=== PATIENT | male | born 1970 | race Caucasian/White ===

== ENCOUNTER → 2018-04-18 01:37 | Outpatient (CLI) | payer OTHER, SELFPAY ==
--- NOTE | 2018-05-01 10:10 | ZIOP_ITS ---
ZIO PATCH REPORT DATE OF DICTATION May 01, 2018 DATE OF RT-04/18/2018 REASON FOR STUDY Palpitations. REQUESTING PROVIDER Kena Rebollar M.D. FINDINGS The patient was monitored for five days and five hours. The predominant underlying rhythm was sinus rhythm. Average heart rate in sinus rhythm 82 beats per m inute. Range 61 to 135 beats per minute. There was rare ectopy. There was a single 5-beat atrial run with an average heart rate of 177 beats per minute. There were no pauses greater than 3 seconds. There was no higher-degree heart block. There were 20 patient events. One event correlated with supraventricular tachycardia, 4 events correl ated with isolated PVCs. All other events did not correlate with arrhythmias. FINAL INTERPRETATION Minor arrhythmias at times symptomatic. Madi Stahl M.D. MARCIA/majo T - 05/01/2018
== END ==
PROVIDERS: PCP Nurse Practitioner Family; Visit Provider Nurse Practitioner Family
DX: R00.2 Palpitations (principal); I49.9 Cardiac arrhythmia, unspecified; I47.1 Supraventricular tachycardia
CPT/HCPCS: 93225

== ENCOUNTER → 2018-04-22 13:07 | Outpatient (CLI) | payer OTHER, SELFPAY | PROVIDERS: PCP Nurse Practitioner Family; Visit Provider Nurse Practitioner Gerontology | DX: I48.91 Unspecified atrial fibrillation (principal); Z79.01 Long term (current) use of anticoagulants | CPT/HCPCS: 36415; 85610 ==

== ENCOUNTER 2018-04-23 09:37 | Emergency (ER) | payer OTHER, SELFPAY ==
[2018-04-23] VITALS (15 sets, daily range): BP systolic 105–129; BP diastolic 69–89; PULSE 73–82; RESP 11–37; TEMP 36.7; O2SAT 94–98
--- NOTE | 2018-04-23 10:04 | DI.REPORT_ITS ---
SYMPTOM/DIAGNOSIS: GI BLEED, WEAKNESS, OUTPATIENT SCHEDULED CHEST X-RAY CHEST X-RAY: PA and lateral. Comparison 01/02/17 The heart is normal in size. The lungs are clear. The mediastinal structures and pleura appear intact. CONCLUSION: Normal chest.
--- NOTE | 2018-04-23 10:06 | ED.GENADUL_ITS ---
Disposition Clinical Impression: GI bleed Disposition: HOME Condition: Improving Instructions: Rectal Bleeding (ED) Additional Instructions: We have made an appointment in surgery clinic for April 30 at 9:15 AM. Please begin daily Metamucil 1 tablespoon at your convenience each day. Return for persistent rectal bleeding, the development of chest pain, shortness of breath, or any other acute concerns. Continue all regular medications. Medical Decision Making - Lab Data Laboratory Results - last 24 hr 04/23/18 04/23/18 04/23/18 10:05 10:05 10:05 WBC 5.34 RBC 4.26 L Hgb 13.9 Hct 39.5 L MCV 92.7 MCH 32.6 MCHC 35.2 RDW 12.2 Plt Count 200 MPV 10.0 Immature Gran % 0.2 Neutrophils % 54.0 Lymphocytes % 32.0 Monocytes % 10.5 Eosinophils % 2.6 Basophils % 0.7 Absolute Neutrophils 2.88 Absolute Lymphocytes 1.71 Absolute Monocytes 0.56 Absolute Eosinophils 0.14 Absolute Basophils 0.04 PT 18.6 H INR 1.9 Sodium 136 Potassium 3.8 Chloride 102 Carbon Dioxide 25.0 Anion Gap 9.0 BUN 12 Creatinine 1.10 Estimated GFR/1.73 m2 >= 60.00 Glucose 108 H Calcium 8.3 L Magnesium 2.2 Total Bilirubin 0.4 AST 16 ALT 31 Alkaline Phosphatase 62 Troponin I < 0.02 Total Protein 7.1 Albumin 3.9 Patient ABO/Rh Antibody Screen 04/23/18 10:05 WBC RBC Hgb Hct MCV MCH MCHC RDW Plt Count MPV Immature Gran % Neutrophils % Lymphocytes % Monocytes % Eosinophils % Basophils % Absolute Neutrophils Absolute Lymphocytes Absolute Monocytes Absolute Eosinophils Absolute Basophils PT INR Sodium Potassium Chloride Carbon Dioxide Anion Gap BUN Creatinine Estimated GFR/1.73 m2 Glucose Calcium Magnesium Total Bilirubin AST ALT Alkaline Phosphatase Troponin I Total Protein Albumin Patient ABO/Rh O Negative Antibody Screen Negative Results reviewed for labs ordered during visit: Yes - EKG Data -: EKG Interpreted by Ut EKG shows normal: sinus rhythm 04/23/18 10:26 Normal sinus rhythm, the rate is 77, QRS narrow, no ST segment elevation present. - Medical Decision Making Pleasant 47-year-old male presents with 3 episodes of bloody brown stool. He has had a mild associated weakness. He arrives with unremarkable vital signs, no acute distress. His exam reveals mild epigastric tenderness without rebound or guarding and positive brown stool with external hemorrhoid present. Differential diagnosis includes gastric or large bowel active bleeding, colitis , external hemorrhoid bleed. He does have pre-standing follow-up with Dr. Sharma for outpatient colonoscopy. IV placed, labs including INR and type and screen obtained. Patient given small aliquot of fluid. Labs are reassuring with hematocrit of 39, platelets 200, INR 1.9, essentially unremarkable chemistries and negative troponin. Comparisons show recent hematocrit ranging 37-43. No active bleeding at this time and therefore feel the risk/benefit of continuing warfarin with this INR weighs in favor of continuing. Patient stable for outpatient follow-up. May be an external hemorrhoid, but he certainly needs more expedient colonoscopy. He has pre-standing follow-up in surgical clinic, we will ask our care management team to assist in speeding up this. Discussed with the patient return precautions to the ER. Stable for outpatient management. History of Present Illness - General Chief complaint: GI Bleed Stated complaint: UNKNOWN Time Seen by Provider: 04/23/18 09:54 Source: patient, RN notes reviewed Mode of arrival: ambulatory Limitations: no limitations - History of Present Illness Initial comments: GI bleed: 47-year-old male presents from home. He has a history of atrial fibrillation and palpitations which is anticoagulated with warfarin and is currently on Zio patch with chest x-ray schedule as an outpatient for today. These are long- standing issues. They have been associated with some shortness of breath. Today he reports 3 episodes of brown stool with bloody streaks. He said an associated gradual onset of a generalized, mild weakness and lightheadedness. Has not had syncope, new chest pain, nor shortness of breath today. No change to diet, no recent antibiotics. No history of GI bleed. No other acute exacerbating or ameliorating factors. Denies use of NSAIDs or daily aspirin. States he has been taking his medications as prescribed - Related Data Nicotine [Nicoderm Cq] 14 mg TD PRN patch 07/27/17 Atorvastatin [Lipitor] 40 mg PO DAILY #90 tab-cap 11/26/17 Metoprolol Succinate 50 mg PO DAILY #90 tab-cap 02/05/18 Trazodone HCl 50 mg PO HS #90 tab 03/07/18 Escitalopram Oxalate 10 mg PO DAILY #90 tab-cap 03/27/18 Diphenhydramine HCl 25 mg PO HS PRN 04/12/18 Lorazepam 0.5 mg PO As directed PRN #20 tab-cap MDD 0.5mg 04/16/18 Warfarin [Coumadin] 2.5 - 5 mg PO QPM #90 tab-cap 04/16/18 Allergies Allergy/AdvReac Type Severity Reaction Status Date / Time hydrocodone AdvReac Mild Headache, Unverified 04/23/18 09:59 Vomiting Review of Systems Other: 8 systems reviewed, otherwise negative Past Medical History - Past Medical History Medical history: AFIB, CVA/TIA, hypertension Surgical history: other (shoulder knee hernia, cardiac ablation) Family history: CAD/IN (mother), cancer (uncles) - Social History Alcohol use: none Drug use: none General Exam - General Limitations: no limitations, other General appearance: alert, in no apparent distress - Head Head exam: Present: atraumatic, normocephalic - Eye Eye exam: Present: PERRL, EOMI - Respiratory Respiratory exam: Present: normal lung sounds bilaterally. Absent: respiratory distress - Cardiovascular Cardiovascular Exam: Present: regular rate, normal rhythm - GI/Abdominal GI/Abdominal exam: Present: soft, tenderness, other (Minimal epigastric tenderness without rebound, guarding. Soft brown stool that is guaiac positive on rectal exam. No masses. There is a hemorrhoid, external at approximately 7: 00. It is not thrombosed or bleeding). Absent: distended - Extremities Exam Extremities exam: Present: normal inspection, normal capillary refill - Neurological Exam Neurological exam: Present: alert, oriented X3 - Psychiatric Psychiatric exam: Present: normal affect, normal mood - Skin Skin exam: Present: warm, dry, intact Course Vital Signs - 24 hr 04/23/18 09:51 Temperature 36.7 C Pulse 79 Respiratory 19 Rate Blood Pressure 129/89 Pulse Oximetry 97
[2018-04-23] MEDS: Normal Saline 1,000 ML 150 ML IV (10:08)
[2018-04-23 10:27] LABS: Abs Immature Grans 0.01 k/cumm (0.0-0.09); Absolute Basophil Count 0.04 k/cumm (0.0-0.2); Absolute Eosinophil Count 0.14 k/cumm (0.0-0.7); Absolute Lymphocyte Count 1.71 k/cumm (1.2-3.4); Absolute Monocyte Count 0.56 k/cumm (0.11-0.7); Absolute Neutrophil Count 2.88 k/cumm (1.2-6.7); Basophils % 0.7; Eosinophils % 2.6; HCT 39.5 % (40.0-50.0); HGB 13.9 g/dL (13.5-17.5); Immature Grans % 0.2; Mean Corp. HGB Concentration 35.2 g/dL (32.0-36.0); Mean Corpuscular Hemoglobin 32.6 pg (27.0-33.0); Mean Corpuscular Volume 92.7 fL (80-95); Monocytes % 10.5; Platelet Count 200 x1000/uL (130-400); RBC 4.26 m/cumm (4.50-6.00); RBC Distribution Width 12.2 % (11.8-14.1); White Blood Cell Count 5.34 k/cumm (4.4-10.8)
[2018-04-23 10:29] LABS: Prothrombin Time 18.6 sec (9.3-10.8)
[2018-04-23 10:35] LABS: ALT 31 U/L (12-78); AST 16 U/L (15-37); Albumin 3.9 g/dL (3.4-5.0); Alkaline Phosphatase 62 U/L (46-116); BUN 12 mg/dL (7-18); Bilirubin, Total 0.4 mg/dL (0.2-1.0); Calcium 8.3 mg/dL (8.5-10.1); Chloride 102 mmol/L (98-107); Glucose 108 mg/dL (70-100); Magnesium 2.2 mg/dL (1.8-2.4); Potassium 3.8 mmol/L (3.5-5.1); Sodium 136 mmol/L (136-145); Total Protein 7.1 g/dL (6.4-8.2)
[2018-04-23 10:36] LABS: INR 1.9 (1.0-3.5)
[2018-04-23 10:37] LABS: Troponin I < 0.02 ng/mL (0.00-0.06)
== END 2018-04-23 11:17 | disposition home or self-care (01) ==
PROVIDERS: Emergency Provider Emergency Medicine; PCP Nurse Practitioner Family
DX: K92.2 Gastrointestinal hemorrhage, unspecified (principal); I10 Essential (primary) hypertension; I48.91 Unspecified atrial fibrillation; Z79.01 Long term (current) use of anticoagulants; R06.00 Dyspnea, unspecified
CPT/HCPCS: 36415; 80053; 86850; 86900; 86901; 93005; 96360; 99284; 71046; 83735; 84484; 85025; 85610; 93010

== ENCOUNTER → 2018-04-26 02:05 | Outpatient (CLI) | payer OTHER, SELFPAY ==
--- NOTE | 2018-04-26 15:30 | PFT_ITS ---
INTERPRETATION SPIROMETRY: Spirometry shows mild obstructive airways disease with no significant bronchodilator response. LUNG VOLUMES: Lung volumes show no evidence of restriction. DIFFUSION CAPACITY: Normal. AIRWAY RESISTANCE: Normal. IMPRESSION: Mild obstructive airways disease with no significant bronchodilator response. When this study was compared to previous one from 01/24 and 12/28/11, the patient initially had a stable lung volume measurement but from 2011 there is an 860 cc. decline in FVC, FEV-1 has declined by 750 cc. Clinical correlation therefore recommended.
[2018-04-26] MEDS: Inhaler, Assist Device 1 EACH MC (16:22)
[2018-04-26] MEDS: Albuterol HFA 18 GM 200 PUFF INH IH (16:23)
== END ==
PROVIDERS: PCP Nurse Practitioner Family; Visit Provider Nurse Practitioner Family
DX: R06.09 Other forms of dyspnea (principal)
CPT/HCPCS: 94060; 94150; 94726; 94729

== ENCOUNTER 2018-05-10 15:30 | Outpatient (RCR) | payer OTHER, SELFPAY ==
--- NOTE | 2018-04-18 13:16 | NT_ITS ---
April 18, 2018 Estuardo cancelled todays scheduled appt. due to a schedule conflict.
--- NOTE | 2018-04-22 16:15 | PTTR_ITS ---
DATE: 04/22/18 SUBJECTIVE: Patient reports he feels like his symptoms are overall about the same. His radicular symptoms down his leg go to same level as last session. He states he has good days and bad days. States he has been trying to do his exercises at home. States he feels relief for a couple hours after treatment sessions. OBJECTIVE: Manual therapy: ([id number]). Performed hamstring, single knee to chest, piriformis, and ITB stretches bilaterally. STM to right lower back. Patient states he feels relief from STM for a couple hours after treatment. Therapeutic procedures ([id number]). [X] See flow sheet: Continued progressing core and hip stabilization program. [X] Provided skilled instruction in proper exercise performance: [X] Provided skilled manual cues to facilitate proper muscle recruitment and/or movement pattern: cues needed to keep breathing throughout session. Declined need for modalities post session. States he will use his TENs unit at home. Direct treatment time: 35 minutes Total treatment time: 35 minutes Daysi Carr, SPT Sydney Mayer, MPT
--- NOTE | 2018-04-29 15:30 | PTTR_ITS ---
DATE: 04/29/18 SUBJECTIVE: Having good days and bad days. Thinks he maybe doing a little better this .past week. Drove to [place] over the weekend. Was seen in ED at the end of last week for an unrelated issues, reluctant to discuss ED info but indicated this was not related to anything we are doing in PT. I did discuss this information with supervising PT. Patient reiterated that he was not interested in performing any exercises in the gym area, not interested in working out with other clients. Would rather do his exercises on his owe. Mentioned that he would like to start lifting again this week, strongly suggested that this would not be a good idea at this time with his right leg radicular issues. OBJECTIVE: Manual therapy: ([id number]). Performed mobilization of lumbopelvic region consisting of SKTC, stretching of hamstrings, piriformis and IT bands. Light soft tissue mobilization throughout the low back and right gluts while in prone position. Due to recent issues with rectal bleeding this was performed conservatively. Therapeutic procedures (51502f1). * X HEP review: Given hooklying marching, unilateral bent knee fall outs and bridging to add to HEP. Able to demonstrate these appropriately in clinic today. See file for copy of written instructions. Stressed avoidance of holding his breath with exercises and avoidance of activation of rectus abdominis. * x See flow sheet: Focus on core and hip stabilization. Did complain of radicular symptoms into the right hamstrings after performing left clam shell exercise today. Was instructed to let us know if any exercises reproduce right radicular symptoms so we can adjust activities accordingly. * x Provided skilled instruction in proper exercise performance * x Provided skilled manual cues to facilitate proper muscle recruitment and/ or movement pattern * Ended session with spot cold to right low back / buttock and global MHP to remaining low back x 7 minutes while in seated position at no charge. ( Originally time was set for 10 minutes, but patient indicated he had had modalities long enough.) Plan: To be seen by supervising PT next week, instructed to continue with HEP. Direct treatment time: 35 minutes Total treatment time: 42 minutes
--- NOTE | 2018-05-10 15:30 | PTTR_ITS ---
DATE: May 10, 2018 SUBJECTIVE: Estuardo reports that he does not feel that his symptoms have gotten any better. He continues to have radiation and nerve shocks in his right leg primarily in the anterior thigh. He notes that his right leg will occasionally give out. He feels that it is going to buckle backwards at times. 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 He knows that he is not always good with his mechanics. But also knows that his back does not seem to be getting better at this time. OBJECTIVE: Manual therapy: ([id number]). Soft tissue stretching to include hamstring, ITB, piriformis, SKC and lumbopelvic distraction via leg pull. STM throughout the entire low back and pelvic brim. CFM and TPR also provided.Reviewed HEP. Continued emphasis on body mechanics and postural awareness. Declined need of modality post session. Held on therex routine at todays session due to level of irritation. Recommend he follow up with his PCP for further intervention via [facility]. Will hold from PT at this time. Direct treatment time: 30 minutes Total treatment time: 30 minutes
== END 2018-05-17 23:59 | disposition home or self-care (01) ==
LOC: PT 15:30
PROVIDERS: PCP Nurse Practitioner Family; Referring Provider Nurse Practitioner Family; Visit Provider Nurse Practitioner Family
DX: M54.16 Radiculopathy, lumbar region (principal); R20.0 Anesthesia of skin; R20.2 Paresthesia of skin; R26.89 Other abnormalities of gait and mobility
CPT/HCPCS: 97110; 97140

== ENCOUNTER 2018-05-16 08:24 | Day surgery (SDC) | payer OTHER, SELFPAY ==
--- NOTE | 2018-05-16 06:41 | PDOC.DISCH_ITS ---
Discharge - Discharge Orders - Discharge Plan Disposition: HOME Condition: Fair Diet:: As Tolerated Equipment/Supplies:: No Equipment Needed Activity:: Activity as Tolerated - Instructions Micromedex Instructions: Colonoscopy (DC), Hemorrhoids (DC), Colorectal Polyps (DC) Additional Instructions: Findings: 1. small polyp 2. internal hemorrhoids 3. external hemorrhoid/rectal prolapse Follow up: depends on final pathology New Medications: none Diet: high fiber diet Medications: restart Coumadin tonight Please call if you develop: fevers >101.5 Nausea or Vomiting Abdominal pain that is not transient 1. Because there will be medication in your system for the next 24 hours, you may feel a little sleepy. Your coordination will be affected. Therefore: a. Do not drive or operate dangerous equipment for 24 hours. b. Do not drink alcohol beverages for 24 hours (not even beer). c. Plan to go home and rest for the day. 2. Generally there are no restrictions on your activity after a day or so has gone by, but you may feel a bit fatigued for a few days. 3 After you arrive home you may have a light meal and return to a normal diet as you can tolerate it without feeling sick to your stomach. 4. After surgery, you may feel pain or discomfort. This should be only transient , but if it persists please contact your doctor. 5. If there are any questions regarding the findings of your procedure, please feel free to contact your doctor. 6. If you are unable to contact your doctor with a problem, contact the hospital at [phone]. 7. Continue all your regular medications unless directed otherwise. I understand the above instructions and have no questions. Signature of Patient or Responsible Adult Escort Date/Time Name of Responsible Adult Escort Signature of Nurse Date/Time
[2018-05-16 08:55] VITALS: BP 117/82; PULSE 79; RESP 16; TEMP 36.7; O2SAT 96
[2018-05-16 09:13] LABS: INR 1.1 (1.0-3.5)
[2018-05-16] MEDS: Lactated Ringers 1,000 ML 80 ML IV (09:26)
[2018-05-16] MEDS: Lactated Ringers 1,000 ML 400 ML IV (10:21)
--- NOTE | 2018-05-16 10:41 | BOWEL_PTH ---
PATIENT: Estuardo Garza LOC: [facility] U#:[id number] AGE/SX: 47/M ROOM: RE05/16/[address]: Kelly Fisher MD : [id number] BED: DIS: 05/16/2018 SPEC #: [id number] RECD: 05/16/18 12:26 STATUS: ETIENNE REQ #: [id number] ESCOBAR: 05/16/18 10:[address]: Kelly Fisher DEPT: Surgical Specimen RECD BY: Yeny Mckeon ENTERED: 05/16/18 12:27 SP TYPE: Bowel OTHR DR: DANISH Case Tissues: 1 - BIOPSY BOWEL Procedures: GROSS AND MICRO LEVEL 4 Comments: [id number]
[2018-05-16 11:02] VITALS: BP 97/62; PULSE 69; RESP 16; TEMP 36.3; O2SAT 97
[2018-05-16 11:15] VITALS: BP 102/64; PULSE 72; RESP 16; TEMP 36.7; O2SAT 96
--- NOTE | 2018-05-16 12:39 | COLE_ITS ---
REPORT OF OPERATIVE PROCEDURE - COLONOSCOPY DATE OF SURGERY May 16, 2018 PREOPERATIVE DIAGNOSIS Occult blood. POSTOPERATIVE DIAGNOSES 1. Small sigmoid polyp. 2. Internal hemorrhoids. 3. External skin tag/prolapse. PROCEDURE PERFORMED Colonoscopy with polypectomy by cold forceps. ANESTHESIA TYPE MAC. ASA - III ANESTHESIA PROVIDER Jaimee Nash CRNA SURGEON Ivory Fisher M.D. KRAFT MILL OPERATOR None. BLOOD LOSS Minimal. SPECIMENS Sigmoid polyp. PREP MiraLax and Dulcolax, which were adequate. COMPLICATIONS No immediate complications. INDICATIONS Mr. Garza is a very pleasant 47-year-old gentleman with a history of occult blood who was seen in t he office for a colonoscopy. The risks, benefits and complications were reviewed with him and he wish ed to proceed. No guarantees were given or implied. FINDINGS A very small flat sigmoid polyp, some internal hemorrhoids, as well as one external skin tag/prolapse . PROCEDURE START - 10:29. PROCEDURE END - 10:42. RETRACTION TIME - From 10:30 to 10:42 OPERATIVE PROCEDURE After informed consent was obtained, the patient was taken to the Endoscopy Suite, placed in the left decubitus position. Monitors were applied and a time-out was done. The patient's name, date of bir th, procedure type, allergies to medications, and metal in his body were all reviewed. The patient wa s then sedated, and once sedated and comfortable a rectal exam was done. External exam was intact wi th some mucosal prolapse. Internal exam revealed normal sphincter tone and a smooth prostate and no p alpable masses. The scope was introduced and retroflexed, some internal hemorrhoids were noted. The scope was straightened and advanced to the cecum without difficulty. The terminal ileum and appendice al orifice were identified. The prep was adequate. The scope was then slowly retracted all the way b ack into the rectum. One small polyp was identified in the sigmoid colon, which was flat, maybe a co uple of millimeters in size and it was removed with cold forceps. One in the rectum, the scope was re moved. The scope was removed and the patient was woken up, and taken back to [facility] in stab le condition. Followup depends on final pathology.
== END 2018-05-16 12:06 | disposition home or self-care (01) ==
PROVIDERS: PCP Nurse Practitioner Family; Visit Provider Surgery
DX: R19.5 Other fecal abnormalities (principal); K63.5 Polyp of colon; K64.8 Other hemorrhoids; K64.4 Residual hemorrhoidal skin tags
CPT/HCPCS: 45380; 36415; 88305; 85610

== ENCOUNTER 2018-05-17 11:12 | Outpatient (CLI) | payer OTHER, SELFPAY ==
--- NOTE | 2018-05-17 11:12 | DI.REPORT_ITS ---
SYMPTOMS/DIAGNOSIS: LT LEG SWELLING, DISCOLORATION, ? DVT, M79.89 LEFT LOWER EXTREMITY ULTRASOUND: The deep veins of the left lower extremity show normal compression, augmentation and color flow. No evidence of a deep venous thrombus is seen. The visualized portions of the greater saphenous vein appear patent. No focal fluid collections are seen in the soft tissues. IMPRESSION: No evidence of a left lower extremity deep venous thrombus.
== END 2018-05-17 11:13 ==
PROVIDERS: PCP Nurse Practitioner Family; Visit Provider Nurse Practitioner Family
DX: M79.89 Other specified soft tissue disorders (principal); R22.42 Localized swelling, mass and lump, left lower limb
CPT/HCPCS: 93971

== ENCOUNTER 2018-05-17 12:07 | Outpatient (CLI) | payer OTHER, SELFPAY ==
[2018-05-17 12:28] LABS: Abs Immature Grans 0.01 k/cumm (0.0-0.09); Absolute Basophil Count 0.03 k/cumm (0.0-0.2); Absolute Eosinophil Count 0.07 k/cumm (0.0-0.7); Absolute Lymphocyte Count 1.65 k/cumm (1.2-3.4); Absolute Monocyte Count 0.54 k/cumm (0.11-0.7); Absolute Neutrophil Count 3.74 k/cumm (1.2-6.7); Basophils % 0.5; Eosinophils % 1.2; HCT 40.6 % (40.0-50.0); HGB 14.2 g/dL (13.5-17.5); Immature Grans % 0.2; Lymphocytes % 27.3; Mean Corpuscular Hemoglobin 32.3 pg (27.0-33.0); Mean Corpuscular Volume 92.5 fL (80-95); Mean Platelet Volume 9.8 fL (8.0-11.0); Monocytes % 8.9; Neutrophils % 61.9; Platelet Count 208 x1000/uL (130-400); RBC 4.39 m/cumm (4.50-6.00); RBC Distribution Width 12.3 % (11.8-14.1); White Blood Cell Count 6.04 k/cumm (4.4-10.8)
[2018-05-17 12:31] LABS: INR 1.2 (1.0-3.5); Prothrombin Time 11.6 sec (9.3-10.8)
[2018-05-17 12:34] LABS: ALT 32 U/L (12-78); AST 18 U/L (15-37); Albumin 4.1 g/dL (3.4-5.0); Alkaline Phosphatase 63 U/L (46-116); Anion Gap 6.6 mmol/L (3-11); BUN 15 mg/dL (7-18); Bilirubin, Total 0.6 mg/dL (0.2-1.0); CO2 27.4 mmol/L (21.0-32.0); CREATININE 1.11 mg/dL (0.70-1.30); Calcium 8.3 mg/dL (8.5-10.1); Chloride 104 mmol/L (98-107); Glucose 88 mg/dL (70-100); Potassium 3.9 mmol/L (3.5-5.1); Sodium 138 mmol/L (136-145); Total Protein 7.4 g/dL (6.4-8.2)
[2018-05-17 12:56] LABS: D-Dimer 712 ng/mlFEU (<500)
== END 2018-05-17 12:08 ==
PROVIDERS: PCP Nurse Practitioner Family; Visit Provider Nurse Practitioner Family
DX: M79.89 Other specified soft tissue disorders (principal)
CPT/HCPCS: 36415; 80053; 85025; 85379; 85610

== ENCOUNTER 2018-05-23 11:58 | Emergency (ER) | payer OTHER, SELFPAY ==
[2018-05-23 12:01] VITALS: BP 132/75; PULSE 80; RESP 16; TEMP 36.7; O2SAT 98
--- NOTE | 2018-05-23 12:30 | ED.GENADUL_ITS ---
Discharge Plan Discharge Details Chief Complaint: Vascular Clinical Impression: Hematoma of left lower extremity Reason For Visit: left leg bruising Primary Care Provider: Kena Rebollar ED Provider: Sav Mackey Disposition Patient Disposition: HOME Condition: Good Home Meds and New Rx's Prescriptions: Continue nicotine 1 EACH patch 24 hour 14 mg Transdermal PRN RF: 0 atorvastatin [Lipitor] 40 MG tablet 40 mg PO DAILY Qty: 90 RF: 3 Metoprolol Succinate 50 MG TAB.ER.24H 50 mg PO DAILY Qty: 90 RF: 3 trazodone 100 MG tablet 50 mg PO HS Qty: 90 RF: 3 escitalopram oxalate 5 MG tablet 10 mg PO DAILY Qty: 90 RF: 0 diphenhydramine HCl 25 MG tablet 25 mg PO HS PRNRF: 0 warfarin [Coumadin] 5 MG tablet 2.5 - 5 mg PO QPM Qty: 90 RF: 4 buspirone 7.5 MG tablet 7.5 mg PO BID Qty: 90 RF: 0 lorazepam 0.5 MG tablet 0.5 - 1 mg PO As directed MDD 1mg PRNQty: 30 RF: 0 acetaminophen [Tylenol] 325 MG tablet 325 mg PO PRN PRNRF: 0 Discharge Instructions Additional Instructions: You likely had a knee strain or hematoma and the bruising should go away in a week or so if symptoms continue next week see your pimary care provider if you have severe worsening of pain, difficulty breathing or fevers return to the emergency department Discharge Data Discharge Physician: Sav Mackey Medical Decision Making [facility] Narrative Medical decision making narrative: 47 yo male with hx of afib on coumadin, cva, who comes in with complaint of left leg bruising. He states 6 or so days ago he twisted the left knee and it became black and blue. He has not had any significant pain but the bruising has spread down his leg so he came here. I suspect the patient had a strain of the knee vs hematoma and now the bruising is going down the leg due to gravity. There is no findings such as posterior calf pain or significant leg swelling to suggest dvt so do not feel u/s indicated at this time. No redness or warmth so doubt infection such as septic joint or cellulitis. Will have him wrap the calf with kd wrap and keep it elevated, will d/c home and advised f/u with pcp and return precautions Differential Diagnosis hematoma, strain, contusion HPI - General Adult General Mode of arrival: ambulatory . Date/Time Provider Initiated Documentation: 05/23/18 12:01 . Limitations to Documentation: no limitations . Information obtained by: patient . History of Present Illness 47 year old M presents to the emergency department with the chief complaint of left leg bruising, described as mild and moderate, with intensity rated at 3. Quality is described as aching, and is localized to the lower extremity. Patient reports no radiation. Patient started experiencing this day(s) (6) No relieving factors improve symptom(s), No exacerbating factors reported . Patient notes no other symptoms.. Patient did receive the following treatments prior to arrival, none Related Data Home Medications Medication Instructions Recorded Confirmed nicotine 14 mg TRANSDERMAL PRN patch 07/27/17 05/23/18 diphenhydramine HCl 25 mg PO HS PRN 04/12/18 05/23/18 acetaminophen [Tylenol] 325 mg PO PRN PRN 05/16/18 05/23/18 Allergies Allergy/AdvReac Type Severity Reaction Status Date / Time hydrocodone AdvReac Mild Headache, Unverified 05/23/18 12:07 Vomiting General Stated Complaint: Vascular NAKITA: 3 Review of Systems Review of Systems All systems reviewed & are unremarkable except as noted in HPI and below Constitutional Denies chills, Denies fever(s) and Denies weakness Eyes Patient Denies loss of vision ENT Denies change in voice Cardiovascular Denies chest pain and Denies dyspnea Respiratory Denies dyspnea Gastrointestinal Denies abdominal pain, Denies nausea and Denies vomiting Genitourinary Denies dysuria Musculoskeletal Reports joint swelling and Denies limited range of motion Neurologic Denies loss of vision and Denies weakness Psychiatric Denies depression Endocrine Denies cold intolerance and Denies heat intolerance Allergic/Immunologic Reports urticaria PFSH Family History Mother Presence of permanent cardiac pacemaker Diabetes Atrial fibrillation Heart disease Father Essential hypertension Sister Diabetes Son No problems noted. Son No problems noted. Paternal Grandmother Dementia Paternal Grandfather No problems noted. Paternal Uncle Colon cancer Paternal Aunt Breast cancer Medical History Anxiety CVA (cerebral vascular accident) Chronic low back pain Colon polyps Essential hypertension Hyperlipidemia Irritable bowel syndrome MARY (obstructive sleep apnea) Obesity Paroxysmal atrial fibrillation (11/20/16) Sensorineural hearing loss Tinnitus Social History current occupation: [employer] pets and animals: Yes pets and animals: cat(s) and dog(s) Smoking/Tobacco Use Status: Current every day passive smoking exposure: No alcohol intake: never substance use type: does not use special essence needs: No Surgical History Ablation and pulmonary vein isolation (02/05/17) Colonoscopy - MAC Repair of inguinal hernia Repair, Undescended Testicle Right knee surgery (~1988) Right shoulder surgery (08/26/08) Vasectomy (03/18/10) Exam Const General: no acute distress Orientation: alert HENMT Head: normal to inspection Ears: external ears normal General nose exam: external nose normal Mouth: moist mucous membranes Eyes General: appearance normal, both eyes and all related structures Neck Neck: normal visual inspection Resp Effort & Inspection: normal respiratory effort and able to speak in complete sentences Cardio Rate: regular rate Skin General skin exam: no rashes or lesions noted Neuro General: alert and oriented x3 Extrem General: full ROM, normal capillary refill and other (bruising to lateral left calf and medial right foot without significant pain and full rom, intact sensation, no posterior calf pain or diffuse leg swelling, 2+ dp/pt pulses) Psych Mental Status: mental status grossly normal Course Vital Signs Temperature 36.7 C 05/23/18 12:01 Pulse 80 05/23/18 12:01 Respiratory Rate 16 05/23/18 12:01 Blood Pressure 132/75 05/23/18 12:01 Pulse Oximetry 98 05/23/18 12:01 Temperature 36.7 C 05/23/18 12:01 Pulse 80 05/23/18 12:01 Respiratory Rate 16 05/23/18 12:01 Blood Pressure 132/75 05/23/18 12:01 Pulse Oximetry 98 05/23/18 12:01
[2018-05-23 12:36] VITALS: BP 121/80; PULSE 82; RESP 16; TEMP 36.6; O2SAT 97
== END 2018-05-23 12:37 | disposition home or self-care (01) ==
LOC: ER 12:52
PROVIDERS: Emergency Provider Emergency Medicine; PCP Nurse Practitioner Family
DX: S80.12XA Contusion of left lower leg, initial encounter (principal); X50.1XXA Overexertion from prolonged static or awkward postures, initial encounter; I10 Essential (primary) hypertension; Z79.01 Long term (current) use of anticoagulants
CPT/HCPCS: 99282

== ENCOUNTER 2018-05-24 01:41 | Outpatient (CLI) | payer OTHER, SELFPAY ==
--- NOTE | 2018-05-24 08:41 | DI.MRI_ITS ---
SYMPTOM/DIAGNOSIS: CHRONIC LOW BACK PAIN, ? WORSENING STENOSIS, LUMBAR RADICULOPATHY, M54.15, RT LEG PAIN AND NUMBNESS LUMBAR SPINE MRI: Comparison is made with 04/05/17. T 1, T 2 and STIR sagittal, T 1 and T 2 axial and T 1 coronal sequences were performed. Degenerative disc changes are again noted throughout the lumbar spine. There is loss of disc height and endplate osteophyte formation at all levels. There are degenerative signal changes in the endplates, greatest at L 4-5. Degenerative changes are most severe at L 4- 5. There is again noted to be severe neural foraminal narrowing at this level. Severe right neural foraminal narrowing is seen at L 5-S 1, unchanged. There is a mild degenerative scoliosis, stable. There is no evidence of a disc herniation. IMPRESSION: Stable degenerative changes of the lumbar spine, most severe at L 4-5.
== END 2018-05-24 02:01 ==
PROVIDERS: PCP Nurse Practitioner Family; Visit Provider Nurse Practitioner Family
DX: M54.5 Low back pain (principal); M79.661 Pain in right lower leg; M54.17 Radiculopathy, lumbosacral region; M51.17 Intervertebral disc disorders with radiculopathy, lumbosacral region
CPT/HCPCS: 72148

== ENCOUNTER 2018-06-03 01:23 | Outpatient (CLI) | payer OTHER, SELFPAY ==
[2018-06-03 08:09] LABS: INR 2.3 (1.0-3.5); Prothrombin Time 21.8 sec (9.3-10.8)
== END 2018-06-03 01:43 ==
PROVIDERS: PCP Nurse Practitioner Family; Visit Provider Nurse Practitioner Family
DX: I48.91 Unspecified atrial fibrillation (principal); Z79.01 Long term (current) use of anticoagulants
CPT/HCPCS: 36415; 85610

== ENCOUNTER 2018-06-18 02:34 | Outpatient (CLI) | payer OTHER, SELFPAY ==
[2018-06-18 09:39] LABS: INR 1.7 (1.0-3.5); Prothrombin Time 16.3 sec (9.3-10.8)
== END 2018-06-18 02:54 ==
PROVIDERS: PCP Nurse Practitioner Family; Visit Provider Nurse Practitioner Family
DX: I48.91 Unspecified atrial fibrillation (principal); Z79.01 Long term (current) use of anticoagulants
CPT/HCPCS: 36415; 85610

== ENCOUNTER 2018-07-03 02:07 | Outpatient (CLI) | payer OTHER, SELFPAY ==
[2018-07-03 09:05] LABS: INR 1.8 (1.0-3.5); Prothrombin Time 17.3 sec (9.3-10.8)
== END 2018-07-03 02:27 ==
PROVIDERS: PCP Nurse Practitioner Family; Visit Provider Nurse Practitioner Family
DX: I48.91 Unspecified atrial fibrillation (principal); Z79.01 Long term (current) use of anticoagulants
CPT/HCPCS: 36415; 85610

== ENCOUNTER 2018-08-16 00:56 | Outpatient (CLI) | payer OTHER, SELFPAY ==
[2018-08-16 08:53] LABS: INR 2.2 (1.0-3.5); Prothrombin Time 20.9 sec (9.3-10.8)
== END 2018-08-16 01:16 ==
PROVIDERS: PCP Nurse Practitioner Family; Visit Provider Nurse Practitioner Family
DX: I48.91 Unspecified atrial fibrillation (principal); Z79.01 Long term (current) use of anticoagulants
CPT/HCPCS: 36415; 85610

== ENCOUNTER 2018-09-25 01:02 | Outpatient (CLI) | payer OTHER, SELFPAY ==
[2018-09-25 09:49] LABS: INR 2.1 (0.9-1.1); Prothrombin Time 21.5 sec (9.3-11.0)
== END 2018-09-25 01:22 ==
PROVIDERS: Nurse Practitioner Gerontology; PCP Nurse Practitioner Family; Visit Provider Nurse Practitioner Family
DX: I48.91 Unspecified atrial fibrillation (principal); Z79.01 Long term (current) use of anticoagulants
CPT/HCPCS: 36415; 85610

== ENCOUNTER 2018-10-07 00:06 | Outpatient (CLI) | payer OTHER, SELFPAY ==
--- NOTE | 2018-10-07 07:17 | MERGEMPI_ITS ---
*[facility]* *[facility]* [address] [place] [address] Myocardial Perfusion Imaging - SPECT Clement protocol Date of study: 10/07/2018 *PATIENT PRESENTATION* Height: 170.2cm (67in) Blood Pressure: Weight: 97.7kg (215lb) BSA: 2.19m^2 Referring physician: Sav Wang MD Ordering physician: Felipa Munoz Impressions: Normal perfusion by Tc99m Sestamibi Imaging. Summary: 1. Myocardial perfusion imaging: No myocardial perfusion defects noted. 2. The calculated left ventricular ejection fraction after stress: 55%. 3. Stress: The target heart rate was achieved. Indication: R07.9 I 48.91. History: REASON FOR TESTING: EXERTIONAL CHEST DISCOMFORT DURING STRESS TEST DONE IN FEBRUARY 2018. HE IS HERE TODAY FOR PERFUSION STUDY TO RISK STRATIFY FURTHER. PATIENT DENIES CHEST PAIN/PRESSURE AND SHORTNESS OF BREATH TODAY. SIGNIFICANT PAST MEDICAL HISTORY: SYMPTOMATIC PAROXYSMAL ATRIAL FIBRILLATION WITH ABLATION THERAPY DONE IN JANUARY 2017, CVA, MARY ON BIPAP THERAPY. SMOKING STATUS: NEVER EXERCISE ROUTINE: DAILY ADL'S Risk factors: Family history of coronary artery disease. Hypertension. Obesity. Dyslipidemia. Cholesterol: 132mg/dl. HDL: 33mg/dl. LDL: 68mg/dl. Triglycerides: 182mg/dl. ALLERGIES: HYDROODONE. MEDICATIONS: LIPITOR 40 MG DAILY, COUMADIN DAILY 5 DAILY AND 2.5 MG ON SUNDAY, DILTIAZEM CD 120 MG DAILY, TYLENOL 1000 MG PRN. Imaging Technique: Protocol: Clement protocol. Acquisition: Gated SPECT; 1 day - rest/stress. The patient was imaged in the supine position. Attenuation correction used. Isotope administration: - Rest. Tc[99m]-sestamibi. Dose: 12.1mCi. Date: 10/07/2018. Injection time: 08:20 AM. Injection to stress time: 00:45. - Stress. Tc[99m]-sestamibi. Dose: 37mCi. Injection time: 10:00 AM. 1-2 min before end of exercise Baseline ECG: SINUS RHYTHM. T WAVE INVERSION IN LEAD V1, NOT SEEN ON EKG FROM 04/23/2019. Stress protocol: + +---+ + !Stage !HR !BP (mmHg) ! + +---+ + !Baseline supine !81 !120/90 (100)! + +---+ + !Baseline standing !87 !122/96 (105)! + +---+ + !Stage I; 1.7mph, 10degrees; 3 min !103!138/80 (99) ! + +---+ + !Stage II; 2.5mph, 12degrees; 3 min !117!138/80 (99) ! + +---+ + !Stage III; 3.4mph, 14degrees; 3 min!132!160/80 (107)! + +---+ + !Peak stress !148! ! + +---+ + !Recovery; 1 min !130!150/80 (103)! + +---+ + !Recovery; 3 min !107!148/80 (103)! + +---+ + !Recovery; 6 min !101!130/86 (101)! + +---+ + !Recovery; 9 min !102!130/86 (101)! + +---+ + !Recovery; 12 min !102!116/90 (99) ! + +---+ + * Stress results: Maximal heart rate during stress was 148bpm (87% of maximal predicted heart rate). The maximal predicted heart rate was 171bpm. The target heart rate was achieved. The rate-pressure product for the peak heart rate and blood pressure was 05423jq Hg/min. Stress ECG: STRESS TEST ENDED IN 10 MINUTES 37 SECONDS DUE TO RIGHT LEG CRAMPS. NORMAL HEART RATE AND BLOOD PRESSURE RESPONSE TO EXERCISE. MAX HEART RATE: 148 86 % OF TARGET HEART RATE MET'S: 12.36 NO ECTOPY. NO ANGINA. T WAVES INVERSIONS AT BASELINE IN LEAD V1 THEN FLATTENED AT 2 MINUTES & 49 SECONDS OF EXERCISE TO 4 MINUTE RECOVERY. T-WAVES INVERTED RETURNED AGAIN IN V1 AT 4 MINUTE RECOVERY. NO SIGNIFICANT ST SEGMENT CHANGES. FUNCTIONAL CAPACITY: ABOVE AVERAGE CAPACITY Myocardial perfusion: Imaging information: gated. No myocardial perfusion defects noted. Ventricular Function (Wall Motion): The calculated left ventricular ejection fraction after stress: 55%. Study data: Sav Wang MD supervised and was readily available during the procedure. This study was interpreted by [facility]. Study status: Routine. Consent: The risks, benefits, and alternatives to the procedure were explained to the patient and informed consent was obtained. Procedure: Initial setup. A baseline ECG was recorded. Surface ECG leads and manual cuff blood pressure measurements were monitored. Heart sounds: Normal. Lung sounds: Normal. Treadmill exercise testing was performed using the Clement protocol. Study completion: All catheters inserted during the procedure were removed. The patient tolerated the procedure well and was discharged from the lab. Discharge: The patient left the laboratory in stable condition. Birthdate: Patient birthdate: 1970. Sex: Gender: male. Study date: Study date: 10/07/2018. Study time: 07:17 AM. Electronically signed by Sav Wang MD 10/07/2018 15:59
== END 2018-10-07 00:26 ==
PROVIDERS: PCP Nurse Practitioner Family; Visit Provider Internal Medicine Cardiovascular Disease
DX: R07.9 Chest pain, unspecified (principal); I48.0 Paroxysmal atrial fibrillation; I10 Essential (primary) hypertension; E78.5 Hyperlipidemia, unspecified; Z82.49 Family history of ischemic heart disease and other diseases of the circulatory system
CPT/HCPCS: 78452; 93017

== ENCOUNTER 2018-11-07 00:59 | Outpatient (CLI) | payer OTHER, SELFPAY ==
[2018-11-07 08:12] LABS: INR 2.3 (0.9-1.1); Prothrombin Time 22.7 sec (9.3-11.0)
== END 2018-11-07 01:19 ==
PROVIDERS: PCP Nurse Practitioner Family; Visit Provider Nurse Practitioner Family
DX: I48.91 Unspecified atrial fibrillation (principal); Z79.01 Long term (current) use of anticoagulants
CPT/HCPCS: 36415; 85610

== ENCOUNTER 2018-12-04 02:36 | Outpatient (CLI) | payer OTHER, SELFPAY ==
[2018-12-04 12:56] LABS: INR 2.2 (0.9-1.1); Prothrombin Time 22.3 sec (9.3-11.0)
== END 2018-12-04 02:56 ==
PROVIDERS: PCP Nurse Practitioner Family; Visit Provider Nurse Practitioner Family
DX: I48.91 Unspecified atrial fibrillation (principal); Z79.01 Long term (current) use of anticoagulants
CPT/HCPCS: 36415; 85610

== ENCOUNTER 2018-12-05 14:35 | Outpatient (CLI) | payer OTHER, SELFPAY | END 2018-12-05 14:55 | PROVIDERS: PCP Nurse Practitioner Family; Visit Provider Internal Medicine Cardiovascular Disease | DX: R00.0 Tachycardia, unspecified (principal); I48.0 Paroxysmal atrial fibrillation | CPT/HCPCS: 93225 ==

== ENCOUNTER 2018-12-10 11:36 | Outpatient (CLI) | payer OTHER, SELFPAY ==
--- NOTE | 2018-12-10 16:33 | HOLTER_ITS ---
HOLTER REPORT Date of dictation: December 10, 2018 Study Indication: Not available. Requesting Provider: Felipa Munoz M.D. Findings: The patient was monitored for 2 days. Baseline sinus rhythm. Average heart rate 91 bpm, range 67-143 bpm. There were 19 PVCs and 1 couplet. There were 16 PACs. There was one 3-beat atrial run, maximum heart rate 231 bpm. One patient event, which did not correlate with arrhythmias. Final Interpretation: No significant tachy or arash arrhythmias.
== END 2018-12-10 11:56 ==
PROVIDERS: PCP Nurse Practitioner Family; Visit Provider Internal Medicine Cardiovascular Disease
DX: R00.0 Tachycardia, unspecified (principal); I48.0 Paroxysmal atrial fibrillation
CPT/HCPCS: 93226

== ENCOUNTER 2018-12-11 01:47 | Outpatient (CLI) | payer OTHER, SELFPAY ==
--- NOTE | 2018-12-11 15:00 | DI.CT_ITS ---
SYMPTOM/DIAGNOSIS: ? EPIGASTRIC HERNIA OR UMBILICAL HERNIA, K46.9, BULGE ABDOMEN CT: Oral contrast was administered prior to the exam. No IV contrast was administered. There is a small amount of fat seen at the umbilicus, not significantly changed from 2012. No additional abdominal wall hernias are seen. There is no evidence of a hiatal hernia or diaphragmatic hernia. The liver, gallbladder, spleen, pancreas, kidneys and adrenals are unremarkable. The visualized portions of the bowel are also unremarkable. Degenerative changes are seen in the spine. IMPRESSION: Stable small fatty containing umbilical hernia.
== END 2018-12-11 02:07 ==
PROVIDERS: PCP Nurse Practitioner Family; Visit Provider Nurse Practitioner Family
DX: R19.00 Intra-abdominal and pelvic swelling, mass and lump, unspecified site (principal); K42.9 Umbilical hernia without obstruction or gangrene
CPT/HCPCS: 74150

== ENCOUNTER 2019-01-14 10:31 | Outpatient (CLI) | payer OTHER, SELFPAY ==
[2019-01-14 11:01] VITALS: BP 120/79; PULSE 86; RESP 22; TEMP 36.8; O2SAT 96
[2019-01-14 11:17] LABS: Prothrombin Time 10.4 sec (9.3-11.0)
--- NOTE | 2019-01-14 12:43 | DI.RAD_ITS ---
SYMPTOMS/DIAGNOSIS: LUMBAR SPONDYLOSIS PAIN CLINIC LUMBAR SPINE: Fluoroscopy Time: 48.3 sec Fluoroscopy was utilized by Dr. Guevara during the performance of a lumbar medial branch block. Please refer to the procedure report for complete details.
[2019-01-14 12:44] VITALS: BP 142/94; PULSE 87; RESP 15; O2SAT 98
[2019-01-14] MEDS: Omnipaque 240 MG/ML 50 ML BTL IJ (12:45)
[2019-01-14] MEDS: Bupivacaine 0.5% Pres-Free 10 ML VIAL IJ (12:46)
--- NOTE | 2019-01-14 12:47 | PDOC.PAIN_ITS ---
Pain Clinic Procedure Note Current Active Problems Problem Status Onset Lumbosacral spondylosis without myelopathy Acute Lumbar/Sacral Medial Branch Blocks ESTEFANY NEELY has been referred to the [facility] for lumbar/sacral medial branch blocks. COMMENTS: I reviewed the Pain Clinic note from Ms. Mejia. Patient was interviewed and the medical record reviewed. There were no medical, pharmacologic, radiographic or other structural contraindications to attempting fluoroscopically guided local anesthetic lumbar/sacral medial branch blocks. Risks and expected side effects as well as potential benefit of the procedure were reviewed and voiced concerns addressed. The printed consent form was si gned and witnessed. Standard time-out procedure was performed. Patient was placed in the prone position on the fluoroscopy table and automated blood pressure cuff and pulse oximeter applied. The skin entry points for approaching the anatomic target points of the segmental medial branches of bilateral L3-L5 were identified with anfluoroscopy and marked. Following thorough Chlorhexadine preparation of the skin and draping and 1% lidocaine infiltration of the skin entry points and subcutaneous tissues, a 25 gauge 3.5 spinal needle was placed under fluoroscopic guidance down on to the target point for each respective segmental medial branch.Position was confirmed in A/P, oblique and lateral views with 0.25ml of omnipaque 240. At this point I injected 0.5 cc of 0.5% Bupivacaine at each segmental nerve. Vital signs were stable throughout the procedure and were as recorded in the docflowsheet by the nursing staff. Follow up plans and appointments were discussed and was instructed to keep careful note of how the usual pain was modified by these injections. Specifically was asked to keep a pain diary for the next 24 hours using a numeric pain scale of 0-10 and report these results at the follow-up visit. Post procedure instruction was given as documented in the nursing documentation and having met discharge criteria. Patient was discharged from the Pain [facility]. Based on the medial branches blocked today, if the patient has adequate relief and we are able to proceed to radiofrequency ablation, the treatment should result in the denervation of the bilateral L4-L5 and L5-S1 FACET JOINTS. We would expect to denervate a total of 4 facets during the radiofrequency ablation. COMMENTS:He will call back tomorrow with his 1-4 hour post-procedure pain scores. CC: DANISH Case
== END 2019-01-14 10:51 ==
PROVIDERS: PCP Nurse Practitioner Family; Visit Provider Preventive Medicine Occupational Medicine
DX: M47.817 Spondylosis without myelopathy or radiculopathy, lumbosacral region (principal)
CPT/HCPCS: 64493 ×2; 64494 ×2; 36415; 72100; 85610; Q9967

== ENCOUNTER 2019-01-28 08:45 | Outpatient (CLI) | payer OTHER, SELFPAY ==
[2019-01-28 09:05] VITALS: BP 132/90; PULSE 88; RESP 20; TEMP 36.5; O2SAT 97
[2019-01-28 10:58] VITALS: BP 136/90; PULSE 83; RESP 15; O2SAT 100
--- NOTE | 2019-01-28 10:59 | DI.RAD_ITS ---
SYMPTOMS/DIAGNOSIS: LUMBAR SPONDYLOSIS PAIN CLINIC C-ARM FLUOROSCOPY OF THE LUMBAR SPINE: Fluoroscopy Time: 52.8 sec 18.42 mGy Fluoroscopy was provided for guidance of lumbar spine Pain Clinic injection. Please see procedure note for details.
--- NOTE | 2019-01-28 11:01 | PDOC.PAIN_ITS ---
Pain Clinic Procedure Note Current Active Problems Problem Status Onset Lumbosacral spondylosis without myelopathy Acute Lumbar/Sacral Medial Branch Blocks #2 ESTEFANY NEELY has been referred to the [facility] for lumbar/sacral medial branch blocks. COMMENTS: Great relief with the last LMBB at bilateral L3-L5DR Patient was interviewed and the medical record reviewed. There were no medical, pharmacologic, radiographic or other structural contraindications to attempting fluoroscopically guided local anesthetic lumbar/sacral medial branch blocks. Risks and expected side effects as well as potential benefit of the procedure were reviewed and voiced concerns addressed. The printed consent form was signed and witnessed. Standard time-out procedure was performed. Patient was placed in the prone position on the fluoroscopy table and automated blood pressure cuff and pulse oximeter applied. The skin entry points for approaching the anatomic target points of the segmental medial branches of bilateral L3-L5DR were identified with anfluoroscopy and marked. Following th orough Chlorhexadine preparation of the skin and draping and 1% lidocaine infiltration of the skin entry points and subcutaneous tissues, a 22 gauge spinal needle was placed under fluoroscopic guidance down on to the target point for each respective segmental medial branch.Position was confirmed in A/P, oblique and lateral views with 0.25ml of omnipaque 240. At this point I injected 0.5cc of 2% Lidocaine. Vital signs were stable throughout the procedure and were as recorded in the docflowsheet by the nursing staff. Follow up plans and appointments were discussed and was instructed to keep c areful note of how the usual pain was modified by these injections. Specifically was asked to keep a pain diary for the next 24 hours using a numeric pain scale of 0-10 and report these results at the follow-up visit. Post procedure instruction was given as documented in the nursing documentation and having met discharge criteria. Patient was discharged from the [facility]. Based on the medial branches blocked today, if the patient has adequate relief and we are able to proceed to radiofrequency ablation, the treatment should result in the denervation of the bilateral L4-L5 and L5-S1 FACET JOINTS. We would expect to denervate a total of 4 facets during the radiofrequency ablation. COMMENTS: He will call back with his 1-4 hour post-procedure pain scores. CC: DANISH Case
[2019-01-28] MEDS: Omnipaque 240 MG/ML 50 ML BTL IJ (11:10)
[2019-01-28] MEDS: Lidocaine 2% Pres-Free 5 ML VIAL IJ (11:11)
== END 2019-01-28 09:05 ==
PROVIDERS: PCP Nurse Practitioner Family; Visit Provider Preventive Medicine Occupational Medicine
DX: M47.817 Spondylosis without myelopathy or radiculopathy, lumbosacral region (principal)
CPT/HCPCS: 64493 ×2; 64494 ×2; 36415; 72100; 85610; Q9967

== ENCOUNTER 2019-01-29 08:37 | Outpatient (CLI) | payer OTHER, SELFPAY ==
--- NOTE | 2019-01-29 06:00 | DI.RAD_ITS ---
SYMPTOM/DIAGNOSIS: LUMBAR SPONDYLOSIS C-ARM: Fluoroscopy Time: 67.5 seconds C-arm fluoroscopy was utilized by Dr. Jimenez during reported bilateral L 3 through L 5 RF ablation. Hard copies show needle placement adjacent to the pedicles of what appear to be L 4, L 5 and S 1 bilaterally.
[2019-01-29 08:43] VITALS: BP 112/80; PULSE 79; RESP 20; TEMP 36.5; O2SAT 95
[2019-01-29] MEDS: Midazolam 2 MG/2 ML VIAL IVP (09:54)
[2019-01-29] MEDS: fentaNYL 100 MCG/2 ML VIAL IVP ×2 (09:56→10:00)
[2019-01-29] MEDS: Lactated Ringers 1,000 ML 80 ML IV (09:56)
[2019-01-29 10:30] VITALS: BP 126/78; PULSE 76; RESP 14; O2SAT 97
[2019-01-29] MEDS: Lidocaine 1% Pres-Free 30 ML VIAL IJ (10:38)
--- NOTE | 2019-01-29 10:42 | PDOC.PAIN ---
Pain Clinic Procedure Note Current Active Problems Problem Status Onset Lumbosacral spondylosis without myelopathy Acute LUMBAR/SACRAL MEDIAL BRANCH RADIOFREQUENCY COOLED ESTEFANY NEELY has been referred to the [facility] for radiofrequency treatment of chronic axial back pain. ESTEFANY has had long standing back pain thought to be facet joint generated and which has been refractory to other therapies. Local anesthetic medial branch blocks or intra-articular facet joint injections resulted in ESTEFANY reporting reduction of the usual axial component of pain for at least the duration of the local anesthetic effect. COMMENTS: The patient had 2 medial branch blocks which gave him good relief but not 100% the last one was approximately 70%. Patient was interviewed and the medical record reviewed. There were no medical, pharmacologic, radiographic or other structural contraindications to attempting fluoroscopically guided radiofrequency treatment. Risks and expected side effects as well as potential benefit of the procedure were reviewed and voiced concerns addressed. The printed consent form was signed and witnessed. Standard time-out procedure was performed. Patient was placed in the prone position on the fluoroscopy table and automated blood pressure cuff and pulse oximeter applied. The skin entry points for approaching the anatomic target points of the segmental medial branches of {bilateral: L3, 4, 5} were identified with fluoroscopy and marked. Following thorough Chlorhexadine preparation of the skin and draping and 1% lidocaine infiltration of the skin entry points and subcutaneous tissues, a single 17 guage 4 cm 10mm active tip radiofrequency cannula was placed under fluoroscopic guidance along or across the anatomic course of each respective segmental medial branch. Each placement was stimulated at 50Hz and les then 0.5V for medial branch sensory localization and the at 2Hz and up to 3 times the sensory voltage without any evidence of distal myotomal stimulation. 1cc of 1% ;idocaine was injected at each site. At each placement a continuous mode radiofrequency treatment was done at 60 degrees for 150 seconds. This radiofrequency treatment should result in the denervation of the { bilateral L4-5, L5-S1 FACET JOINTS}.~ A total of {4} facets were expected to be denervated from today's treatment. Vital signs were stable throughout the procedure and were as recorded in the docflowsheet by the nursing staff. If given, dosages of intravenous drugs for anxiolysis and analgesia were documented in the Medication Administration Record (MAR). Follow up plans and appointments were discussed. Post procedure instruction was given as documented in the nursing documentation and having met discharge criteria, ESTEFANY was discharged from the Pain Management Center. COMMENTS: Versed 1 mg. Fentanyl 100 mcg given. He will follow-up as needed. I reviewed the patient's MRI with him because he asked me what to do if this does not work. He does have both Modic 1 and Modic 2 changes at the L4?5 and L5-S1 respectively. There is also some foraminal narrowing at multiple levels. I suggested if he is having radicular symptoms we could do an epidural steroid injection. I also suggested he might be a candidate for basivertebral nerve ablation. CC: DANISH Case
== END 2019-01-29 08:57 ==
PROVIDERS: PCP Nurse Practitioner Family; Visit Provider Anesthesiology Pain Medicine
DX: M47.817 Spondylosis without myelopathy or radiculopathy, lumbosacral region (principal); G89.29 Other chronic pain
CPT/HCPCS: 64635 ×2; 64636 ×2; 72100; J2250; J3010

== ENCOUNTER 2019-02-07 06:10 | Outpatient (CLI) | payer OTHER, SELFPAY ==
[2019-02-07 07:43] LABS: INR 1.4 (0.9-1.1); Prothrombin Time 14.5 sec (9.3-11.0)
== END 2019-02-07 06:30 ==
PROVIDERS: Nurse Practitioner Family; PCP Nurse Practitioner Family; Visit Provider Nurse Practitioner Family
DX: Z79.01 Long term (current) use of anticoagulants (principal); I48.0 Paroxysmal atrial fibrillation
CPT/HCPCS: 36415; 85610

== ENCOUNTER 2019-02-14 02:02 | Outpatient (CLI) | payer OTHER, SELFPAY ==
[2019-02-14 09:15] LABS: INR 1.6 (0.9-1.1); Prothrombin Time 16.1 sec (9.3-11.0)
== END 2019-02-14 02:22 ==
PROVIDERS: PCP Nurse Practitioner Family; Visit Provider Nurse Practitioner Family
DX: I48.91 Unspecified atrial fibrillation (principal); Z79.01 Long term (current) use of anticoagulants
CPT/HCPCS: 36415; 85610

== ENCOUNTER 2019-02-19 00:45 | Outpatient (CLI) | payer OTHER, SELFPAY ==
--- NOTE | 2019-02-19 13:15 | DI.COMBO_ITS ---
SYMPTOMS/DIAGNOSIS: RIGHT BREAST MASS, N63.10, OUTER SIDE X 2 MONTHS MAMMOGRAM AND RIGHT BREAST ULTRASOUND: No priors for comparison. There is bilateral breast tissue in the retroareolar region, right greater than left. The findings are most consistent with gynecomastia bilaterally. No solid mass or abnormal calcifications are seen. The skin and axilla are unremarkable. A right breast ultrasound was performed. Breast tissue is seen in the retroareolar region. No suspicious cystic or solid masses are present. IMPRESSION: Findings consistent with bilateral gynecomastia, right greater than left. No findings to suggest malignancy. Category 2, breast density B. The findings were discussed with the patient on the date of the examination. SA ASSESSMENT OF FINDINGS: Negative with benign findings. Category 2. Patient will receive a letter notifying them of these results. BI-RADS category B. There are scattered areas of fibroglandular density.
== END 2019-02-19 01:05 ==
PROVIDERS: PCP Nurse Practitioner Family; Visit Provider Emergency Medicine
DX: N63.11 Unspecified lump in the right breast, upper outer quadrant (principal); N62 Hypertrophy of breast
CPT/HCPCS: 76642; 77062; 77066; G0279

== ENCOUNTER 2019-02-21 02:56 | Outpatient (CLI) | payer OTHER, SELFPAY ==
[2019-02-21 07:42] LABS: Prothrombin Time 20.3 sec (9.3-11.0)
== END 2019-02-21 03:16 ==
PROVIDERS: PCP Nurse Practitioner Family; Visit Provider Nurse Practitioner Family
DX: I48.91 Unspecified atrial fibrillation (principal); Z79.01 Long term (current) use of anticoagulants
CPT/HCPCS: 36415; 85610

== ENCOUNTER 2019-02-28 02:35 | Outpatient (CLI) | payer OTHER, SELFPAY ==
[2019-02-28 08:19] LABS: INR 2.3 (0.9-1.1); Prothrombin Time 23.4 sec (9.3-11.0)
== END 2019-02-28 02:55 ==
PROVIDERS: PCP Nurse Practitioner Family; Visit Provider Nurse Practitioner Family
DX: I48.91 Unspecified atrial fibrillation (principal); Z79.01 Long term (current) use of anticoagulants
CPT/HCPCS: 36415; 85610

== ENCOUNTER 2019-04-15 11:26 | Outpatient (CLI) | payer OTHER, SELFPAY ==
[2019-04-15 11:54] VITALS: BP 122/81; PULSE 83; RESP 18; TEMP 36.9; O2SAT 98
[2019-04-15 12:01] LABS: Prothrombin Time 10.3 sec (9.3-11.0)
--- NOTE | 2019-04-15 13:18 | DI.RAD_ITS ---
SYMPTOMS/DIAGNOSIS: LUMBAR RADICULOPATHY, LUMBAR EPIDURAL STEROID INJECTION PAIN CLINIC: Fluoroscopy Time: 17.9s Fluoroscopy was utilized by Dr. Guevara during the performance of a lumbar epidural steroid injection. Please refer to the procedure report for complete details.
--- NOTE | 2019-04-15 13:22 | PDOC.PAIN ---
Pain Clinic Procedure Note Current Active Problems Problem Status Onset Lumbar radicular syndrome Lumbar Epidural Steroid Injection Procedure Note COMMENTS: He came off his Coumadin for this procedure. His INR today was 1.0. I did review Ms. Mejia's note from 03/10/19. ESTEFANY NEELY has been referred to the [facility] for lumbar epidural steroid injection. The patient was greeted by the nurse who verified patients name and . Patient was then taken to the fluoroscopy suite. The patient was interviewed and the medial record reviewed. There were no medical, pharmacologic, radiographic, or other structural contraindications to attempting fluoroscopically guided lumbar epidural steroid injection. Risks and expected side effects as well as potential benefits of the procedure were reviewed and voiced concerns expressed. The patient consent form was signed and witnessed. Standard patient time-out procedure was performed. The patient was placed in the prone position on the fluoroscopy table and automated blood pressure cuff and pulse oximeter applied. The skin entry point for entering/approaching the epidural space at L5-S1 and marked. Following thorough chlorhexadine preparation of the skin and draping and 1% lidocaine infiltration of the skin entry point and subcutaneous tissues, a 18 gauge Touhy needle was placed under fluoroscopic guidance and with loss of resistance technique into the epidural space. Needle tip placement and depth were aided and confirmed by fluoroscopy. There was no paresthesia or return of blood or CSF through the needle. 1 cc's of Omnipaque 240 was injected with clear epidural spread confirmed with fluoroscopy. 80mg depomedrol was injected. There was not any unusual discomfort expressed by ESTEFANY NEELY. Patient's vital signs were stable throughout the procedure and were as recorded in nursing records. Follow up plans and appointments were discussed with patient. Post procedure instruction was given as documented in nursing records and having met discharge criteria and was discharged from the [facility]. COMMENTS: If this procedure is helpful, it can be completed up to 3 times per 12 months.
[2019-04-15 13:30] VITALS: BP 153/86; PULSE 87; RESP 17; O2SAT 96
[2019-04-15] MEDS: methylPREDNISolone ACETATE 40 MG/ML VIAL IJ (13:32)
[2019-04-15] MEDS: Omnipaque 240 MG/ML 50 ML BTL IJ (13:32)
== END 2019-04-15 11:46 ==
PROVIDERS: PCP Nurse Practitioner Family; Visit Provider Preventive Medicine Occupational Medicine
DX: M54.16 Radiculopathy, lumbar region (principal)
CPT/HCPCS: 62323; 36415; 72100; 85610; J1030; Q9967

== ENCOUNTER 2019-04-21 01:39 | Outpatient (CLI) | payer OTHER, SELFPAY ==
[2019-04-21 08:00] LABS: Hemoglobin A1C 5.3 % (4.5-6.2)
[2019-04-21 08:34] LABS: ALT 27 U/L (12-78); AST 11 U/L (15-37); Alkaline Phosphatase 89 U/L (46-116); BUN 16 mg/dL (7-18); Bilirubin, Total 0.3 mg/dL (0.2-1.0); CREATININE 1.01 mg/dL (0.70-1.30); Calcium 8.5 mg/dL (8.5-10.1); Calculated LDL 50 mg/dL; Chloride 102 mmol/L (98-107); Cholesterol 114 mg/dL (50-200); Glucose 102 mg/dL (70-100); HDL Cholesterol 52 mg/dL (40-60); Potassium 3.8 mmol/L (3.5-5.1); Sodium 140 mmol/L (136-145); TSH 1.53 uIU/mL (0.36-3.74); Total Protein 6.8 g/dL (6.4-8.2); Triglyceride 63 mg/dL (30-150)
[2019-04-21 08:50] LABS: FREE T4 0.94 ng/dL (0.76-1.46)
[2019-04-21 16:20] LABS: Estradiol 44 pg/ml (0-40)
[2019-04-22 13:44] LABS: Beta-HCG, Quant, Tumor Marker <0.6 IU/L (<1.4)
[2019-04-23 16:52] LABS: Testosterone, Free 12.5 ng/dL (4.06-15.6); Testosterone, Total 358 ng/dL (240-950)
== END 2019-04-21 01:59 ==
PROVIDERS: PCP Nurse Practitioner Family; Visit Provider Nurse Practitioner Family
DX: E78.5 Hyperlipidemia, unspecified (principal); N62 Hypertrophy of breast; G47.33 Obstructive sleep apnea (adult) (pediatric)
CPT/HCPCS: 36415; 80053; 80061; 83721; 84402; 84403; 82670; 83002; 83036; 84439; 84443; 84702

== ENCOUNTER 2019-04-24 02:11 | Outpatient (CLI) | payer OTHER, SELFPAY ==
[2019-04-24 08:26] LABS: INR 2.7 (0.9-1.1)
== END 2019-04-24 02:31 ==
PROVIDERS: PCP Nurse Practitioner Family; Visit Provider Nurse Practitioner Family
DX: I48.91 Unspecified atrial fibrillation (principal); Z79.01 Long term (current) use of anticoagulants
CPT/HCPCS: 36415; 85610

== ENCOUNTER 2019-04-25 09:36 | Outpatient (CLI) | payer OTHER, SELFPAY | END 2019-04-25 09:56 | PROVIDERS: PCP Nurse Practitioner Family; Visit Provider Internal Medicine Cardiovascular Disease | DX: I48.0 Paroxysmal atrial fibrillation (principal); I10 Essential (primary) hypertension; E78.5 Hyperlipidemia, unspecified | CPT/HCPCS: 93005; 93010 ==

== ENCOUNTER 2019-05-09 03:36 | Outpatient (CLI) | payer OTHER, SELFPAY ==
[2019-05-09 07:58] LABS: INR 2.6 (0.9-1.1); Prothrombin Time 26.1 sec (9.3-11.0)
== END 2019-05-09 03:56 ==
PROVIDERS: PCP Nurse Practitioner Family; Visit Provider Nurse Practitioner Family
DX: I48.91 Unspecified atrial fibrillation (principal); Z79.01 Long term (current) use of anticoagulants
CPT/HCPCS: 36415; 85610

== ENCOUNTER 2019-05-28 10:52 | Emergency (ER) | payer OTHER, SELFPAY ==
[2019-05-28 10:55] VITALS: BP 128/93; PULSE 93; RESP 16; TEMP 36.9; O2SAT 97
--- NOTE | 2019-05-28 11:35 | W.ED.GENAD ---
Discharge Plan Disposition Patient Disposition: HOME Condition: Good Discharge Details Chief Complaint: Laceration Clinical Impression: Laceration Primary Care Provider: Kena Rebollar ED Provider: Sariah Aldana Home Meds and New Rx's Prescriptions: Continued varicella-zoster gE-AS01B (PF) 50 mcg/0.5 mL suspension for reconstitution 0.5 ml IM ONCE Qty: 1 RF: 0 acetaminophen 500 mg capsule 1,500 mg PO QID PRNRF: 0 gabapentin 300 mg capsule 300 mg PO DIRECTED 30 Days Qty: 102 RF: 0 diclofenac sodium 1 % gel 4 gm TP QID PRN (Reason: low back pain) 6 Days Qty: 100 RF: 11 diltiazem HCl 120 mg capsule,extended release 24hr 240 mg PO DAILY Qty: 180 RF: 4 atorvastatin [Lipitor] 40 mg tablet 40 mg PO DAILY Qty: 90 RF: 4 warfarin [Coumadin] 5 mg tablet See Rx Instructions PO QPM Qty: 180 RF: 4 Discharge Instructions Instructions: Laceration (ED) Additional Instructions: Leave initial dressing in place for 1 to 2 days then removed gently Wash area with soap and water once or twice daily, pat dry completely. Apply topical anabolic ointment to the wound. Keep dressing and please change daily. Observe for any signs of infection, redness, swelling, drainage or discharge. Observe for any sign of numbness, tingling or weakness. Suture removal in 10 to 14 days. Return for any worsening or concerns sooner if needed Medical Decision Making Patient presents with laceration to his right second digit. Patient sustained laceration on a filing cabinet at work. Patient presents with mild bleeding from the site. Patient is currently taking Coumadin. Recent INR 2.7 due for new INR next week. Denies any concerns or needing new INR drawn today. Patient's wound managed and cleaned appropriately. 8 sutures placed. Wound well approximated. No sign of complication. Distal sensation intact. Flexion-extension intact. Wound care management discussed. Patient agrees with plan of care HPI General Date/Time Provider Initiated Documentation: 05/28/19 11:01. HPI Narrative: Patient presents for laceration to right second digit. Patient reports he lacerated his finger on a cabinet. Patient is on a blood thinner. Patient lacerated the second digit fat pad. Patient denies numbness tingling or weakness. No other sites of pain or concerns. Tetanus up-to-date. Related Data Home Medications Medication Instructions Recorded Confirmed diltiazem HCl 120 mg 240 mg PO DAILY #180 cap 11/21/18 05/28/19 capsule,extended release 24 hr acetaminophen 500 mg capsule 1,500 mg PO QID PRN cap 12/04/18 05/28/19 atorvastatin 40 mg tablet 40 mg PO DAILY #90 tab-cap 12/25/18 05/28/19 varicella-zoster gE-AS01B (PF) 50 0.5 ml IM ONCE #1 each 04/18/19 05/28/19 mcg/0.5 mL IM susp, kit warfarin 5 mg tablet See Rx Instructions PO QPM #180 tab 04/25/19 05/28/19 diclofenac sodium 1 % topical gel 4 gm TP QID PRN 6 Days #100 gm 05/21/19 05/28/19 gabapentin 300 mg capsule 300 mg PO DIRECTED 30 Days #102 05/21/19 05/28/19 cap Previous Rx's Medication Instructions Recorded diltiazem HCl 120 mg 240 mg PO DAILY #180 cap 11/21/18 capsule,extended release 24 hr atorvastatin 40 mg tablet 40 mg PO DAILY #90 tab-cap 12/25/18 varicella-zoster gE-AS01B (PF) 50 0.5 ml IM ONCE #1 each 04/18/19 mcg/0.5 mL IM susp, kit warfarin 5 mg tablet See Rx Instructions PO QPM #180 tab 04/25/19 diclofenac sodium 1 % topical gel 4 gm TP QID PRN 6 Days #100 gm 05/21/19 gabapentin 300 mg capsule 300 mg PO DIRECTED 30 Days #102 05/21/19 cap Allergies Allergy/AdvReac Type Severity Reaction Status Date / Time hydrocodone AdvReac Mild Headache, Unverified 05/28/19 10:59 Vomiting General Stated Complaint: Laceration NAKITA: 4 Review of Systems Review of Systems CONSTITUTIONAL: The patient denies fevers, chills. EYES: Denies vision changes, blurry vision, or eye pain. ENT: Denies hearing changes, tinnitus, vertigo, sore throat. CARDIAC: Denies chest pain, SOB. RESPIRATORY: Denies cough, sputum. Denies difficulty breathing. GASTROINTESTINAL: Denies abdominal pain, changes in bowel, vomiting or nausea. GENITOURINARY: Denies dysuria, or frequency of urination. MUSCULOSKELETAL: Denies Joint pain, gait changes. NEUROLOGIC: Denies headaches, Denies focal weakness. Denies numbness. INTEGUMENT: Denies rashes. Laceration PSYCHIATRIC: Denies behavior changes. Denies anxiety or depression. ENDOCRINOLOGY: Denies fatigue. PSYCHIATRY: Denies depression, agitation or anxiety All systems reviewed & are unremarkable except as noted in HPI and below PFSH Medical History Chewing tobacco use (Inactive 04/12/18) Chronic anticoagulation (Chronic) Warfarin CVA (cerebral vascular accident) (Resolved 11/20/16) Diastasis recti (Acute) Essential hypertension (Chronic) Generalized anxiety disorder (Chronic) Hyperlipidemia (Chronic) Irritable bowel syndrome (Chronic) Lumbosacral spondylosis without myelopathy (Chronic) Meralgia paresthetica of right side (Chronic) MARY (obstructive sleep apnea) (Chronic) Original PSG 01/13/17; CPAP Paroxysmal atrial fibrillation (Chronic) Pulmonary vein isolation in January 2017 at [facility] Sensorineural hearing loss (SNHL) of left ear with unrestricted hearing of right ear (Chronic 04/12/18) Umbilical hernia (Inactive) Surgical History H/O vasectomy (Acute 03/18/10) S/P ablation of atrial fibrillation (Acute 02/05/17) Ablation and pulmonary vein isolation S/P colonoscopy (Acute 05/16/18) S/P left inguinal hernia repair (Acute) S/P right knee arthroscopy (Acute ~1988) S/P shoulder surgery (Acute 08/26/08) Right Family History Mother Presence of permanent cardiac pacemaker Atrial fibrillation Heart disease Type 2 diabetes mellitus Father Hypertension Sister Type 2 diabetes mellitus Son No problems noted. Son No problems noted. Paternal Grandmother , at 84 of dementia Dementia Paternal Grandfather , At 72 No problems noted. Maternal Grandmother No problems noted. Maternal Grandfather No problems noted. Paternal Uncle Colon cancer Paternal Aunt Colon cancer Social History Smoking/Tobacco Use Status: Current every day Tobacco Type: smokeless tobacco Quit status: considering quitting Second Hand Exposure: Yes Counseling given: patient declined Alcohol Intake: never Drug use: Never Substance use type: does not use Household members: spouse Housing: house Communication Needs: None current occupation: [employer] Pets and animals: Yes Pets and animals: cat(s) and dog(s) Sexually active: Yes Do you think of yourself as: straight/heterosexual Current gender identity: male What is your relationship status?: How often do you talk on the phone with friends or family?: three or more times per week How often do you get together with friends or relatives?: three or more times per week How often do you attend religion or congregation services?: decline to answer Do you belong to any clubs or organized social groups?: no Panel score (0-1 are the most socially isolated patients): 2 What type of physical activity do you participate in: none Anna/Episcopal: None Special anna needs: No Seatbelt use: sometimes Helmet use: No Drive intox or ride w/intox driver's license reviewing officer: No Do you feel safe in your relationship?: Yes Exam Narrative Exam Narrative: CONST: Healthy appearing patient, in no acute distress. Well hydrated. Alert and alert. HENMT: Head nomocephalic, normal to inspection. Atraumatic. Hearing grossly normal. EYES: General normal appearance. Alignment normal. Eyelids normal. Conjunctiva normal. NECK: Normal visual inspection. FROM. Trachea midline. No Midline tenderness. CHEST: Normal insepection of the chest. RESP: Normal respiratory effort. Speaking full sentences. No cough. No audible wheezing. No retractions. CARDIO: No JVD. MUSCULOSKELETAL: Normal Gait. FROM of all extremities. SKIN: Normal. Dry. No rashes. Flap type laceration to the second digit fat pad on the right hand. Mild bleeding controlled with pressure. Sensation intact distally. Flexion extension intact. NEURO: Alert and awake. Speech clear. PSYCH: Normal affect. Cooperative. Course Vital Signs Temperature 36.9 C 05/28/19 10:55 Pulse 93 H 05/28/19 10:55 Respiratory Rate 16 05/28/19 10:55 Blood Pressure 128/93 H 05/28/19 10:55 Pulse Oximetry 97 05/28/19 10:55 Temperature 36.9 C 05/28/19 10:55 Temperature Source Skin 05/28/19 10:55 Pulse 93 H 05/28/19 10:55 Respiratory Rate 16 05/28/19 10:55 Respiratory Effort Non-Labored 05/28/19 11:05 Blood Pressure 128/93 H 05/28/19 10:55 Blood Pressure Position Sitting 05/28/19 10:55 Pulse Oximetry 97 05/28/19 10:55 Oxygen Delivery Method Room Air 05/28/19 10:55 Oxygen Flow Rate 0 05/28/19 10:55 Pain Level 0 05/28/19 11:03 Procedures Laceration Laceration 1: Site: hand (Fat pad laceration, 2 cm) Side (If applicable): right Size (cm): 2.0 Description: flap Depth: simple, single layer Local Anesthetic: Bupivicaine 0.5% Amount of anesthesia used (mL): 5 Pre-repair: wound explored Skin layer closed with: other (Prolene) Size (cm): 4-0 Number of sutures: 8 Technique: simple, interrupted
[2019-05-28 12:35] VITALS: BP 128/93; PULSE 93; RESP 16; TEMP 36.9; O2SAT 97
== END 2019-05-28 12:36 | disposition home or self-care (01) ==
PROVIDERS: Emergency Provider Physician Assistant; PCP Nurse Practitioner Family
DX: S61.210A Laceration without foreign body of right index finger without damage to nail, initial encounter (principal); W45.8XXA Other foreign body or object entering through skin, initial encounter; I10 Essential (primary) hypertension; Z79.01 Long term (current) use of anticoagulants
CPT/HCPCS: 12001

== ENCOUNTER 2019-06-13 02:32 | Outpatient (CLI) | payer OTHER, SELFPAY ==
[2019-06-13 07:48] LABS: INR 3.1 (0.9-1.1); Prothrombin Time 30.3 sec (9.3-11.0)
== END 2019-06-13 02:52 ==
PROVIDERS: PCP Nurse Practitioner Family; Visit Provider Nurse Practitioner Family
DX: I48.91 Unspecified atrial fibrillation (principal); Z79.01 Long term (current) use of anticoagulants
CPT/HCPCS: 36415; 85610

== ENCOUNTER 2019-06-25 21:14 | Emergency (ER) | payer OTHER, SELFPAY ==
[2019-06-25] VITALS (21 sets, daily range): BP systolic 112–140; BP diastolic 72–102; PULSE 88–100; RESP 8–24; TEMP 36.6; O2SAT 94–99
--- NOTE | 2019-06-25 21:28 | W.ED.GENAD ---
Discharge Plan Disposition Patient Disposition: HOME Condition: Good Discharge Details Chief Complaint: Palpitatns Clinical Impression: Palpitations, Chest pain Primary Care Provider: Kena Rebollar ED Provider: Campbell Owen [place] Meds and New Rx's Prescriptions: Continued acetaminophen 500 mg capsule 1,000 mg PO QID PRNRF: 0 diltiazem HCl 120 mg capsule,extended release 24hr 240 mg PO DAILY Qty: 180 RF: 4 atorvastatin [Lipitor] 40 mg tablet 40 mg PO DAILY Qty: 90 RF: 4 warfarin [Coumadin] 5 mg tablet See Rx Instructions PO QPM Qty: 180 RF: 4 Discharge Instructions Additional Instructions: Continue current medications. Your INR tonight was 2.8. Other laboratory studies, EKG, chest x-ray were fine. Recommend follow-up with your business analyst project manager. Hopefully, this was a one-time event. Return to ED if you develop persistent rapid heart rate, chest pain, shortness of breath, syncope. Referrals: Felipa Munoz MD [MD CONSULTING PHYSICIAN] - Discharge Data Discharge Date/Time-TO BE ENTERED AT DEPARTURE: 06/26/19 01:15 Medical Decision Making Patient presents with what likely was episode of paroxysmal A. fib. He had near syncope and had chest discomfort. EKG and monitor currently shows sinus rhythm. There are no ST changes. His exam is normal. He is neurologically intact. IV established and laboratory studies obtained. Chest x-ray ordered. Patient has remained asymptomatic here. Laboratory studies show a normal CBC, normal chemistries and kidney function, negative initial troponin. He is therapeutic on his Coumadin at 2.8. Chest x-ray with no acute process. Per preliminary radiology read there is fullness to the superior mediastinum but this does not appear to be significantly different from previous chest x-rays. While patient has history of atrial fibrillation he does not have known coronary disease. Because of the chest pain associated with the event he was held for 3 hours and repeat EKG and troponin done. Troponin remained negative. EKG remains unchanged. He has a heart score of 2 and can be safely discharged to follow-up with his business analyst project manager as outpatient. Continue current medications as before. Return to ED for prolonged palpitations, chest pain, shortness of breath, syncope, other concerns or problems. Medical Records Medical records reviewed: Yes I reviewed the patient's medical records. Lab Data Lab results reviewed: Yes I reviewed the patient's lab results. ECG Data Attestation: I personally reviewed and interpreted this ECG (s) as follows: Prior ECG tracings: available for review Interpretation: Sinus rhythm at 94. Normal axis and intervals. Normal ST segments. Repeat EKG continues to be sinus rhythm at 84. Normal axis and intervals. Normal ST segments. HPI General Mode of arrival: ambulatory. Date/Time Provider Initiated Documentation: 06/25/19 21:28. Limitations to Documentation: no limitations. Information obtained by: patient, family, RN notes reviewed and old records reviewed. HPI Narrative: Patient presents to ED with complaint of episode of palpitations, near syncope, chest pain at home this evening. Patient has a prior history of A. fib. He had an ablation about 2 years ago and has had no issues until tonight. His reports that when she took his pulse it was markedly elevated and irregular. He describes ringing in the ears, lightheadedness, graying of vision, chest discomfort, nausea. He did not actually lose consciousness. Symptoms resolved after a few minutes. He does have a prior history of CVA. He is on diltiazem and warfarin despite having the ablation 2 years ago. He is anxious about the event and presents for evaluation. Related Data Home Medications Medication Instructions Recorded Confirmed diltiazem HCl 120 mg 240 mg PO DAILY #180 cap 11/21/18 06/26/19 capsule,extended release 24 hr acetaminophen 500 mg capsule 1,000 mg PO QID PRN cap 12/04/18 06/19/19 atorvastatin 40 mg tablet 40 mg PO DAILY #90 tab-cap 12/25/18 06/26/19 warfarin 5 mg tablet See Rx Instructions PO QPM #180 tab 04/25/19 06/26/19 Previous Rx's Medication Instructions Recorded diltiazem HCl 120 mg 240 mg PO DAILY #180 cap 11/21/18 capsule,extended release 24 hr atorvastatin 40 mg tablet 40 mg PO DAILY #90 tab-cap 12/25/18 warfarin 5 mg tablet See Rx Instructions PO QPM #180 tab 04/25/19 Allergies Allergy/AdvReac Type Severity Reaction Status Date / Time hydrocodone AdvReac Mild Headache, Unverified 06/19/19 14:07 Vomiting General Stated Complaint: Palpitatns NAKITA: 2 Review of Systems Review of Systems Narrative: 06/30 Review of Systems completed and is negative except as stated above in HPI (Systems reviewed: Const, Eyes, ENT, Resp, CV, GI, , MSK, Skin, Neuro) [facility] Medical History Chewing tobacco use (Inactive) Chronic anticoagulation (Chronic) Warfarin CVA (cerebral vascular accident) (Resolved 11/20/16) Essential hypertension (Chronic) Generalized anxiety disorder (Chronic) Hyperlipidemia (Chronic) Irritable bowel syndrome (Chronic) Lumbosacral spondylosis without myelopathy (Chronic) Meralgia paresthetica of right side (Chronic) MARY (obstructive sleep apnea) (Chronic) Original PSG 01/13/17; CPAP Paroxysmal atrial fibrillation (Chronic) Pulmonary vein isolation in January 2017 at [facility] Sensorineural hearing loss (SNHL) of left ear with unrestricted hearing of right ear (Chronic) Umbilical hernia (Inactive) Surgical History H/O vasectomy (Acute 03/18/10) S/P ablation of atrial fibrillation (Acute 02/05/17) Ablation and pulmonary vein isolation S/P colonoscopy (Acute 05/16/18) S/P left inguinal hernia repair (Acute) S/P right knee arthroscopy (Acute ~1988) S/P shoulder surgery (Acute 08/26/08) Right Social History Smoking/Tobacco Use Status: Current every day Tobacco Type: smokeless tobacco Smokeless tobacco user: chewing tobacco Quit status: considering quitting Second Hand Exposure: Yes Counseling given: patient declined Alcohol Intake: never Drug use: Never Substance use type: does not use Household members: spouse Housing: house Communication Needs: None current occupation: [employer] Pets and animals: Yes Pets and animals: cat(s) and dog(s) Sexually active: Yes Do you think of yourself as: straight/heterosexual Current gender identity: male What is your relationship status?: How often do you talk on the phone with friends or family?: three or more times per week How often do you get together with friends or relatives?: three or more times per week How often do you attend yarsanism or gnosticist services?: decline to answer Do you belong to any clubs or organized social groups?: no Panel score (0-1 are the most socially isolated patients): 2 What type of physical activity do you participate in: none Anna/Taoism: None Special anna needs: No Seatbelt use: sometimes Helmet use: No Drive intox or ride w/intox armor reconnaissance vehicle driver: No Do you feel safe in your relationship?: Yes Exam Narrative Exam Narrative: Vitals: Afebrile here. Hypertensive on arrival. Otherwise vital signs and pulse ox normal. Const: WDWN male in NAD. HEENT: NC/AT. Normal facial exam. Eyes: Normal conjunctiva and sclera. Neck: Supple. Trachea midline. Lungs: Normal respiratory effort. Lungs are clear. Cor: RRR without murmur/gallop. Good radial pulses. GI: Soft. NT/ND. No guarding or rebound. Neuro: A+O x 3. CN II - XII grossly in tact. Normal strength, sensation, gait, speech and mental status. Ext: No C/C/E. No calf tenderness. Skin: Warm and dry without rash. Course Vital Signs Vital signs: Vital Signs Temperature 97.9 F 06/25/19 21:21 Pulse 95 H 06/25/19 21:21 Respiratory Rate 16 06/25/19 21:21 Blood Pressure 140/102 H 06/25/19 21:21 Pulse Oximetry 99 06/25/19 21:21 Temperature 97.9 F 06/25/19 21:21 Pulse 95 H 06/25/19 21:21 Respiratory Rate 16 06/25/19 21:21 Blood Pressure 140/102 H 06/25/19 21:21 Blood Pressure Position Supine 06/25/19 21:21 Pulse Oximetry 99 06/25/19 21:21 Oxygen Delivery Method Room Air 06/25/19 21:21 Oxygen Flow Rate 0 06/25/19 21:21 Pain Level 2 06/25/19 21:21
[2019-06-25 21:52] LABS: Abs Immature Grans 0.01 k/cumm (0.0-0.09); Absolute Basophil Count 0.03 k/cumm (0.0-0.2); Absolute Eosinophil Count 0.15 k/cumm (0.0-0.7); Absolute Lymphocyte Count 1.83 k/cumm (1.2-3.4); Absolute Monocyte Count 0.81 k/cumm (0.11-0.7); Basophils % 0.4; Eosinophils % 2.1; HCT 40.8 % (40.0-50.0); HGB 14.3 g/dL (13.5-17.5); Immature Grans % 0.1; Lymphocytes % 25.7; Mean Corpuscular Hemoglobin 32.6 pg (27.0-33.0); Mean Corpuscular Volume 93.2 fL (80-95); Mean Platelet Volume 9.6 fL (8.0-11.0); Monocytes % 11.4; Neutrophils % 60.3; Platelet Count 258 x1000/uL (130-400); RBC 4.38 m/cumm (4.50-6.00); RBC Distribution Width 12.8 % (11.8-14.1); White Blood Cell Count 7.13 k/cumm (4.4-10.8)
[2019-06-25 22:02] LABS: INR 2.8 (0.9-1.1); Prothrombin Time 27.6 sec (9.3-11.0)
--- NOTE | 2019-06-25 22:13 | DI.RAD_ITS ---
EXAM: XR CHEST 2V PA LATERAL INDICATION: chest pain/near syncope. COMPARISON: CHEST FOR PULMONARY EMBOLUS from 03/18/2017 CHEST 2 VIEWS PA,LAT from 04/23/2018 CHEST 2 VIEWS PA,LAT from 04/23/2018 CT ABDOMEN WO from 12/11/2018 TECHNIQUE: 2D digital imaging was performed. FINDINGS: PA and lateral chest shows superior mediastinal widening as noted on previous examinations. Prior est CT of 03/18/2017 shows large fat deposits in superior mediastinum with laterally located venous s tructures including the SVC. No mass was identified at that time. Lungs are clear. No pleural effu prasanth seen. IMPRESSION: No evidence of acute change.
[2019-06-25 22:20] LABS: ALT 21 U/L (16-63); AST 14 U/L (15-37); Albumin 4.2 g/dL (3.4-5.0); Alkaline Phosphatase 67 U/L (46-116); Anion Gap 8.3 mmol/L (3-11); BUN 15 mg/dL (7-18); Bilirubin, Total 0.4 mg/dL (0.2-1.0); CO2 28.7 mmol/L (21.0-32.0); CREATININE 0.99 mg/dL (0.70-1.30); Calcium 8.7 mg/dL (8.5-10.1); Chloride 104 mmol/L (98-107); Glucose 95 mg/dL (70-100); Potassium 3.6 mmol/L (3.5-5.1); Sodium 141 mmol/L (136-145); Total Protein 7.4 g/dL (6.4-8.2)
[2019-06-25 22:35] LABS: Troponin I < 0.05 ng/mL (0.00-0.06)
--- NOTE | 2019-06-25 23:09 | DI.VRAD_ITS ---
PROCEDURE INFORMATION: Exam: XR Chest, 2 Views Exam date and time: 06/25/2019 10:13 PM Clinical history: 48 years old, male; Chest pain; Type not specified TECHNIQUE: Imaging protocol: XR of the chest Views: 2 views. COMPARISON: CR CHEST 2 VIEWS PA,LAT 04/23/2018 10:17 AM FINDINGS: Lungs: Normal pulmonary expansion. Pulmonary vasculature grossly normal. No infiltrates. Pleural space: No pleural effusion. No pneumothorax. Heart/Mediastinum: Heart size normal. Superior mediastinal widening. There is mild aortic ectasia. There is prominence in the right paratracheal region measuring up to 3 cm in thickness which is similar to the configuration on 04/23/2018. This could be vascular in nature. Chronic mediastinal adenopathy or mass lesion could also produce this appearance. The chest CT report from 03/18/2017 describes no adenopathy or mass lesion and no evidence of arterial aneurysm, however the prior CT images are not available for comparison. The previous chest x-ray from 12/25/2016 demonstrates an unchanged similar appearance to today's x-ray, and this was performed before the CT scan. Direct comparison to the previous CT images would be helpful if these can be made available. No tracheal/mediastinal shift. Diaphragm: Mild eventration of the right hemidiaphragm. Bones/joints: No acute osseous abnormalities are identified. IMPRESSION: 1. No definite acute process is evident. No significant change from prior chest radiographs back to 2017. 2. There is fullness in the right paratracheal region in the superior mediastinum. Please see differential considerations above. It does not appear significantly changed back to the oldest available comparison radiographs in 2017. Comparison to the previous chest CT images from 2017 is recommended for further characterization. These images were requested for comparison at 10:05 PM on 06/25/2019. Dictated and Authenticated by: Ed Arias MD. Ordering:FRANNIE Hightower MD
[2019-06-26] VITALS (10 sets, daily range): BP systolic 118–130; BP diastolic 87–95; PULSE 83–91; RESP 12–26; TEMP 36.6; O2SAT 94–97
[2019-06-26 00:50] LABS: Troponin I < 0.05 ng/mL (0.00-0.06)
== END 2019-06-26 01:15 | disposition home or self-care (01) ==
PROVIDERS: Emergency Provider Emergency Medicine; PCP Nurse Practitioner Family
DX: R00.2 Palpitations (principal); R07.9 Chest pain, unspecified; I48.91 Unspecified atrial fibrillation; Z79.01 Long term (current) use of anticoagulants; I10 Essential (primary) hypertension
CPT/HCPCS: 36415; 80053; 93005; 99285; 71046; 83735; 84484; 85025; 85610; 93010

== ENCOUNTER 2019-07-18 00:53 | Outpatient (CLI) | payer OTHER, SELFPAY ==
[2019-07-18 08:16] LABS: INR 3.2 (0.9-1.1)
== END 2019-07-18 01:13 ==
PROVIDERS: PCP Nurse Practitioner Family; Visit Provider Nurse Practitioner Family
DX: I48.91 Unspecified atrial fibrillation (principal); Z79.01 Long term (current) use of anticoagulants
CPT/HCPCS: 36415; 85610

== ENCOUNTER 2019-07-25 01:45 | Outpatient (CLI) | payer OTHER, SELFPAY ==
[2019-07-25 07:44] LABS: INR 2.2 (0.9-1.1); Prothrombin Time 21.8 sec (9.3-11.0)
== END 2019-07-25 02:05 ==
PROVIDERS: PCP Nurse Practitioner Family; Visit Provider Nurse Practitioner Family
DX: I48.91 Unspecified atrial fibrillation (principal); Z79.01 Long term (current) use of anticoagulants
CPT/HCPCS: 36415; 85610

== ENCOUNTER 2019-08-08 01:41 | Outpatient (CLI) | payer OTHER, SELFPAY ==
[2019-08-08 08:10] LABS: Prothrombin Time 43.4 sec (9.3-11.0)
[2019-08-08 08:25] LABS: INR 4.5 (0.9-1.1)
== END 2019-08-08 02:01 ==
PROVIDERS: PCP Nurse Practitioner Family; Visit Provider Nurse Practitioner Family
DX: I48.91 Unspecified atrial fibrillation (principal); Z79.01 Long term (current) use of anticoagulants
CPT/HCPCS: 36415; 85610

== ENCOUNTER 2019-08-11 03:11 | Outpatient (CLI) | payer OTHER, SELFPAY ==
[2019-08-11 08:24] LABS: INR 1.3 (0.9-1.1); Prothrombin Time 12.7 sec (9.3-11.0)
== END 2019-08-11 03:31 ==
PROVIDERS: PCP Nurse Practitioner Family; Visit Provider Nurse Practitioner Family
DX: I48.91 Unspecified atrial fibrillation (principal); Z79.01 Long term (current) use of anticoagulants
CPT/HCPCS: 36415; 85610

== ENCOUNTER 2019-08-13 00:51 | Outpatient (CLI) | payer OTHER, SELFPAY ==
[2019-08-13 08:42] LABS: INR 1.2 (0.9-1.1); Prothrombin Time 12.1 sec (9.3-11.0)
== END 2019-08-13 01:11 ==
PROVIDERS: PCP Nurse Practitioner Family; Visit Provider Nurse Practitioner Family
DX: I48.91 Unspecified atrial fibrillation (principal); Z79.01 Long term (current) use of anticoagulants
CPT/HCPCS: 36415; 85610

== ENCOUNTER 2019-08-18 01:09 | Outpatient (CLI) | payer OTHER, SELFPAY ==
[2019-08-18 08:47] LABS: Prothrombin Time 20.1 sec (9.3-11.0)
== END 2019-08-18 01:29 ==
PROVIDERS: PCP Nurse Practitioner Family; Visit Provider Nurse Practitioner Family
DX: I48.91 Unspecified atrial fibrillation (principal); Z79.01 Long term (current) use of anticoagulants
CPT/HCPCS: 36415; 85610

== ENCOUNTER 2019-08-25 00:16 | Outpatient (CLI) | payer OTHER, SELFPAY ==
[2019-08-25 09:02] LABS: INR 1.9 (0.9-1.1); Prothrombin Time 18.7 sec (9.3-11.0)
== END 2019-08-25 00:36 ==
PROVIDERS: PCP Nurse Practitioner Family; Visit Provider Nurse Practitioner Family
DX: I48.91 Unspecified atrial fibrillation (principal); Z79.01 Long term (current) use of anticoagulants
CPT/HCPCS: 36415; 85610

== ENCOUNTER 2019-09-02 03:03 | Outpatient (CLI) | payer OTHER, SELFPAY ==
[2019-09-02 10:13] LABS: INR 2.5 (0.9-1.1); Prothrombin Time 24.3 sec (9.3-11.0)
== END 2019-09-02 03:23 ==
PROVIDERS: PCP Nurse Practitioner Family; Visit Provider Nurse Practitioner Family
DX: I48.91 Unspecified atrial fibrillation (principal); Z79.01 Long term (current) use of anticoagulants
CPT/HCPCS: 36415; 85610

== ENCOUNTER 2019-09-12 00:27 | Outpatient (CLI) | payer OTHER, SELFPAY ==
[2019-09-12 07:34] LABS: Prothrombin Time 19.4 sec (9.3-11.0)
== END 2019-09-12 00:47 ==
PROVIDERS: PCP Nurse Practitioner Family; Visit Provider Nurse Practitioner Family
DX: I48.91 Unspecified atrial fibrillation (principal); Z79.01 Long term (current) use of anticoagulants
CPT/HCPCS: 36415; 85610

== ENCOUNTER 2019-09-19 03:16 | Outpatient (CLI) | payer OTHER, SELFPAY ==
--- NOTE | 2019-10-09 08:20 | ZIOP_ITS ---
Date of service: 10/09/19 Time of Service: 08:20 ZIO Patch Professor Of Special Education Note: This is a ZIO Patch ordered for the indication of paroxysmal atrial fibrillation. ?The patient was in normal sinus rhythm for the majority of the recording. ?There was one episode of ventricular tachycardia which lasted 5 beats an average rate of 188. ?There were 2 episodes of supraventricular tachycardia the longest lasting 20 beats at a rate of 143. ?There were rare supraventricular ectopic beats as well as rare single ventricular ectopic beats. ?Patient triggered events were associated with supraventricular tachycardia as well as ventricular tachycardia and single ventricular ectopic beats. ?There were no episodes of atrial fibrillation, no pauses greater than 3 seconds and no evidence of high degree heart block.
== END 2019-09-19 03:36 ==
PROVIDERS: PCP Nurse Practitioner Family; Visit Provider Nurse Practitioner Family
DX: I48.0 Paroxysmal atrial fibrillation (principal); I47.2 Ventricular tachycardia; I47.1 Supraventricular tachycardia; I49.3 Ventricular premature depolarization
CPT/HCPCS: 0296T

== ENCOUNTER 2019-09-26 06:11 | Outpatient (CLI) | payer OTHER, SELFPAY ==
[2019-09-26 07:46] LABS: INR 2.6 (0.9-1.1); Prothrombin Time 25.2 sec (9.3-11.0)
== END 2019-09-26 06:31 ==
PROVIDERS: PCP Nurse Practitioner Family; Visit Provider Nurse Practitioner Family
DX: I48.91 Unspecified atrial fibrillation (principal); Z79.01 Long term (current) use of anticoagulants
CPT/HCPCS: 36415; 85610

== ENCOUNTER 2019-12-02 02:15 | Outpatient (CLI) | payer OTHER, SELFPAY ==
[2019-12-02 07:51] LABS: INR 1.8 (0.9-1.1); Prothrombin Time 18.3 sec (9.3-11.0)
== END 2019-12-02 02:35 ==
PROVIDERS: PCP Nurse Practitioner Family; Visit Provider Nurse Practitioner Family
DX: I48.91 Unspecified atrial fibrillation (principal); Z79.01 Long term (current) use of anticoagulants
CPT/HCPCS: 36415; 85610

== ENCOUNTER 2019-12-09 09:29 | Outpatient (CLI) | payer OTHER, SELFPAY ==
[2019-12-09 11:02] LABS: INR 2.8 (0.9-1.1); Prothrombin Time 27.5 sec (9.3-11.0)
== END 2019-12-09 09:49 ==
PROVIDERS: PCP Nurse Practitioner Family; Visit Provider Nurse Practitioner Family
DX: I48.0 Paroxysmal atrial fibrillation (principal); Z79.01 Long term (current) use of anticoagulants
CPT/HCPCS: 36415; 85610

== ENCOUNTER 2019-12-15 11:07 | Outpatient (CLI) | payer OTHER, SELFPAY ==
[2019-12-17 15:25] LABS: SARS-CoV-2 RNA Undetected (Undetected); SARS-CoV-2 Specimen Source Nasopharynx
== END 2019-12-15 11:27 ==
PROVIDERS: PCP Nurse Practitioner Family; Visit Provider Nurse Practitioner Family
DX: Z20.828 Contact with and (suspected) exposure to other viral communicable diseases (principal)
CPT/HCPCS: U0003

== ENCOUNTER 2019-12-25 01:03 | Outpatient (CLI) | payer OTHER, SELFPAY ==
[2019-12-25 15:53] LABS: INR 2.8 (0.9-1.1); Prothrombin Time 27.1 sec (9.3-11.0)
== END 2019-12-25 01:23 ==
PROVIDERS: PCP Nurse Practitioner Family; Visit Provider Nurse Practitioner Family
DX: I48.0 Paroxysmal atrial fibrillation (principal); Z79.01 Long term (current) use of anticoagulants
CPT/HCPCS: 36415; 85610

== ENCOUNTER 2020-01-08 01:54 | Outpatient (CLI) | payer OTHER, SELFPAY ==
[2020-01-08 15:43] LABS: INR 3.2 (0.9-1.1)
== END 2020-01-08 02:14 ==
PROVIDERS: PCP Nurse Practitioner Family; Visit Provider Nurse Practitioner Family
DX: I48.91 Unspecified atrial fibrillation (principal); Z79.01 Long term (current) use of anticoagulants
CPT/HCPCS: 36415; 85610

== ENCOUNTER 2020-01-12 00:26 | Outpatient (CLI) | payer OTHER, SELFPAY ==
--- NOTE | 2020-01-12 06:45 | DI.MRI_ITS ---
EXAM: MR BRAIN WO CLINICAL HISTORY: DIZZINESS/EPISODIC HEADACHE/CVA HX,[id number],[id number] TECHNIQUE: Multiplanar multisequence MRI of the brain was performed. COMPARISON: HEAD WITHOUT CONTRAST from 12/03/2016 FINDINGS: VENTRICLES AND EXTRA AXIAL SPACES: Normal in size and morphology for the patient's age. MIDLINE SHIFT: None. CEREBRAL PARENCHYMA: No focus of restricted diffusion to suggest acute infarct. No space-occupying le prasanth identified. HEMORRHAGE: None. BRAINSTEM/CEREBELLUM: Normal. CALVARIUM: Normal. VISUALIZED PARANASAL SINUSES/MASTOIDS:Mild mucosal thickening in the sphenoid sinuses bilaterally. [place] LACS OF [place]: Normal flow void. PITUITARY GLAND: Unremarkable. OTHER FINDINGS: None. IMPRESSION: No evidence of an acute infarct or intracranial mass. Mild sphenoid sinus disease. DATA REPOSITORY:
== END 2020-01-12 00:46 ==
PROVIDERS: PCP Nurse Practitioner Family; Visit Provider Nurse Practitioner Family
DX: R51 Headache (principal); R42 Dizziness and giddiness; J01.30 Acute sphenoidal sinusitis, unspecified
CPT/HCPCS: 70551

== ENCOUNTER 2020-01-15 01:14 | Outpatient (CLI) | payer OTHER, SELFPAY ==
[2020-01-15 16:02] LABS: Prothrombin Time 29.2 sec (9.3-11.0)
== END 2020-01-15 01:34 ==
PROVIDERS: PCP Nurse Practitioner Family; Visit Provider Nurse Practitioner Family
DX: I48.91 Unspecified atrial fibrillation (principal); Z79.01 Long term (current) use of anticoagulants
CPT/HCPCS: 36415; 85610

== ENCOUNTER 2020-01-22 02:54 | Outpatient (CLI) | payer OTHER, SELFPAY ==
[2020-01-22 14:35] LABS: INR 2.4 (0.9-1.1); Prothrombin Time 23.6 sec (9.3-11.0)
== END 2020-01-22 03:14 ==
PROVIDERS: PCP Nurse Practitioner Family; Visit Provider Nurse Practitioner Family
DX: I48.91 Unspecified atrial fibrillation (principal); Z79.01 Long term (current) use of anticoagulants
CPT/HCPCS: 36415; 85610

== ENCOUNTER 2020-01-29 01:57 | Outpatient (CLI) | payer OTHER, SELFPAY ==
[2020-01-29 16:39] LABS: INR 2.1 (0.9-1.1); Prothrombin Time 20.6 sec (9.3-11.0)
== END 2020-01-29 02:17 ==
PROVIDERS: PCP Nurse Practitioner Family; Visit Provider Nurse Practitioner Family
DX: Z79.01 Long term (current) use of anticoagulants (principal); I48.91 Unspecified atrial fibrillation
CPT/HCPCS: 36415; 85610

== ENCOUNTER 2020-02-13 01:40 | Outpatient (CLI) | payer OTHER, SELFPAY ==
[2020-02-13 15:51] LABS: INR 2.2 (0.9-1.1); Prothrombin Time 21.5 sec (9.3-11.0)
== END 2020-02-13 02:00 ==
PROVIDERS: PCP Nurse Practitioner Family; Visit Provider Nurse Practitioner Family
DX: I48.91 Unspecified atrial fibrillation (principal); Z79.01 Long term (current) use of anticoagulants
CPT/HCPCS: 36415; 85610

== ENCOUNTER 2020-03-12 01:36 | Outpatient (CLI) | payer OTHER, SELFPAY ==
[2020-03-12 15:24] LABS: INR 1.8 (0.9-1.1); Prothrombin Time 17.5 sec (9.3-11.0)
== END 2020-03-12 01:56 ==
PROVIDERS: PCP Nurse Practitioner Family; Visit Provider Nurse Practitioner Family
DX: I48.91 Unspecified atrial fibrillation (principal); Z79.01 Long term (current) use of anticoagulants
CPT/HCPCS: 36415; 85610

== ENCOUNTER 2020-04-13 03:31 | Outpatient (CLI) | payer OTHER, SELFPAY ==
[2020-04-13 15:41] LABS: INR 2.1 (0.9-1.1); Prothrombin Time 20.3 sec (9.3-11.0)
== END 2020-04-13 03:51 ==
PROVIDERS: PCP Nurse Practitioner Family; Visit Provider Nurse Practitioner Family
DX: I48.91 Unspecified atrial fibrillation (principal); Z79.01 Long term (current) use of anticoagulants
CPT/HCPCS: 36415; 85610

== ENCOUNTER 2020-05-14 13:38 | Outpatient (REF) | payer OTHER, SELFPAY ==
[2020-05-14 13:37] LABS: Abs Immature Grans 0.02 10^3/uL (0.0-0.06); Absolute Basophil Count 0.06 10^3/uL (0.0-0.2); Absolute Eosinophil Count 0.24 10^3/uL (0.0-0.7); Absolute Lymphocyte Count 1.55 10^3/uL (1.2-3.4); Absolute Monocyte Count 0.63 10^3/uL (0.1-0.8); Absolute Neutrophil Count 3.76 10^3/uL (1.2-6.7); Eosinophils % 3.8; HCT 46.4 % (40.0-50.0); HGB 16.1 g/dL (13.5-17.5); Immature Grans % 0.3; Lymphocytes % 24.8; MCH 32.8 pg (27.0-33.0); MCHC 34.7 % (32.0-36.0); MCV 94.5 fL (80-95); MPV 10.8 fL (8.0-11.0); Monocytes % 10.1; Nucleated RBC 0 %; Platelet Count 269 10^3/uL (130-400); RBC 4.91 10^6/uL (4.36-5.78); RDW 12.1 % (11.8-14.1); RDW-SD 42.2 fL; WBC 6.26 10^3/uL (4.4-10.8)
[2020-05-14 14:30] LABS: ALT 26 U/L (16-63); AST 12 U/L (15-37); Albumin 4.6 g/dL (3.4-5.0); Alkaline Phosphatase 89 U/L (46-116); Anion Gap 7.7 mmol/L (3-11); BUN 14 mg/dL (7-18); Bilirubin, Total 0.4 mg/dL (0.2-1.0); CO2 26.3 mmol/L (21.0-32.0); CREATININE 0.99 mg/dL (0.70-1.30); Calcium 8.9 mg/dL (8.5-10.1); Calculated LDL 64 mg/dL (<100); Chloride 103 mmol/L (98-107); Cholesterol 132 mg/dL (<200); Glucose 99 mg/dL (74-106); HDL Cholesterol 49 mg/dL (40-60); Potassium 3.8 mmol/L (3.5-5.1); Sodium 137 mmol/L (136-145); Total Protein 7.4 g/dL (6.4-8.2); Triglyceride 95 mg/dL (<150)
== END 2020-05-14 13:58 ==
LOC: LBN 13:38
PROVIDERS: PCP Nurse Practitioner Family; Visit Provider Nurse Practitioner Family
DX: E78.5 Hyperlipidemia, unspecified (principal); I48.0 Paroxysmal atrial fibrillation
CPT/HCPCS: 80053; 80061; 85025

== ENCOUNTER 2020-05-20 03:58 | Outpatient (CLI) | payer OTHER, SELFPAY ==
[2020-05-20 09:25] LABS: INR 1.2 (0.9-1.1); Prothrombin Time 12.3 sec (9.3-11.0)
== END 2020-05-20 04:18 ==
PROVIDERS: PCP Nurse Practitioner Family; Visit Provider Nurse Practitioner Family
DX: I48.91 Unspecified atrial fibrillation (principal); Z79.01 Long term (current) use of anticoagulants
CPT/HCPCS: 36415; 85610

== ENCOUNTER 2020-06-22 11:29 | Emergency (ER) | payer OTHER, SELFPAY ==
[2020-06-22] VITALS (40 sets, daily range): BP systolic 114–170; BP diastolic 64–98; PULSE 71–88; RESP 13–27; TEMP 36.3–36.6; O2SAT 94–99
--- NOTE | 2020-06-22 11:30 | RT.EKG_ITS ---
APPROVED REPORT Exam: Resting ECG Patient Location: E HR:84 bpm ECG Measurements Heart Rate 84 AXIS DE 155 P 57 QRSd 104 QRS 66 QT 367 T 40 QTc 435 Conclusion Sinus rhythm...normal P axis, V-rate 60- 99
--- NOTE | 2020-06-22 11:45 | DI.RAD_ITS ---
EXAM: XR CHEST 2V PA LATERAL CLINICAL HISTORY: Palpitations TECHNIQUE: COMPARISON: CR,XR XR CHEST 2V PA LATERAL from 06/25/2019 FINDINGS: Heart is not enlarged. Lungs are clear. No pleural effusion. Stable variant appearance of superior mediastinal contour, no change from 06/25/2019. IMPRESSION: No evidence of acute process. RADIATION DOSE DELIVERED: Total DLP
[2020-06-22 12:09] LABS: Abs Immature Grans 0.02 10^3/uL (0.0-0.06); Absolute Basophil Count 0.05 10^3/uL (0.0-0.2); Absolute Lymphocyte Count 1.58 10^3/uL (1.2-3.4); Absolute Monocyte Count 0.54 10^3/uL (0.1-0.8); Absolute Neutrophil Count 3.41 10^3/uL (1.2-6.7); Basophils % 0.9; Eosinophils % 1.8; HCT 42.2 % (40.0-50.0); HGB 14.8 g/dL (13.5-17.5); Immature Grans % 0.4; Lymphocytes % 27.7; MCH 32.8 pg (27.0-33.0); MCHC 35.1 % (32.0-36.0); MCV 93.6 fL (80-95); MPV 10.5 fL (8.0-11.0); Monocytes % 9.5; Neutrophils % 59.7; Nucleated RBC 0 %; Platelet Count 240 10^3/uL (130-400); RBC 4.51 10^6/uL (4.36-5.78); RDW-SD 41.2 fL
[2020-06-22 12:22] LABS: INR 1.1 (0.9-1.1); PTT Activated 29.1 sec (21.0-31.4); Prothrombin Time 11.3 sec (9.3-11.0)
[2020-06-22 12:31] LABS: ALT 17 U/L (16-63); AST 12 U/L (15-37); Alkaline Phosphatase 66 U/L (46-116); Anion Gap 7.6 mmol/L (3-11); BUN 16 mg/dL (7-18); Bilirubin, Total 0.5 mg/dL (0.2-1.0); CO2 27.4 mmol/L (21.0-32.0); CREATININE 1.49 mg/dL (0.70-1.30); Calcium 8.3 mg/dL (8.5-10.1); Chloride 103 mmol/L (98-107); Estimated GFR 49.72 (mL/min/1.73m2); Glucose 90 mg/dL (74-106); Magnesium 2.1 mg/dL (1.8-2.4); Potassium 3.8 mmol/L (3.5-5.1); Sodium 138 mmol/L (136-145); TSH (W/Ref FT4) 1.16 uIU/mL (0.36-3.74); Total Protein 7.2 g/dL (6.4-8.2)
[2020-06-22 12:32] LABS: Troponin I < 0.05 ng/mL (<0.06)
--- NOTE | 2020-06-22 13:15 | RT.EKG_ITS ---
APPROVED REPORT Exam: Resting ECG Patient Location: E HR:77 bpm ECG Measurements Heart Rate 77 AXIS AL 184 P 11 QRSd 100 QRS 61 QT 397 T 28 QTc 451 Conclusion Sinus rhythm...normal P axis, V-rate 60- 99
--- NOTE | 2020-06-22 13:24 | W.ED.GENAD ---
Discharge Plan Disposition Patient Disposition: HOME Condition: Stable Discharge Details Clinical Impression: Palpitations Primary Care Provider: Kena Rebollar ED Provider: Simon Espinoza Home Meds and New Rx's Prescriptions: Continued apixaban 5 mg tablet 5 mg PO BID Qty: 180 RF: 4 bupropion HCl [Wellbutrin XL] 300 mg tablet extended release 24 hr 300 mg PO QAM Qty: 90 RF: 4 diltiazem HCl 240 mg capsule,extended release 24hr 240 mg PO DAILY Qty: 90 RF: 4 atorvastatin [Lipitor] 40 mg tablet 40 mg PO DAILY Qty: 90 RF: 4 Discharge Instructions Instructions: Heart Palpitations (ED) Additional Instructions: At this time the work-up in the ER has not revealed any obvious emergent process. You have remained asymptomatic here in the ER while under my care. We have set you up with a Holter monitor to further evaluate any potential arrhythmia or palpitations. Please watch for new or worsening symptoms and return to the ER for any concerns. I would like you to contact your primary care provider and cardiology team later today or tomorrow for prompt outpatient reevaluation. If symptoms persist outpatient stress test, echocardiogram, medication changes may be indicated for further evaluation of your symptoms. Medical Decision Making This is a 49-year-old gentleman with past medical history of atrial fibrillation now status post ablation, chronic anticoagulation, CVA, hypertension, anxiety, hyperlipidemia, presenting to the ER today for what he describes as stronger and more frequent palpitations. The palpitations are associated with a sensation in his chest but denies any pain. That sensation is only present when he has the palpitations. He denies recent illness or trauma. He does admit to intermittent back pain, left arm pain, which feels muscular to him and unrelated to the palpitations. He contacted his primary care provider who recommended coming to the ER for further evaluation. At this time he is currently asymptomatic. Given his age, comorbidities, and HPI, I do believe that obtaining a cardiac work-up with TSH is certainly warranted. Differential includes but not excluded to atrial fibrillation, PVC, anxiety, thyroid disorder, electrolyte abnormality, anemia, other arrhythmia, less likely ACS. Patient already on Eliquis. Work-up reveals white blood cell count of 5.7 hemoglobin 14.8 hematocrit 42.2 platelet count 240. INR 1.1 electrolytes unremarkable, creatinine 1.49 with a GFR of 49.72, this does appear to be below his baseline. We will give a single liter of IV fluid. Calcium 8.2, when comparing previous records it appears as though he has had slightly low calcium in the past. Magnesium 2.1 troponin less than 0.05, TSH 1.16. Chest x-ray unremarkable. Heart rate in the 70s. Blood pressure trending downward now 131/71. Patient remains asymptomatic. Discussed his initial benign work-up. He is willing to be observed in the ER for repeat troponin at the 3-hour luigi. We discussed that if his troponin is unremarkable and he remains asymptomatic I would like to set him up with a 48-hour Holter monitor to further evaluate these palpitations. Patient is agreeable to this. Repeat EKG performed at 1437. Please see official report by Dr. Ruiz. Sinus rhythm, ventricular rate of 77, no STEMI. Repeat troponin remains less than 0.05. Patient observed in the ER for over 3.5, remained on the geometry tutor, no evidence of arrhythmias. Patient remains asymptomatic. 48-hour Holter monitor has been placed. We discussed options. Patient would prefer to be discharged home, I believe this to be reasonable. We discussed the importance of following up with his primary care provider, outpatient stress test and/or echocardiogram may be indicated. Also recommend that he contact his bottomer operator for outpatient reevaluation as well. If he continues to experience palpitations they may want to adjust his medications. He was encouraged to watch for new or worsening symptoms and return immediately to the ER. Medical Records Medical records reviewed: Yes I reviewed the patient's medical records. Lab Data Lab results reviewed: Yes I reviewed the patient's lab results. Lab results narrative: Laboratory Tests Range/Units 06/22/20 06/22/20 06/22/20 11:35 11:35 11:35 WBC (4.4-10.8) 10^3/uL 5.70 RBC (4.36-5.78) 10^6/uL 4.51 Hgb (13.5-17.5) g/dL 14.8 Hct (40.0-50.0) % 42.2 MCV (80-95) fL 93.6 MCH (27.0-33.0) pg 32.8 MCHC (32.0-36.0) % 35.1 RDW (11.8-14.1) % 12.0 Plt Count (130-400) 10^3/uL 240 MPV (8.0-11.0) fL 10.5 Immature Gran % 0.4 Neutrophils % 59.7 Lymphocytes % 27.7 Monocytes % 9.5 Eosinophils % 1.8 Basophils % 0.9 Nucleated RBC % % 0 Absolute Neutrophils (1.2-6.7) 10^3/uL 3.41 Absolute Lymphocytes (1.2-3.4) 10^3/uL 1.58 Absolute Monocytes (0.1-0.8) 10^3/uL 0.54 Absolute Eosinophils (0.0-0.7) 10^3/uL 0.10 Absolute Basophils (0.0-0.2) 10^3/uL 0.05 PT (9.3-11.0) sec 11.3 H INR (0.9-1.1) 1.1 APTT (21.0-31.4) sec 29.1 Sodium (136-145) mmol/L 138 Potassium (3.5-5.1) mmol/L 3.8 Chloride (98-107) mmol/L 103 Carbon Dioxide (21.0-32.0) mmol/L 27.4 Anion Gap (3-11) mmol/L 7.6 BUN (7-18) mg/dL 16 Creatinine (0.70-1.30) mg/dL 1.49 H Estimated GFR/1.73 m2 (mL/min/1.73m2) 49.72 Glucose (74-106) mg/dL 90 Calcium (8.5-10.1) mg/dL 8.3 L Magnesium (1.8-2.4) mg/dL 2.1 Total Bilirubin (0.2-1.0) mg/dL 0.5 AST (15-37) U/L 12 L ALT (16-63) U/L 17 Alkaline Phosphatase (46-116) U/L 66 Troponin I (<0.06) ng/mL < 0.05 Total Protein (6.4-8.2) g/dL 7.2 Albumin (3.4-5.0) g/dL 4.0 TSH (0.36-3.74) uIU/mL 1.16 ECG Data Attestation: I personally reviewed and interpreted this ECG (s) as follows: Interpretation: Please see official report by Dr. Ruiz. Sinus rhythm, ventricular rate of 84. No STEMI HPI General Mode of arrival: ambulatory. Date/Time Provider Initiated Documentation: 06/22/20 11:34. Limitations to Documentation: no limitations. Information obtained by: patient. HPI Narrative: This is a 49-year-old gentleman with significant past medical history that includes CVA, hypertension, anxiety, hyperlipidemia, atrial fibrillation, status post ablation, chronic anticoagulation, presents to the ER for what he describes as strong palpitations. He denies smoking cigarettes, drinking alcohol or any drug use. He reports that his initial diagnosis of A. fib and CVA occurred approximately 3-4 years ago. Since that time he occasionally has palpitations but feels as though over the past couple of months they are more frequent and feel more severe. His last episode of palpitations was yesterday around 6 PM, resolved spontaneously. He denies any recent illness or trauma. He is actually currently asymptomatic. He denies headache, visual changes, chest pain, shortness of breath, abdominal pain, nausea, vomiting, change in bowel or bladder function, numbness, tingling, weakness, pain or swelling in his legs. He reports occasional back discomfort as well as left arm discomfort but he feels as though this is muscular it is not necessarily new or associated with the palpitations. He also reports that he is rather gassy. He contacted his primary care provider and they recommended coming to the ER for further evaluation given his past medical history. He does report a pressure or sensation in his chest when he is having a strong palpitation but denies any pain or tightness. Related Data Home Medications Medication Instructions Recorded Confirmed Wellbutrin XL 300 mg 24 hr tablet, 300 mg PO QAM #90 tab NS 08/07/19 06/22/20 extended release diltiazem HCl 240 mg 240 mg PO DAILY #90 cap 12/15/19 06/22/20 capsule,extended release 24 hr atorvastatin 40 mg tablet 40 mg PO DAILY #90 tab-cap 03/14/20 06/22/20 apixaban 5 mg tablet 5 mg PO BID #180 tab 05/14/20 06/22/20 Previous Rx's Medication Instructions Recorded Wellbutrin XL 300 mg 24 hr tablet, 300 mg PO QAM #90 tab NS 08/07/19 extended release diltiazem HCl 240 mg 240 mg PO DAILY #90 cap 12/15/19 capsule,extended release 24 hr atorvastatin 40 mg tablet 40 mg PO DAILY #90 tab-cap 03/14/20 apixaban 5 mg tablet 5 mg PO BID #180 tab 05/14/20 Allergies Allergy/AdvReac Type Severity Reaction Status Date / Time hydrocodone AdvReac Mild Headache, Verified 05/31/20 09:03 Vomiting General Stated Complaint: Chest Pain NAKITA: 2 Review of Systems Constitutional Constitutional: Denies fatigue, Denies fever(s) and Denies weakness Eyes Eyes: Denies change in vision ENT Ears, Nose, Mouth, and Throat: Denies neck pain Cardiovascular Cardiovascular: Denies chest pain, Reports palpitations and Denies dyspnea Respiratory Respiratory: Denies cough, Denies dyspnea and Denies wheezing Gastrointestinal Gastrointestinal: Denies abdominal pain, Denies nausea and Denies vomiting Musculoskeletal Musculoskeletal: Reports back pain (Occasional, none now), Denies neck pain, Denies numbness and Denies tingling Integumentary/Breasts Skin/Breast: Denies rash Neurologic Neurologic: Denies numbness, Denies tingling and Denies weakness Endocrine Endocrine: Denies fatigue and Reports palpitations Allergic/Immunologic Allergic/Immunologic: Denies wheezing [facility] Medical History (Updated 06/22/20 @ 14:19 by MIAH Castro) Chewing tobacco use Chronic anticoagulation Warfarin CVA (cerebral vascular accident) (11/20/16) Essential hypertension Generalized anxiety disorder Hyperlipidemia Irritable bowel syndrome Lumbosacral spondylosis without myelopathy Now seeing [facility] Meralgia paresthetica of right side MARY (obstructive sleep apnea) Original PSG 01/13/17; CPAP Paroxysmal atrial fibrillation Pulmonary vein isolation in January 2017 at [facility] Sensorineural hearing loss (SNHL) of left ear with unrestricted hearing of right ear Umbilical hernia Surgical History H/O vasectomy (03/18/10) S/P ablation of atrial fibrillation (02/05/17) Ablation and pulmonary vein isolation S/P colonoscopy (05/16/18) S/P left inguinal hernia repair S/P right knee arthroscopy (~1988) S/P shoulder surgery (08/26/08) Right Family History Mother Presence of permanent cardiac pacemaker Atrial fibrillation Heart disease Type 2 diabetes mellitus Father Hypertension Sister Type 2 diabetes mellitus Son No problems noted. Son No problems noted. Paternal Grandmother , at 84 of dementia Dementia Paternal Grandfather , At 72 No problems noted. Maternal Grandmother No problems noted. Maternal Grandfather No problems noted. Paternal Uncle Colon cancer Paternal Aunt Colon cancer Social History Smoking/Tobacco Use Status: Current every day Tobacco Type: smokeless tobacco Smokeless tobacco user: chewing tobacco Quit status: considering quitting Second Hand Exposure: Yes Counseling given: patient declined Alcohol Intake: never Details: quit chewing tobacco three days ago. Drug use: Never Substance use type: does not use Caregiver/Support person: No Household members: spouse Housing: house Communication Needs: None current occupation: [employer] Pets and animals: Yes Pets and animals: cat(s) and dog(s) Sexually active: Yes Do you think of yourself as: straight/heterosexual Current gender identity: male What is your relationship status?: How often do you talk on the phone with friends or family?: twice per week How often do you get together with friends or relatives?: once per week How often do you attend holiness or oriental orthodox services?: decline to answer Do you belong to any clubs or organized social groups?: no Panel score (0-1 are the most socially isolated patients): 2 What type of physical activity do you participate in: none Anna/Anglican: None Special anna needs: No Seatbelt use: always Helmet use: No Drive intox or ride w/intox 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: No Do you feel safe at home: Yes Do you feel safe in your relationship?: Yes Exam Const General: cooperative, healthy appearing, comfortable and no acute distress Orientation: alert, awake and oriented x3 HENMT Head: normal to inspection, normocephalic and atraumatic General nose exam: external nose normal Face and sinus: normal facial exam Mouth: moist mucous membranes Throat: posterior oropharynx normal Eyes Conjunctivae: conjunctivae normal Sclera: sclerae normal Neck Neck: normal visual inspection, full ROM, trachea midline, supple and nontender Resp Effort & Inspection: normal respiratory effort and able to speak in complete sentences Auscultation: clear to auscultation bilaterally Cardio Rate: regular rate Rhythm: regular rhythm GI Inspection: obesity Palpation: soft, not firm, no guarding, not rigid and nontender Auscultation: normal bowel sounds Back/Spine/Pelvis Back: No back tenderness Skin General skin exam: no rashes or lesions noted Neuro General: patient alert, patient awake, moves all extremities and no focal motor deficits Cognition: normal cognition Speech: speech normal Gait: normal gait Motor: muscle tone normal throughout and strength 5/5 throughout Sensory Exam: no sensory deficits noted Extrem General: normal to inspection, full ROM, capillary refill normal, no pedal edema and no calf tenderness Psych Appearance: grossly normal Mental Status: mental status grossly normal Course Vital Signs Vital signs: Vital Signs Temperature 36.3 C L 06/22/20 11:33 Pulse 86 06/22/20 11:33 Respiratory Rate 23 06/22/20 11:33 Blood Pressure 170/95 H 06/22/20 11:33 Pulse Oximetry 99 06/22/20 11:33 Temperature 36.3 C L 06/22/20 11:33 Pulse 74 06/22/20 13:21 Pulse 76 06/22/20 13:21 Respiratory Rate 15 06/22/20 13:21 Respiratory Effort Non-Labored 06/22/20 11:47 Respiratory Depth Normal 06/22/20 11:47 Respiratory Pattern Normal 06/22/20 11:47 Blood Pressure 131/71 06/22/20 13:21 Blood Pressure Mean 81 06/22/20 13:20 Blood Pressure Position Sitting 06/22/20 11:33 Pulse Oximetry 96 06/22/20 13:21 Oxygen Delivery Method Room Air 06/22/20 11:33 Oxygen Flow Rate 0 06/22/20 11:33 Pain Level 0 06/22/20 11:33 Lab/Test Results Lab/Test Results: Laboratory Tests Range/Units 06/22/20 06/22/20 06/22/20 11:35 11:35 11:35 WBC (4.4-10.8) 10^3/uL 5.70 RBC (4.36-5.78) 10^6/uL 4.51 Hgb (13.5-17.5) g/dL 14.8 Hct (40.0-50.0) % 42.2 MCV (80-95) fL 93.6 MCH (27.0-33.0) pg 32.8 MCHC (32.0-36.0) % 35.1 RDW (11.8-14.1) % 12.0 Plt Count (130-400) 10^3/uL 240 MPV (8.0-11.0) fL 10.5 Immature Gran % 0.4 Neutrophils % 59.7 Lymphocytes % 27.7 Monocytes % 9.5 Eosinophils % 1.8 Basophils % 0.9 Nucleated RBC % % 0 Absolute Neutrophils (1.2-6.7) 10^3/uL 3.41 Absolute Lymphocytes (1.2-3.4) 10^3/uL 1.58 Absolute Monocytes (0.1-0.8) 10^3/uL 0.54 Absolute Eosinophils (0.0-0.7) 10^3/uL 0.10 Absolute Basophils (0.0-0.2) 10^3/uL 0.05 PT (9.3-11.0) sec 11.3 H INR (0.9-1.1) 1.1 APTT (21.0-31.4) sec 29.1 Sodium (136-145) mmol/L 138 Potassium (3.5-5.1) mmol/L 3.8 Chloride (98-107) mmol/L 103 Carbon Dioxide (21.0-32.0) mmol/L 27.4 Anion Gap (3-11) mmol/L 7.6 BUN (7-18) mg/dL 16 Creatinine (0.70-1.30) mg/dL 1.49 H Estimated GFR/1.73 m2 (mL/min/1.73m2) 49.72 Glucose (74-106) mg/dL 90 Calcium (8.5-10.1) mg/dL 8.3 L Magnesium (1.8-2.4) mg/dL 2.1 Total Bilirubin (0.2-1.0) mg/dL 0.5 AST (15-37) U/L 12 L ALT (16-63) U/L 17 Alkaline Phosphatase (46-116) U/L 66 Troponin I (<0.06) ng/mL < 0.05 Total Protein (6.4-8.2) g/dL 7.2 Albumin (3.4-5.0) g/dL 4.0 TSH (0.36-3.74) uIU/mL 1.16
[2020-06-22] MEDS: Normal Saline 1,000 ML 1000 ML IV (14:22)
[2020-06-22 15:36] LABS: Troponin I < 0.05 ng/mL (<0.06)
== END 2020-06-22 16:40 | disposition home or self-care (01) ==
PROVIDERS: Emergency Provider Physician Assistant; PCP Nurse Practitioner Family
DX: R00.2 Palpitations (principal); I48.0 Paroxysmal atrial fibrillation; I10 Essential (primary) hypertension
CPT/HCPCS: 36415; 80053; 93005; 96360; 99285; 71046; 83735; 84443; 84484; 85025; 85610; 85730; 93010; 93225; 99284

== ENCOUNTER 2020-06-24 16:16 | Outpatient (CLI) | payer OTHER, SELFPAY ==
--- NOTE | 2020-06-25 08:49 | W.HOLTRPT ---
Date of service: 06/25/20 Time of Service: 08:50 Holter Monitor Report Referring Provider:: wendy Indications:: Palpitations Holter Monitor Note: This is a 48-hour Holter monitor ordered for indication of palpitations. ?The patient was in normal sinus rhythm for the majority of the recording with an average heart rate of 84 bpm. ?There were no episodes of supraventricular tachycardia and rare PACs. ?There are no episodes of ventricular tachycardia and 2 solitary PVCs. ?There were no episodes of atrial fibrillation, no pauses grade 3 seconds no evidence of high degree heart block.
== END 2020-06-24 16:36 ==
PROVIDERS: PCP Nurse Practitioner Family; Visit Provider Physician Assistant
DX: R00.2 Palpitations (principal); Z86.79 Personal history of other diseases of the circulatory system; I49.3 Ventricular premature depolarization
CPT/HCPCS: 93226

== ENCOUNTER 2020-12-02 10:43 | Outpatient (CLI) | payer OTHER, SELFPAY ==
[2020-12-03 13:08] LABS: COVID-19 RT-PCR UVMMC Result Negative (Negative)
== END 2020-12-02 10:44 | disposition home or self-care (01) ==
LOC: LBO 10:43
PROVIDERS: PCP Nurse Practitioner Family; Visit Provider Nurse Practitioner Family
DX: Z20.828 Contact with and (suspected) exposure to other viral communicable diseases (principal)
CPT/HCPCS: U0003

== ENCOUNTER 2020-12-23 09:02 | Outpatient (CLI) | payer OTHER, SELFPAY ==
[2020-12-24 17:32] LABS: COVID-19 RT-PCR UVMMC Result Negative (Negative)
== END 2020-12-23 09:03 | disposition home or self-care (01) ==
PROVIDERS: PCP Nurse Practitioner Family; Visit Provider Nurse Practitioner Family
DX: Z20.828 Contact with and (suspected) exposure to other viral communicable diseases (principal)
CPT/HCPCS: U0003

== ENCOUNTER 2021-04-05 12:19 | Emergency (ER) | payer OTHER, SELFPAY ==
[2021-04-05] VITALS (32 sets, daily range): BP systolic 108–148; BP diastolic 80–121; PULSE 75–99; RESP 10–26; TEMP 36.5; O2SAT 86–98
--- NOTE | 2021-04-05 12:30 | RT.EKG_ITS ---
APPROVED REPORT Exam: Resting ECG Reason for Exam: LEFT SIDED WEAKNESS Patient Location: E HR:91 bpm ECG Measurements Heart Rate 91 AXIS UT 149 P 41 QRSd 96 QRS 56 QT 353 T 36 QTc 433 Conclusion Sinus rhythm...normal P axis, V-rate 60- 99
--- NOTE | 2021-04-05 12:35 | ED.GENADUL_ITS ---
Discharge Plan Disposition Patient Disposition: HOME Condition: Stable Discharge Details Clinical Impression: Arm paresthesia, left Primary Care Provider: Kena Rebollar ED Provider: Edith Gonzales Home Meds and New Rx's Prescriptions: Continued apixaban 5 mg tablet 5 mg PO BID Qty: 180 RF: 4 atorvastatin [Lipitor] 40 mg tablet 40 mg PO DAILY Qty: 90 RF: 4 topiramate [Topamax] 50 mg tablet 50 mg PO DAILY Qty: 90 RF: 0 sumatriptan succinate [Imitrex] 50 mg tablet 50 mg PO Q2H Qty: 90 RF: 0 diltiazem HCl 240 mg capsule,extended release 24hr 240 mg PO DAILY Qty: 90 RF: 4 Discharge Instructions Instructions: Peripheral Neuropathy (ED), Paresthesia (ED) Additional Instructions: Imaging and labs completed here are reassuring. Your exam is concerning for ulnar neuritis with symptoms elicited at the elbow. Alternatively, this could be associated with your known neck disease. Please discuss this further with your primary care. As discussed, there are further imaging techniques we can utilize, if you change your mind would like to have these return anytime. If you develop chest pain, shortness of breath, weakness or other new/worsening symptoms please seek care urgently once again. Referrals: Kena Rebollar, DOMONIQUE [Primary Care Provider] - Discharge Data Discharge Date/Time-TO BE ENTERED AT DEPARTURE: 04/05/21 17:45 Medical Decision Making <MIAH Castro - Last Filed: 04/06/21 08:02> This is a 50-year-old male, past medical history that includes headaches, proximal atrial fibrillation, ablation, hypertension, anxiety, CVA, chronic anticoagulation, presenting to the ER complaining of palpitations and left arm paresthesias. Patient states that he does have palpitations fairly frequently although today he had a strong palpitation. Patient denies any chest pain. Patient is specifically concerned of CVA given his paresthesias but this certainly could be atypical chest pain versus nerve impingement, anxiety, etc. Will obtain cardiac work-up and obtain CT of the head. Given he recently had a palpitation, will obtain repeat troponin and EKG at the 3-hour luigi Initial laboratory values are unremarkable. CT imaging of head and chest x-ray read by radiology as negative. Patient remains hemodynamically stable. Upon reevaluation patient states that his paresthesias of his left arm are barely present any longer. He is agreeable to delta troponin and EKG Medical Records Medical records reviewed: Yes I reviewed the patient's medical records. Imaging Data Radiologic Study: Attestation: I personally reviewed and interpreted this imaging study as follows: Imaging: CT Scan Radiologist's impression: EXAM: CT HEAD WO CLINICAL HISTORY: Left arm paresthesias, history of CVA. TECHNIQUE: Imaging Protocol: Axial computed tomography images with coronal and sagittal reformatted images were created and reviewed COMPARISON: CT HEAD WITHOUT CONTRAST from 12/03/2016 MR MR BRAIN WO from 01/12/2020 MR MR BRAIN WO from 01/12/2020 FINDINGS: Ventricles and Extra axial spaces: Normal in size and morphology for the patient's age. Hemorrhage: None. Cerebral parenchyma: Tiny area of decreased attenuation in the right parietal white matter, unchanged. Brain parenchyma is otherwise normal. Midline shift: None. Brainstem/Cerebellum: Normal. Calvarium: Normal. Visualized Paranasal sinuses/Mastoids: Clear. Soft Tissues: Unremarkable. IMPRESSION: No acute intracranial process. Radiologic Study #2: Attestation: I personally reviewed and interpreted this imaging study as follows: Imaging: X-Ray Radiologist's impression: EXAM: XR CHEST 2V PA LATERAL CLINICAL HISTORY: Left arm paresthesias TECHNIQUE: 2D digital imaging was performed. COMPARISON: CT CHEST FOR PULMONARY EMBOLUS from 03/18/2017 CT CHEST FOR PULMONARY EMBOLUS from 03/18/2017 CR CHEST 2 VIEWS PA,LAT from 04/23/2018 CR XR CHEST 2V PA LATERAL from 06/22/2020 FINDINGS: The heart is enlarged, unchanged. Lungs are clear. No infiltrate, effusion or pneumothorax is seen. Degenerative changes are seen in the spine. IMPRESSION: No acute abnormality. Lab Data Lab results reviewed: Yes I reviewed the patient's lab results. Labs: Laboratory Tests Range/Units 04/05/21 04/05/21 04/05/21 13:10 13:10 13:10 WBC (4.4-10.8) 10^3/uL 6.55 RBC (4.36-5.78) 10^6/uL 4.53 Hgb (13.5-17.5) g/dL 14.7 Hct (40.0-50.0) % 41.1 MCV (80-95) fL 90.7 MCH (27.0-33.0) pg 32.5 MCHC (32.0-36.0) % 35.8 RDW (11.8-14.1) % 11.9 Plt Count (130-400) 10^3/uL 259 MPV (8.0-11.0) fL 9.7 Immature Gran % 0.3 Neutrophils % 63.1 Lymphocytes % 23.4 Monocytes % 10.7 Eosinophils % 1.7 Basophils % 0.8 Nucleated RBC % % 0 Absolute Neutrophils (1.2-6.7) 10^3/uL 4.14 Absolute Lymphocytes (1.2-3.4) 10^3/uL 1.53 Absolute Monocytes (0.1-0.8) 10^3/uL 0.70 Absolute Eosinophils (0.0-0.7) 10^3/uL 0.11 Absolute Basophils (0.0-0.2) 10^3/uL 0.05 Sodium (136-145) mmol/L 141 Potassium (3.5-5.1) mmol/L 3.8 Chloride (98-107) mmol/L 105 Carbon Dioxide (21.0-32.0) mmol/L 28.8 Anion Gap (3-11) mmol/L 7.2 BUN (7-18) mg/dL 13 Creatinine (0.70-1.30) mg/dL 1.1 Estimated GFR/1.73 m2 (mL/min/1.73m2) >= 60.00 Glucose (74-106) mg/dL 102 Calcium (8.5-10.1) mg/dL 9.0 Magnesium (1.8-2.4) mg/dL 2.2 Total Bilirubin (0.2-1.0) mg/dL 0.4 AST (15-37) U/L 13 L ALT (16-63) U/L 25 Alkaline Phosphatase (46-116) U/L 91 Troponin I (<0.06) ng/mL < 0.05 Total Protein (6.4-8.2) g/dL 7.7 Albumin (3.4-5.0) g/dL 4.3 TSH (0.36-3.74) uIU/mL 1.50 ECG Data Attestation: I personally reviewed and interpreted this ECG (s) as follows: Interpretation: Please see official report by Dr. Mackey. Sinus rhythm, ventricular rate of 91, no STEMI. <MIAH Soto - Last Filed: 04/05/21 17:22> Care transition myself from Reynaldo Espinoza PA-C. Please see his initial note regarding history, presentation and exam. In brief, patient presents today with concern for some left arm tingling. Patient does have a history of a CVA which he attributed to atrial fibrillation. Since her CVA 4 years ago, patient reports that he did have an ablation which was successful. He reports that in the past 4 years, he has had 4-5 episodes of atrial fibrillation all of which were less than 1 minute. Patient denied any chest pain, shortness of breath. His neurological exam was intact on presentation. CT was obtained and was found to be benign. No significant electrolyte or lab abnormalities. Given the left arm discomfort as well as the patient's comorbidities, Mr. Espinoza astutely felt that repeat troponin would be appropriate. At the time I assumed care, repeat troponin pending. Repeat troponin remains less than 0.05 . I discussed these findings with the patient. Reevaluated the patient. He continues to express some mild tingling in the left arm and draws a line down his ulnar nerve. With percussion over his need ulnar nerve at the elbow, symptoms are exacerbated. He has negative Spurling's. He does report that he has some chronic neck pain for which he is seeing his primary care. Patient I did discuss imaging of his neck for CTA of head and neck. He declines this at this time. Would prefer to follow-up with primary care. We also discussed referral to physical therapy he would like to hold off on this as well. Prefers to follow-up with primary care. Return precautions were discussed. Patient has not had any missed doses of his anticoagulation and will continue with medication. All questions concerns were addressed and he is agreement this plan HPI <MIAH Castro - Last Filed: 04/06/21 08:02> General Mode of arrival: ambulatory . Date/Time Provider Initiated Documentation: 04/05/21 12:20 . Limitations to Documentation: no limitations . Information obtained by: patient . HPI Narrative: This is a 50-year-old male, past medical history of CVA, November 2016, now taking Eliquis daily, hypertension, anxiety, proximal atrial fibrillation now status post ablation, presenting to the ER complaining of left arm paresthesias and palpitations. Patient states that he is right-hand dominant. He went to bed last night feeling asymptomatic. This morning at work around 8 AM he states that he noticed that he had posterior left arm paresthesias that went from his shoulder down past his elbow into his forearm into his hand, unsure what digits were affected. He states now the paresthesias are only in his upper arm. He also reports that he had a really strong palpitation just prior to arrival. Patient states that he has been dealing with fairly chronic headaches for nearly a year, has been evaluated by his primary care provider for this. He currently denies any headache, neck pain, visual changes, chest pain, shortness of breath abdominal pain, nausea, vomiting, incontinence, pain or swelling in his legs, weakness or numbness. Patient denies any sequelae from his previous CVA in November 2016, at that time was given TPA. Related Data Home Medications Medication Instructions Recorded Confirmed apixaban 5 mg tablet 5 mg PO BID #180 tab 05/14/20 04/05/21 diltiazem HCl 240 mg 240 mg PO DAILY #90 cap 01/03/21 04/05/21 capsule,extended release 24 hr atorvastatin 40 mg tablet 40 mg PO DAILY #90 tab-cap 03/18/21 04/05/21 sumatriptan succinate 50 mg tablet 50 mg PO Q2H #90 tab 03/18/21 04/05/21 topiramate 50 mg tablet 50 mg PO DAILY #90 tab 03/18/21 04/05/21 Previous Rx's Medication Instructions Recorded apixaban 5 mg tablet 5 mg PO BID #180 tab 05/14/20 diltiazem HCl 240 mg 240 mg PO DAILY #90 cap 01/03/21 capsule,extended release 24 hr atorvastatin 40 mg tablet 40 mg PO DAILY #90 tab-cap 03/18/21 sumatriptan succinate 50 mg tablet 50 mg PO Q2H #90 tab 03/18/21 topiramate 50 mg tablet 50 mg PO DAILY #90 tab 03/18/21 Allergies Allergy/AdvReac Type Severity Reaction Status Date / Time hydrocodone AdvReac Mild Headache, Verified 03/18/21 08:56 Vomiting General Stated Complaint: GenMedical NAKITA: 3 Review of Systems <MIAH Castro - Last Filed: 04/06/21 08:02> Constitutional Constitutional: Denies fatigue, Denies fever(s), Reports headache(s) and Denies weakness Eyes Eyes: Denies change in vision ENT Ears, Nose, Mouth, and Throat: Reports headache(s) and Denies neck pain Cardiovascular Cardiovascular: Denies chest pain and Denies dyspnea Respiratory Respiratory: Denies cough and Denies dyspnea Gastrointestinal Gastrointestinal: Denies abdominal pain, Denies nausea and Denies vomiting Genitourinary Genitourinary: Denies dysuria Musculoskeletal Musculoskeletal: Denies back pain, Denies neck pain and Reports tingling Integumentary/Breasts Skin/Breast: Denies rash Neurologic Neurologic: Reports headache(s), Reports tingling and Denies weakness Psychiatric Psychiatric: Reports anxiety Endocrine Endocrine: Denies fatigue Hematologic/Lymphatic Hematologic/Lymphatic: Reports easy bleeding and Reports easy bruising PFSH <MIAH Castro - Last Filed: 04/06/21 08:02> Medical History Chewing tobacco use Chronic anticoagulation Eliquis CVA (cerebral vascular accident) (11/20/16) Essential hypertension Generalized anxiety disorder Hyperlipidemia Irritable bowel syndrome Lumbosacral spondylosis without myelopathy Now seeing [facility] Meralgia paresthetica of right side MARY (obstructive sleep apnea) Original PSG 01/13/17; CPAP Paroxysmal atrial fibrillation Pulmonary vein isolation in January 2017 at [facility] Sensorineural hearing loss (SNHL) of left ear with unrestricted hearing of right ear Umbilical hernia Surgical History H/O vasectomy (03/18/10) S/P ablation of atrial fibrillation (02/05/17) Ablation and pulmonary vein isolation S/P colonoscopy (05/16/18) S/P left inguinal hernia repair S/P right knee arthroscopy (~1988) S/P shoulder surgery (08/26/08) Right Family History Mother Presence of permanent cardiac pacemaker Atrial fibrillation Heart disease Type 2 diabetes mellitus Father Hypertension Sister Type 2 diabetes mellitus Son No problems noted. Son No problems noted. Paternal Grandmother , at 84 of dementia Dementia Paternal Grandfather , At 72 No problems noted. Maternal Grandmother No problems noted. Maternal Grandfather No problems noted. Paternal Uncle Colon cancer Paternal Aunt Colon cancer Social History Smoking/Tobacco Use Status: Never Smokeless tobacco user: chewing tobacco Quit status: considering quitting Second Hand Exposure: Yes Counseling given: patient declined Smoking risk assessment performed?: Yes Alcohol Intake: never Details: quit chewing tobacco three days ago. Drug use: Never Substance use type: does not use Caregiver/Support person: No Household members: spouse Housing: house Communication Needs: None current occupation: [employer] Pets and animals: Yes Pets and animals: cat(s) and dog(s) Sexually active: Yes Do you think of yourself as: straight/heterosexual Current gender identity: male What is your relationship status?: How often do you talk on the phone with friends or family?: twice per week How often do you get together with friends or relatives?: once per week How often do you attend spiritism or congregation services?: decline to answer Do you belong to any clubs or organized social groups?: no Panel score (0-1 are the most socially isolated patients): 2 What type of physical activity do you participate in: none Anna/Cheondoism: None Special anna needs: No Seatbelt use: always Helmet use: No Drive intox or ride w/intox tanker driver: No Do you feel safe at home: Yes Do you feel safe in your relationship?: Yes Exam <MIAH Castro - Last Filed: 04/06/21 08:02> Const General: cooperative, healthy appearing, comfortable and no acute distress Orientation: alert, awake and oriented x3 HENMT Head: normal to inspection, normocephalic and atraumatic Face and sinus: normal facial exam Eyes General: appearance normal, both eyes and all related structures Conjunctivae: conjunctivae normal Neck Neck: normal visual inspection, full ROM, no meningeal signs, trachea midline, supple and nontender Other: No discomfort with axial load Resp Effort & Inspection: normal respiratory effort and able to speak in complete sentences Auscultation: clear to auscultation bilaterally Cardio Rate: regular rate Rhythm: regular rhythm GI Palpation: soft and nontender Back/Spine/Pelvis Back: no CVA tenderness and No back tenderness Skin General skin exam: no rashes or lesions noted Neuro General: patient alert, patient awake, moves all extremities and no focal motor deficits Cognition: normal cognition Speech: speech normal Gait: normal gait Motor: muscle tone normal throughout and strength 5/5 throughout Sensory Exam: no sensory deficits noted and normal double simultaneous stimulation Coordination: [id number] test normal and Does not sway with eyes open Extrem General: normal to inspection, full ROM and capillary refill normal Psych Appearance: grossly normal Mental Status: mental status grossly normal Course <MIAH Castro - Last Filed: 04/06/21 08:02> Vital Signs Vital signs: Vital Signs Temperature 36.5 C 04/05/21 12:23 Pulse 94 H 04/05/21 12:23 Respiratory Rate 18 04/05/21 12:23 Blood Pressure 148/94 H 04/05/21 12:23 Pulse Oximetry 97 04/05/21 12:23 Temperature 36.5 C 04/05/21 12:23 Temperature Source Skin 04/05/21 12:23 Pulse 94 H 04/05/21 12:23 Respiratory Rate 18 04/05/21 12:23 Blood Pressure 148/94 H 04/05/21 12:23 Blood Pressure Position Sitting 04/05/21 12:23 Pulse Oximetry 97 04/05/21 12:23 Oxygen Delivery Method Room Air 04/05/21 12:23 Oxygen Flow Rate 0 04/05/21 12:23 Pain Level 0 04/05/21 12:23 Sign Out <MIAH Castro - Last Filed: 04/06/21 08:02> Sign Out Data: Sign Out Comment: Left arm paresthesias. History of CVA. Initial cardiac enzyme, troponin, and head CT unremarkable. Patient agreeable to awaiting a delta troponin and ekg Last updated by Simon Espinoza PA at 04/05/21 15:01
--- NOTE | 2021-04-05 12:45 | DI.CT_ITS ---
Exam(s) CT HEAD WO EXAM: CT HEAD WO CLINICAL HISTORY: Left arm paresthesias, history of CVA. TECHNIQUE: Imaging Protocol: Axial computed tomography images with coronal and sagittal reformatted images were created and reviewed COMPARISON: CT HEAD WITHOUT CONTRAST from 12/03/2016 MR MR BRAIN WO from 01/12/2020 MR MR BRAIN WO from 01/12/2020 FINDINGS: Ventricles and Extra axial spaces: Normal in size and morphology for the patient's age. Hemorrhage: None. Cerebral parenchyma: Tiny area of decreased attenuation in the right parietal white matter, unchanged . Brain parenchyma is otherwise normal. Midline shift: None. Brainstem/Cerebellum: Normal. Calvarium: Normal. Visualized Paranasal sinuses/Mastoids: Clear. Soft Tissues: Unremarkable. IMPRESSION: No acute intracranial process. RADIATION DOSE DELIVERED: 914.82mGy.cm Total DLP DATA REPOSITORY: All CT scans at this facility are submitted to the National Radiology Data Registry (NRDR) Dose Index Registry (DIR) with the [employer] (A[employer]). RADIATION OPTIMIZATION: All CT scans at this facility use at least one of these dose optimization te chniques: automated exposure control; mA and/or kV adjustment per patient size (includes targeted exa ms where dose is matched to clinical indication); or iterative reconstruction.
--- NOTE | 2021-04-05 12:45 | DI.RAD_ITS ---
Exam(s) XR CHEST 2V PA LATERAL EXAM: XR CHEST 2V PA LATERAL CLINICAL HISTORY: Left arm paresthesias TECHNIQUE: 2D digital imaging was performed. COMPARISON: CT CHEST FOR PULMONARY EMBOLUS from 03/18/2017 CT CHEST FOR PULMONARY EMBOLUS from 03/18/2017 CR CHEST 2 VIEWS PA,LAT from 04/23/2018 CR XR CHEST 2V PA LATERAL from 06/22/2020 FINDINGS: The heart is enlarged, unchanged. Lungs are clear. No infiltrate, effusion or pneumothorax is seen. Degenerative changes are seen in the spine. IMPRESSION: No acute abnormality. DATA REPOSITORY: RADIATION DOSE DELIVERED:
[2021-04-05 13:23] LABS: Abs Immature Grans 0.02 10^3/uL (0.0-0.06); Absolute Basophil Count 0.05 10^3/uL (0.0-0.2); Absolute Eosinophil Count 0.11 10^3/uL (0.0-0.7); Absolute Lymphocyte Count 1.53 10^3/uL (1.2-3.4); Absolute Neutrophil Count 4.14 10^3/uL (1.2-6.7); Basophils % 0.8; Eosinophils % 1.7; HCT 41.1 % (40.0-50.0); HGB 14.7 g/dL (13.5-17.5); Immature Grans % 0.3; Lymphocytes % 23.4; MCH 32.5 pg (27.0-33.0); MCHC 35.8 % (32.0-36.0); MCV 90.7 fL (80-95); MPV 9.7 fL (8.0-11.0); Monocytes % 10.7; Neutrophils % 63.1; Nucleated RBC 0 %; Platelet Count 259 10^3/uL (130-400); RBC 4.53 10^6/uL (4.36-5.78); RDW 11.9 % (11.8-14.1); RDW-SD 39.5 fL; WBC 6.55 10^3/uL (4.4-10.8)
[2021-04-05 13:45] LABS: ALT 25 U/L (16-63); AST 13 U/L (15-37); Albumin 4.3 g/dL (3.4-5.0); Alkaline Phosphatase 91 U/L (46-116); Anion Gap 7.2 mmol/L (3-11); BUN 13 mg/dL (7-18); Bilirubin, Total 0.4 mg/dL (0.2-1.0); CO2 28.8 mmol/L (21.0-32.0); CREATININE 1.1 mg/dL (0.70-1.30); Chloride 105 mmol/L (98-107); Glucose 102 mg/dL (74-106); Magnesium 2.2 mg/dL (1.8-2.4); Potassium 3.8 mmol/L (3.5-5.1); Sodium 141 mmol/L (136-145); Total Protein 7.7 g/dL (6.4-8.2); Troponin I < 0.05 ng/mL (<0.06)
--- NOTE | 2021-04-05 15:30 | RT.EKG_ITS ---
APPROVED REPORT Exam: Resting ECG Reason for Exam: paliptation Patient Location: E HR:84 bpm ECG Measurements Heart Rate 84 AXIS NV 146 P 16 QRSd 99 QRS 28 QT 374 T 37 QTc 442 Conclusion Sinus rhythm...normal P axis, V-rate 60- 99
[2021-04-05 16:49] LABS: Troponin I < 0.05 ng/mL (<0.06)
== END 2021-04-05 17:45 | disposition home or self-care (01) ==
PROVIDERS: Physician Assistant; Emergency Provider Physician Assistant; PCP Nurse Practitioner Family
DX: R20.2 Paresthesia of skin (principal); Z86.73 Personal history of transient ischemic attack (TIA), and cerebral infarction without residual deficits
CPT/HCPCS: 36415; 80053; 93005; 99285; 70450; 71046; 83735; 84443; 84484; 85025; 93010; 99284

== ENCOUNTER 2021-04-29 03:16 | Outpatient (CLI) | payer OTHER, SELFPAY ==
--- NOTE | 2021-04-29 09:30 | DI.RAD_ITS ---
Exam(s) XR CERVICAL SPINE COMP 4-5V EXAM: XR CERVICAL SPINE COMP 4-5V CLINICAL HISTORY: neck pain with headache,M54.2. TECHNIQUE: 2D digital imaging was performed. COMPARISON: No exams were available for comparison FINDINGS: The odontoid is intact. The lateral masses are well aligned. No acute fractures or subluxations are present. There is disc space narrowing at C6-C7. Endplate osteophytes are seen from C4-5 through C 7-T1. Mild neural foraminal narrowing is seen on the right at C3-C4. There is moderately severe kelsey rowing of the neural foramen on the right at C6-C7. There is straightening of the normal cervical lo rdosis. The bones are normally mineralized. The prevertebral soft tissues are unremarkable. IMPRESSION: [id number] degenerative changes in the cervical spine. DATA REPOSITORY: RADIATION DOSE DELIVERED:
== END 2021-04-29 03:36 ==
PROVIDERS: PCP Nurse Practitioner Family; Visit Provider Nurse Practitioner Family
DX: M47.812 Spondylosis without myelopathy or radiculopathy, cervical region (principal)
CPT/HCPCS: 72050

== ENCOUNTER 2022-05-17 02:52 | Outpatient (CLI) | payer OTHER, SELFPAY ==
[2022-05-17 10:56] LABS: Abs Immature Grans 0.02 10^3/uL (0.0-0.06); Absolute Basophil Count 0.06 10^3/uL (0.0-0.2); Absolute Eosinophil Count 0.11 10^3/uL (0.0-0.7); Absolute Lymphocyte Count 1.86 10^3/uL (1.2-3.4); Absolute Monocyte Count 0.57 10^3/uL (0.1-0.8); Absolute Neutrophil Count 3.26 10^3/uL (1.2-6.7); Eosinophils % 1.9; HCT 40.4 % (40.0-50.0); HGB 14.3 g/dL (13.5-17.5); Immature Grans % 0.3; Lymphocytes % 31.6; MCH 32.4 pg (27.0-33.0); MCHC 35.4 % (32.0-36.0); MCV 91 fL (80-95); MPV 9.4 fL (8.0-11.0); Monocytes % 9.7; Neutrophils % 55.5; Platelet Count 229 10^3/uL (130-400); RBC 4.42 10^6/uL (4.36-5.78); RDW 11.9 % (11.8-14.1); RDW-SD 39.9 fL; WBC 5.88 10^3/uL (4.4-10.8)
[2022-05-17 11:26] LABS: Anion Gap 7.3 mmol/L (3-11); BUN 20 mg/dL (7-18); CO2 29.7 mmol/L (21.0-32.0); CREATININE 1.1 mg/dL (0.70-1.30); Calcium 8.5 mg/dL (8.5-10.1); Calculated LDL 56 mg/dL (<100); Chloride 102 mmol/L (98-107); Cholesterol 121 mg/dL (<200); Estimated GFR 80.27 (mL/min/1.73m2); Glucose 117 mg/dL (74-106); HDL Cholesterol 52 mg/dL (40-60); Potassium 3.5 mmol/L (3.5-5.1); Sodium 139 mmol/L (136-145); Triglyceride 65 mg/dL (<150)
[2022-05-17 11:38] LABS: Hemoglobin A1C 5.5 % (<5.7)
[2022-05-17 20:51] LABS: PSA, Screening 0.3 ng/mL (<=3.5)
== END 2022-05-17 02:53 | disposition home or self-care (01) ==
LOC: LBO 02:52
PROVIDERS: PCP Nurse Practitioner Family; Visit Provider Nurse Practitioner Family
DX: E78.2 Mixed hyperlipidemia (principal); G47.33 Obstructive sleep apnea (adult) (pediatric); I48.0 Paroxysmal atrial fibrillation; Z00.00 Encounter for general adult medical examination without abnormal findings; I10 Essential (primary) hypertension
CPT/HCPCS: 36415; 80048; 80061; 84153; 83036; 85025

== ENCOUNTER 2022-07-03 03:32 | Outpatient (CLI) | payer OTHER, SELFPAY ==
[2022-07-03 16:08] LABS: Anion Gap 8.7 mmol/L (3-11); BUN 18 mg/dL (7-18); CO2 29.3 mmol/L (21.0-32.0); CREATININE 1.1 mg/dL (0.70-1.30); Calcium 9.1 mg/dL (8.5-10.1); Chloride 102 mmol/L (98-107); Estimated GFR 80.27 (mL/min/1.73m2); Glucose 99 mg/dL (74-106); Potassium 3.4 mmol/L (3.5-5.1); Sodium 140 mmol/L (136-145)
== END 2022-07-03 03:33 | disposition home or self-care (01) ==
LOC: LBO 03:32
PROVIDERS: PCP Nurse Practitioner Family; Visit Provider Nurse Practitioner Family
DX: I10 Essential (primary) hypertension (principal)
CPT/HCPCS: 36415; 80048

== ENCOUNTER 2022-09-20 14:40 | Outpatient (REF) | payer OTHER, SELFPAY ==
[2022-09-20 12:39] LABS: Bilirubin Negative (Negative); Blood Moderate (Negative); Clarity Sl Cloudy (Clear); Glucose Negative (Negative); Ketones Negative (Negative); Leukocyte Esterase Negative (Negative); Nitrite Negative (Negative); Specific Gravity 1.015 (1.005-1.025); Urobilinogen 0.2 EU/dL (Up TO 0.2)
[2022-09-20 12:46] LABS: Bacteria Rare HPF (Negative); C & S Indicated? C&S Done As Ordered; Casts Negative LPF (Negative); Crystals Negative HPF (Negative); Epithelial Cells Rare HPF (Negative); Mucus Negative (Negative); WBC 0-2 HPF (0-5)
== END 2022-09-20 14:41 | disposition home or self-care (01) ==
LOC: LBN 14:40
PROVIDERS: PCP Nurse Practitioner Family; Visit Provider Nurse Practitioner Family
DX: R31.9 Hematuria, unspecified (principal)
CPT/HCPCS: 81003; 81015; 87086

== ENCOUNTER 2022-09-21 11:21 | Outpatient (REF) | payer OTHER, SELFPAY ==
[2022-09-21 11:36] LABS: Abs Immature Grans 0.02 10^3/uL (0.0-0.06); Absolute Basophil Count 0.07 10^3/uL (0.0-0.2); Absolute Monocyte Count 0.71 10^3/uL (0.1-0.8); Absolute Neutrophil Count 4.59 10^3/uL (1.2-6.7); Eosinophils % 2.7; HGB 14.6 g/dL (13.5-17.5); Immature Grans % 0.3; Lymphocytes % 23.3; MCH 32.5 pg (27.0-33.0); MCHC 35.6 % (32.0-36.0); MCV 91 fL (80-95); MPV 9.6 fL (8.0-11.0); Monocytes % 9.7; Platelet Count 278 10^3/uL (130-400); RBC 4.49 10^6/uL (4.36-5.78); RDW 12.2 % (11.8-14.1); RDW-SD 40.5 fL; WBC 7.29 10^3/uL (4.4-10.8)
[2022-09-21 12:42] LABS: ALT 19 U/L (16-63); AST 16 U/L (15-37); Albumin 4.4 g/dL (3.4-5.0); Alkaline Phosphatase 79 U/L (46-116); Anion Gap 9.3 mmol/L (3-11); BUN 20 mg/dL (7-18); Bilirubin, Total 0.4 mg/dL (0.2-1.0); CO2 26.7 mmol/L (21.0-32.0); Chloride 102 mmol/L (98-107); Glucose 82 mg/dL (74-106); Potassium 3.4 mmol/L (3.5-5.1); Sodium 138 mmol/L (136-145)
== END 2022-09-21 11:22 | disposition home or self-care (01) ==
LOC: LBN 11:21
PROVIDERS: PCP Nurse Practitioner Family; Visit Provider Physical Therapy Assistant
DX: K62.89 Other specified diseases of anus and rectum (principal)
CPT/HCPCS: 80053; 85025

== ENCOUNTER 2022-09-22 01:00 | Outpatient (CLI) | payer OTHER, SELFPAY ==
--- NOTE | 2022-09-22 11:30 | DI.CT_ITS ---
Exam(s) CT ABDOMEN PELVIS W EXAM: CT ABDOMEN PELVIS W CLINICAL HISTORY: Concern for fistula and lashawn-anal abscess. TECHNIQUE: Imaging Protocol: Axial computed tomography images with coronal and sagittal reformatted images were created and reviewed CONTRAST MATERIAL: Intravenous: Omnipaque 350 Contrast volume:100 ml Oral: yes / COMPARISON: CT ABD PELVIS WITH CONTRAST from 08/27/2012 MR MRI - R LOWER EXT WO/W from 07/16/[address] ABDOMEN WO from 12/11/2018 FINDINGS: ABDOMEN: Lung Bases: Normal where visualized. Liver: Normal density. No suspicious mass. Cyst superior right lobe. Gallbladder and biliary tract: No radiodense calculus or dilation. Pancreas: Normal density, no abnormal calcifications or inflammatory process. Spleen: Normal. Kidneys: Normal size, contour and axis. No radiodense stones or obstructive uropathy. No masses seen. Adrenal glands: No masses seen. Abdominal Aorta: Abdominal portion non-dilated. PELVIS: Bladder: Mild wall thickening. No calculi.No focal mass. Bowel: No obstruction or bowel wall thickening. Appendix normal. Peritoneal cavity: No ascites, collection or mesenteric inflammatory response. Bones: Within normal limits for age. Reproductive organs: Prostate normal in size and shows few calcifications. Lymph nodes: Unremarkable. Soft tissues: Fatty containing right inguinal hernia. Elongated tubular appearing structure seen to the left side of the anus extending to the skin. There is no visible fluid within. No evidence of a bscess. A similar appearing density was noted on the 05/09 exam which was only partially included oc cluded on the exam. A linear defect is noted on prior MRI in this area. Impression: stable appearance of linear area of scarring in the left perianal region extending to the skin when compared with prior MRI. No evidence of abscess or significant surrounding inflammation.. RADIATION DOSE DELIVERED: 1,101.14mGy.cm Total DLP DATA REPOSITORY: All CT scans at this facility are submitted to the National Radiology Data Registry (NRDR) Dose Index Registry (DIR) with the [employer] (ACR). RADIATION OPTIMIZATION: All CT scans at this facility use at least one of these dose optimization te chniques: automated exposure control; mA and/or kV adjustment per patient size (includes targeted exa ms where dose is matched to clinical indication); or iterative reconstruction.
[2022-09-22] MEDS: Omnipaque 350 MG/ML 50 ML BTL PO (12:36)
[2022-09-22] MEDS: Breeza Beverage 473 ML BTL PO (12:37)
[2022-09-22] MEDS: Normal Saline - Diluent 50 ML VIAL IJ (14:03)
[2022-09-22] MEDS: Omnipaque 350 MG/ML 100 ML BTL IJ (14:04)
[2022-09-22] MEDS: Normal Saline Flush 10 ML SYR IVP (14:05)
== END 2022-09-22 01:20 ==
LOC: DI 01:00
PROVIDERS: PCP Nurse Practitioner Family; Visit Provider Physical Therapy Assistant
DX: K62.89 Other specified diseases of anus and rectum (principal); L98.8 Other specified disorders of the skin and subcutaneous tissue
CPT/HCPCS: 74177; J3490; Q9967

== ENCOUNTER 2022-10-10 09:12 | Day surgery (SDC) | payer OTHER, SELFPAY ==
--- NOTE | 2022-10-09 20:30 | W.PM.DSUDISC ---
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 Do not drive while using this medication. Continued losartan 100 mg tablet 100 mg PO DAILY Qty: 90 3RF sumatriptan succinate [Imitrex] 50 mg tablet 50 mg PO Q2H Qty: 90 0RF Rx Instructions: take 1 tab at onset of headache; if no relief may repeat 1 tab after at least 2 hrs; max = 4 tabs/24 hr PO sildenafil [Viagra] 50 mg tablet 50 mg PO DAILY PRN (Reason: sexual activity) Qty: 60 0RF Rx Instructions: administer 30 minutes to 4 hours before activity apixaban 5 mg tablet 5 mg PO BID Qty: 180 3RF amlodipine 5 mg tablet 5 mg PO DAILY Qty: 90 3RF lorazepam 1 mg tablet 1 mg PO DAILY PRN (Reason: anxiety) Qty: 15 0RF Rx Instructions: Take 1 tablet once a day as needed for increased anxiety diltiazem HCl 240 mg capsule,extended release 24hr 240 mg PO DAILY Qty: 90 4RF Rx Instructions: Take 1 tablet once a day atorvastatin [Lipitor] 40 mg tablet 40 mg PO DAILY Qty: 90 4RF venlafaxine 75 mg tablet extended release 24hr 75 mg PO DAILY Qty: 90 3RF Discharge Instructions Instructions: Anorectal Abscess and Anal Fistula (GEN) Additional Instructions: 1. Resume all of your medications, including your apixaban 2. Use Tylenol and ibuprofen [id number] for pain, use oxycodone as needed for severe pain. 3. Obtain a sitz bath from any pharmacy. Soak for 10-15 minutes in warm water, warm water mixed with half a cup of baking soda, or Epson salts after each bowel movement, or up to 5 times per day as needed for pain. 4. You may find that [id number] hemorrhoid medications like Preparation H will offer some relief as well. 5. Shower with warm soapy water. Pat dry. Use a menstrual pad if needed to protect your clothing, since you may experience a little bit of bleeding over the next day or so. 6.Call the office (or go directly to the emergency room after hours) if you notice any of the following: ? Develop chills (warm to touch), or if you have a thermometer ? and your temperature is above 101 ? Difficulty breathing or difficultly swallowing ? Persistent vomiting ? Any bleeding ? exceeding one tablespoon 7. Call your physician if the site where your intravenous was started becomes red, swollen, painful, and warm to touch. Stand Alone Forms: Sarah Gasca (DSU) Activity:: Activity as Tolerated Remove Dressings/Wound Care:: 24 hours Shower/Bathe:: 24 hours Diet:: As Tolerated Discharge Orders Discharge Orders: Discharge Order (Routine); Ordered 10/09/22 Ordered By: Tom Aguilar DS: Diagnosis Discharge Diagnosis (1) Anal fissure: Status: Acute Asessment and Plan: Estuardo, on the exam today, there was evidence of a perianal fistula. This means an abnormal connection between the inside lining of the anus, and your outside skin. You also have some inflammation towards the posterior right side of your anus that may be a fistula, or perhaps a fissure. I suspect a combination of these things this was contributing to your pain. I do not believe that the fistula will heal without intervention. Furthermore, because of the high nature of this fistula, I think he would benefit from the expertise of a colon and rectal surgeon, and procedures that we do not have available to us here at [facility]. I will place the referral today, and you should expect a phone call from [facility] over the next few weeks.
--- NOTE | 2022-10-09 20:33 | W.PM.OP ---
Date of service: 10/10/22 Time of Service: 13:00 Operative Note Operative Note DATE OF PROCEDURE: 10/10/22 PRE-OP DIAGNOSIS: Anal fissure POST-OP DIAGNOSIS: same Intersphincteric perianal fistula PROCEDURE: Anorectal exam under anesthesia SURGEON: Tom Aguilar GRAPHICS PRODUCTION SPECIALIST: Mary Wolf ANESTHESIA TYPE: Local By Surgeon and MAC Refer to Anesthesia Record ESTIMATED BLOOD LOSS: 15 PATHOLOGY: none sent COMPLICATIONS: None Patient was transported to: PACU Patient's condition: stable Indications: Estuardo is a 51-year-old male with persistent perianal pain. He underwent a CAT scan of the abdomen and pelvis that demonstrated the possibility of a fistula. Findings: Anterior high intersphincteric fistula with skin opening towards the patient's left side anterior to the trans-anal line Procedure Description: After saddle block, the patient was assisted to the lithotomy positioning. Care was taken to pad all the points of contact. Next, I prepped and draped the perineum and perianal region in the usual fashion. He was then placed in a little bit of Trendelenburg positioning. I started with digital rectal exam. There was a little bit of induration towards the patient's right posterior anus. The external anus and anal verge all appeared normal. Next, I gently dilated the anus. I then used a rigid anoscope's to examined the circumference of the anal canal and dentate line. There is a fibrosed external skin tag in the distribution of the left lateral hemorrhoid column. Otherwise, there is no evidence of any external hemorrhoids. Similarly, there are grade 1 internal hemorrhoids in the left lateral and right anterior columns. There is no evidence of any active bleeding. In lithotomy positioning, with the anus as a clock face, there is induration along the dentate line around 7:00. I do not see any discrete fistula. Using a lacrimal duct probe, I gently interrogated the area. I do not see any fistula openings in this area. Next, I turned my attention to the skin lesion around the 2 o'clock position. This is approximately 4 cm from the anal verge. Using a lacrimal duct probe, I gently examined this tract. It extends directly downward into the subcutaneous tissues approximately 0.5 cm. I cannot follow the tract much beyond that. Next, using a 16-gauge angiocatheter, I gently instilled 3% hydrogen peroxide into the external opening. I saw bubbles coming out of the anus. Therefore, using a Maria E Eaton anal speculum, I examined the circumference of the anal column. Again, using hydrogen peroxide to guide, I was able to see the origin of the fistula anterior, well above the dentate line. I was not able to cannulate the fistula tract for placement of a seton. And, given the extent of this fistula, and what feels like a transfer enteric trajectory, I felt the safest thing to do at this point was to terminate the procedure. I explained the findings to the patient in the recovery unit, and recommend consultation with a colorectal specialist for their opinion regarding definitive management of this fistula.
[2022-10-10 09:58] VITALS: BP 123/85; PULSE 80; RESP 18; TEMP 36.2; O2SAT 98
[2022-10-10] MEDS: Lactated Ringers 1,000 ML 80 ML IV (10:39)
--- NOTE | 2022-10-10 10:44 | ANES.PREOP_ITS ---
General Info Date of Service Date Performed: 10/10/22 Height: 5 ft 7 in Weight: 98.6 kg Body Mass Index (BMI): 34.0 Surgical Procedure: Operation Date: 10/10/22 10:25 Proposed Procedure Side Surgeon p Exam Under Anesthesia Tom Aguilar MD Meds Allergies and Home Medications Allergies Allergy/AdvReac Type Severity Reaction Status Date / Time No Known Allergies Allergy Verified 10/10/22 10:08 Home Medication Medication Instructions Recorded sumatriptan succinate 50 mg tablet 50 mg PO Q2H #90 tabs 03/18/21 (Imitrex) sildenafil 50 mg tablet (Viagra) 50 mg PO DAILY PRN sexual activity 04/25/21 #60 tabs diltiazem HCl 240 mg 240 mg PO DAILY #90 caps 01/04/22 capsule,extended release 24 hr atorvastatin 40 mg tablet (Lipitor) 40 mg PO DAILY #90 tab-caps 03/27/22 apixaban 5 mg tablet 5 mg PO BID #180 tabs 05/24/22 venlafaxine 75 mg tablet,extended 75 mg PO DAILY #90 tabs 05/30/22 release 24 hr losartan 100 mg tablet 100 mg PO DAILY #90 tabs 06/22/22 amlodipine 5 mg tablet 5 mg PO DAILY #90 tabs 07/21/22 lorazepam 1 mg tablet 1 mg PO DAILY PRN anxiety #15 tabs 07/21/22 Current Visit Medications: Current Medications Generic Name Dose Route Start Last Admin Trade Name Freq PRN Reason Stop Dose Admin Ringer's Solution 1,000 mls @ 80 mls/hr 10/10/22 06:00 10/10/22 10:39 IV 11/08/22 23:59 80 mls/hr INFUSION COLLEEN Administration IV Miscellaneous Supplies 1 each 10/10/22 06:00 Iv Access IV 11/08/22 23:59 DIRECTED COLLEEN Morphine Sulfate 4 mg 10/09/22 20:35 Morphine 4 Mg/Ml Syr IVP Q1H PRN PRN Sodium Chloride 0 ml 10/10/22 06:00 Normal Saline Flush 10 Ml Syr IV 11/08/22 23:59 PRN PRN Sodium Chloride 0 ml 10/10/22 06:00 Normal Saline 10 Ml Vial IJ 11/08/22 23:59 DIRECTED PRN Sterile Water 0 ml 10/10/22 06:00 Water,Injection,Sterile 10 Ml Vial IJ 11/08/22 23:59 DIRECTED PRN Tramadol HCl 100 mg 10/09/22 20:35 Tramadol 50 Mg Tab PO Q6H PRN PRN Pain PFSH Active Problems Active Problems: Problem Status Onset Code Anal fistula K60.3 Anal fissure K60.2 Anal pain K62.89 Essential hypertension I10 Paroxysmal atrial fibrillation I48.0 FREDI (obstructive sleep apnea) G47.33 Hyperlipidemia E78.5 Chronic anticoagulation Z79.01 Headache R51.9 Generalized anxiety disorder F41.1 Lumbosacral spondylosis without myelopathy M47.817 Meralgia paresthetica of right side G57.11 Sensorineural hearing loss (SNHL) of left ear with unrestricted hearing of right ear H90.42 Irritable bowel syndrome K58.9 Male erectile disorder N52.9 Internal hemorrhoids K64.8 Medical History Medical History COVID-19 virus infection (~10/2021) CVA (cerebral vascular accident) (11/20/16) Medical History Comments:: 10/09/22 - Pt reports occasional PONV Surgical History Surgical History H/O vasectomy (03/18/10) S/P ablation of atrial fibrillation (02/05/17) Ablation and pulmonary vein isolation S/P colonoscopy (05/16/18) S/P left inguinal hernia repair S/P right knee arthroscopy (~1988) S/P shoulder surgery (08/26/08) Right Tobacco Smoking/Tobacco Use Status: Current every day Tobacco Type: smokeless tobacco Smokeless tobacco user: chewing tobacco Passive smoking exposure: Yes Second hand exposure: Yes Counseling given: patient declined Alcohol Alcohol Intake: former Details: quit chewing tobacco three days ago. Substance Use Substance use: Never Substance use type: does not use Vital Signs and Lab Results Vital Signs Most Recent Vital Signs in EMR: Most Recent Vital Signs Temp Pulse Resp BP Pulse Ox 36.2 C L 80 18 123/85 98 10/10/22 09:58 10/10/22 09:58 10/10/22 09:58 10/10/22 09:58 10/10/22 09:58 Lab Results Blood Type / Crossmatch: No Data to Display Complete Blood Count: White Blood Count 7.29 10^3/uL (4.4-10.8) 09/21/22 11:15 Red Blood Count 4.49 10^6/uL (4.36-5.78) 09/21/22 11:15 Hemoglobin 14.6 g/dL (13.5-17.5) 09/21/22 11:15 Hematocrit 41.0 % (40.0-50.0) 09/21/22 11:15 Platelet Count 278 10^3/uL (130-400) 09/21/22 11:15 Complete Metabolic Panel: Sodium 138 mmol/L (136-145) 09/21/22 11:15 Potassium 3.4 mmol/L (3.5-5.1) L 09/21/22 11:15 Chloride 102 mmol/L (98-107) 09/21/22 11:15 Carbon Dioxide 26.7 mmol/L (21.0-32.0) 09/21/22 11:15 BUN 20 mg/dL (7-18) H 09/21/22 11:15 Creatinine 1.0 mg/dL (0.70-1.30) 09/21/22 11:15 Est GFR (CKD-EPI 2020) 90.00 (mL/min/1.73m2) 09/21/22 11:15 Calcium 9.0 mg/dL (8.5-10.1) 09/21/22 11:15 Albumin 4.4 g/dL (3.4-5.0) 09/21/22 11:15 Glucose 82 mg/dL (74-106) 09/21/22 11:15 Liver Function Panel: Alanine Aminotransferase (ALT/SGPT) 19 U/L (16-63) 09/21/22 11: 15 Aspartate Amino Transf (AST/SGOT) 16 U/L (15-37) 09/21/22 11:15 Coagulation Panel: No Data to Display Cardiac Panel: No Data to Display Arterial Blood Gas: No Data to Display Venous Blood Gas: No Data to Display Pancreas Panel: No Data to Display Thyroid Panel: No Data to Display Infectious Disease: No Data to Display Blood Cultures: No Data to Display Toxicology Panel: No Data to Display Imaging and Studies Imaging and Studies Study information below may be from another EMR and interpreted by another provider. Please see original notes in EMR for more complete details. EKG Summary: 04/05/2021: Exam: Resting ECG Reason for Exam: paliptation Patient Location: E HR:84 bpm ECG Measurements Heart Rate 84 AXIS SD 146 P 16 QRSd 99 QRS 28 QT 374 T37 QTc 442 Conclusion Sinus rhythm...normal P axis, V-rate 60- 99 I have reviewed and I agree with the emergency room physician's ECG interpretation. Electronically signed by: <Electronically signed by Yan Keenan M.D. in [place]> 04/07/21 1113 Stress Test Summary: 10/07/2018: Impressions: Normal perfusion by [id number] Sestamibi [facility]. Summary: 1. Myocardial perfusion imaging: No myocardial perfusion defects noted. 2. The calculated left ventricular ejection fraction after stress: 55%. 3. Stress: The target heart rate was achieved. Pulmonary Function Summary: 04/29/2018: INTERPRETATION SPIROMETRY: Spirometry shows mild obstructive airways disease with no significant bronchodilator response. LUNG VOLUMES: Lung volumes show no evidence of restriction. DIFFUSION CAPACITY: Normal. AIRWAY RESISTANCE: Normal. IMPRESSION: Mild obstructive airways disease with no significant bronchodilator response. When this study was compared to previous one from 01/24/10 and 12/28/11, the patient initially had a stable lung volume measurement but from 2011 there is an 860 cc. decline in FVC, FEV-1 has declined by 750 cc. Anesthesia Assessment and Plan Anesthesia History Personal History: No History of Anesthesia Complications Family History: No Family History of Anesthesia Complications Exercise Tolerance Exercise Tolerance: Metabolic Equivalents>4 Pertinent Negatives Pertinent Negatives: No Symptoms of GERD, No Major Cardiovascular Symptoms or Complaints and Other (Hx stroke residual ringing in left ear. Fredi wears cpap ) Cardiac & Pulmonary Exam Cardiac Exam: Normal S1/S2 Heart Sounds Pulmonary Exam: Clear Bilateral Breath Sounds Implantable Cardiac Device Does patient have a Pacemaker or an ICD?: No Airway Exam Known Difficult Airway: No Mallampati Class: 4 Mouth Opening: Normal (> 3cm) Thyromental Distance: Less than 3 cm Facial Hair: Full [place] Neck Range of Motion: Full ROM Neck Circumference: Thick Teeth Condition: Normal Dentition Airway Comments: Lengthy discussion regarding potential for awake fiberoptic intubation as back up plan given patient's airway examination. ASA Classification ASA Score: ASA 3 Emergency Case?: No NPO Status NPO Status: NPO Clears >2 hours, Solids >8 hours Anesthesia Plan Resuscitation Status: Full Code Anesthesia Technique: Spinal Anesthesia Airway Planned: Natural Airway Pain Management: Intrathecal Analgesia Monitors Used: Standard Monitors
[2022-10-10 10:49] VITALS: BMI 34.0
[2022-10-10] MEDS: Bupivacaine 0.5% Pres-Free W/EPI 30 ML VIAL (12:02)
[2022-10-10 12:03] VITALS: BP 94/55; PULSE 82; RESP 16; TEMP 36.4; O2SAT 96
[2022-10-10] MEDS: Lidocaine 2% Jelly 6 ML SYR (12:03)
[2022-10-10 12:35] VITALS: BP 111/78; PULSE 73; RESP 16; TEMP 36.6; O2SAT 97
[2022-10-10 13:14] VITALS: BP 110/63; PULSE 82; RESP 16; TEMP 36.4; O2SAT 97
--- NOTE | 2022-10-10 13:21 | W.ANESPOSTOP ---
Postoperative Evaluation Date, Time and Location Date Performed: 10/10/22 Time Performed: 13:21 Patient Location: Day Surgery Unit Vital Signs Most Recent Imported Vital Signs: Most Recent Vital Signs Temp Pulse Resp BP Pulse Ox 36.4 C L 82 16 110/63 97 10/10/22 13:14 10/10/22 13:14 10/10/22 13:14 10/10/22 13:14 10/10/22 13:14 Pain Score Most Recent Pain Score: Most Recent Pain Score Pain Level 1 10/10/22 13:14 Assessment Mental Status: Awake (Alert & Oriented to Patient Baseline) Airway and Respiratory Function: Patent airway with normal (patient baseline) respiratory exam Cardiovascular Function: Hemodynamically Stable Hydration Status: Adequately Hydrated Nausea & Vomiting: No Nausea or Vomiting Pain: Pain is tolerable per patient Peripheral Nerve Block: Patient did not receive a nerve block
[2022-10-10 13:35] VITALS: BP 122/71; PULSE 84; RESP 16; TEMP 36.5; O2SAT 96
[2022-10-10] MEDS: traMADol 50 MG TAB 100 MG PO (13:39)
[2022-10-10 13:57] VITALS: BP 109/78; PULSE 83; RESP 16; TEMP 36.4; O2SAT 98
== END 2022-10-10 14:05 | disposition home or self-care (01) ==
PROVIDERS: PCP Nurse Practitioner Family; Visit Provider Surgery
PROC: (CPT 45990; principal; 2022-10-10 10:15)
DX: K60.5 Anorectal fistula (principal)
CPT/HCPCS: 45990; J1100; J1885; J2250; J2405; J2704; J3010

== ENCOUNTER 2023-05-03 08:54 | Outpatient (CLI) | payer OTHER, SELFPAY ==
[2023-05-03 12:22] LABS: Abs Immature Grans 0.02 10^3/uL (0.0-0.06); Absolute Basophil Count 0.05 10^3/uL (0.0-0.2); Absolute Eosinophil Count 0.13 10^3/uL (0.0-0.7); Absolute Lymphocyte Count 1.75 10^3/uL (1.2-3.4); Absolute Monocyte Count 0.55 10^3/uL (0.1-0.8); Basophils % 0.9; Eosinophils % 2.3; HCT 41.8 % (40.0-50.0); HGB 14.4 g/dL (13.5-17.5); Immature Grans % 0.4; Lymphocytes % 31.3; MCH 31.9 pg (27.0-33.0); MCHC 34.4 % (32.0-36.0); MCV 93 fL (80-95); Monocytes % 9.8; Neutrophils % 55.3; Platelet Count 254 10^3/uL (130-400); RBC 4.52 10^6/uL (4.36-5.78); RDW 12.4 % (11.8-14.1); RDW-SD 42.4 fL
[2023-05-03 12:33] LABS: Bilirubin Negative (Negative); Blood Small (Negative); Clarity Clear (Clear); Glucose Negative (Negative); Ketones Negative (Negative); Leukocyte Esterase Negative (Negative); Nitrite Negative (Negative); Specific Gravity 1.015 (1.005-1.025); Urobilinogen 0.2 mg/dL (Up to 0.2); pH 6.5 (5-8)
[2023-05-03 12:40] LABS: Bacteria Negative HPF (Negative); C & S Indicated? No; Casts Negative LPF (Negative); Crystals Negative HPF (Negative); Epithelial Cells Negative HPF (Negative); Mucus Negative (Negative); WBC 0-2 HPF (0-5)
[2023-05-03 12:43] LABS: ALT 28 U/L (16-63); AST 16 U/L (15-37); Albumin 4.2 g/dL (3.4-5.0); Alkaline Phosphatase 72 U/L (46-116); Anion Gap 6.9 mmol/L (3-11); BUN 20 mg/dL (7-18); Bilirubin, Total 0.4 mg/dL (0.2-1.0); CO2 30.1 mmol/L (21.0-32.0); CREATININE 1.1 mg/dL (0.70-1.30); Calcium 8.9 mg/dL (8.5-10.1); Chloride 103 mmol/L (98-107); Estimated GFR 79.77 (mL/min/1.73m2); Glucose 110 mg/dL (74-106); Potassium 3.6 mmol/L (3.5-5.1); Sodium 140 mmol/L (136-145); Total Protein 7.4 g/dL (6.4-8.2)
== END 2023-05-03 08:55 | disposition home or self-care (01) ==
LOC: LOS 08:54
PROVIDERS: PCP Nurse Practitioner Family; Referring Provider Nurse Practitioner Family; Visit Provider Nurse Practitioner Family
DX: K92.1 Melena (principal); R31.9 Hematuria, unspecified
CPT/HCPCS: 36415; 80053; 81003; 81015; 85025

== ENCOUNTER 2023-06-12 07:57 | Outpatient (CLI) | payer OTHER, SELFPAY ==
--- NOTE | 2023-06-12 07:45 | RT.EKG_ITS ---
APPROVED REPORT Exam: Resting ECG Reason for Exam: afib Patient Location: O HR:87 bpm ECG Measurements Heart Rate 87 AXIS NM 147 P 30 QRSd 103 QRS 59 QT 361 T 29 QTc 435 Conclusion Sinus rhythm...normal P axis, V-rate 50- 99 Normal Electrocardiogram
== END 2023-06-12 07:58 | disposition home or self-care (01) ==
LOC: DI.CARD 07:58
PROVIDERS: PCP Nurse Practitioner Family; Visit Provider Internal Medicine Cardiovascular Disease
DX: I48.0 Paroxysmal atrial fibrillation (principal)
CPT/HCPCS: 93010

== ENCOUNTER 2023-09-03 05:59 | Day surgery (SDC) | payer OTHER, SELFPAY ==
[2023-09-03] VITALS (8 sets, daily range): BP systolic 78–118; BP diastolic 47–74; PULSE 74–78; RESP 16–19; TEMP 36.4–36.6; O2SAT 74–98; BMI 35.2
[2023-09-03] MEDS: Lactated Ringers 1,000 ML 80 ML IV (06:44)
--- NOTE | 2023-09-03 07:00 | DI.RAD_ITS ---
Exam(s) XR RETROGRADE IN OR EXAM: XR RETROGRADE IN OR CLINICAL HISTORY: MICROSCOPIC HEMATURIA TECHNIQUE: 2D and realtime digital imaging was performed. CONTRAST MATERIAL: Refer to procedure report. COMPARISON: No exams were available for comparison FINDINGS: Fluoroscopy was provided for Dr. Dukes during the performance of a retrograde evaluation of the cesar l collecting system. Please refer to the procedure report for complete details. Ka,r=8.08 mGy IMPRESSION: RADIATION DOSE DELIVERED:
--- NOTE | 2023-09-03 07:03 | W.PM.HP.N ---
Date of service: 09/03/23 Time of Service: 07:03 Assessment and Plan Assessment and plan (1) Microscopic hematuria: Status: Chronic Assessment and plan: We will complete his hematuria workup with a cystoscopy and bilateral retrograde pyelogram. If we find any mucosal abnormality, we will be prepared to biopsy or perform TUR. History of Present Illness History of Present Illness Chief Complaint: Microscopic hematuria Narrative: This is a 52-year-old gentleman who has a finding of microscopic hematuria. He was evaluated with a renal ultrasound. No renal masses or stones were identified. He presents now for cystoscopy with retrograde pyelogram to complete his hematuria workup. He has not seen any gross hematuria. Review of Systems Narrative: No fevers or chills No vision change or dysphasia No diabetes or thyroid dysfunction Sleep apnea. No shortness of breath, cough or hemoptysis No chest pain IBS. No hepatitis, ulcers, jaundice No seizures, strokes or peripheral neuropathy Chronic anticoagulation. No anemia Chronic back pain. No gout PFSH All Active Problems Paroxysmal atrial fibrillation (Chronic) Ablation, pulmonary vein isolation in January 2017 at [facility] (obstructive sleep apnea) (Chronic) Original PSG 01/13/17; CPAP Essential hypertension (Chronic) Chronic anticoagulation (Chronic) Eliquis Hyperlipidemia (Chronic) Anal fistula (Chronic) Anal pain (Chronic) Irritable bowel syndrome (Chronic) Lumbosacral spondylosis without myelopathy (Chronic) Now seeing [facility] Achilles tendinitis of both lower extremities (Chronic) Headache (Chronic) Generalized anxiety disorder (Chronic) Microscopic hematuria (Chronic) Sensorineural hearing loss (SNHL) of left ear with unrestricted hearing of right ear (Chronic) Umbilical hernia (Chronic) Right inguinal hernia (Chronic) Chewing tobacco use (Chronic) Male erectile disorder (Chronic) Internal hemorrhoids (Chronic) Medical History COVID-19 virus infection (~10/2021) CVA (cerebral vascular accident) (11/20/16) Surgical History H/O vasectomy (03/18/10) S/P colonoscopy (05/16/18) S/P shoulder surgery (08/26/08) Right S/P right knee arthroscopy (~1988) S/P left inguinal hernia repair S/P ablation of atrial fibrillation (02/05/17) Ablation and pulmonary vein isolation Family History Mother Presence of permanent cardiac pacemaker Atrial fibrillation Heart disease Type 2 diabetes mellitus Father Hypertension Sister Type 2 diabetes mellitus Son No problems noted. Son No problems noted. Paternal Grandmother , at 84 of dementia Dementia Paternal Grandfather , At 72 No problems noted. Maternal Grandmother No problems noted. Maternal Grandfather No problems noted. Paternal Uncle Colon cancer Paternal Aunt Colon cancer Social History Smoking/Tobacco Use Status: Never Smokeless tobacco user: chewing tobacco Second Hand Exposure: Yes Counseling given: patient declined Smoking risk assessment performed?: Yes Alcohol Intake: former Details: quit chewing tobacco three days ago. Drug use: Never Substance use type: does not use Caregiver/Support person: No Household members: spouse Housing: house Communication Needs: None current occupation: [employer] Pets and animals: Yes Pets and animals: cat(s) and dog(s) Sexually active: Yes Do you think of yourself as: straight/heterosexual Current gender identity: male What is your relationship status?: How often do you talk on the phone with friends or family?: twice per week How often do you get together with friends or relatives?: once per week How often do you attend mandaen or restorationism services?: decline to answer Do you belong to any clubs or organized social groups?: no Panel score (0-1 are the most socially isolated patients): 2 What type of physical activity do you participate in: none Duration: decline to answer Frequency: decline to answer Anna/Buddhist: No preference Special anna needs: No Seatbelt use: always Helmet use: No Drive intox or ride w/intox route delivery driver: No Do you feel safe at home: Yes Do you feel safe in your relationship?: Yes Meds Allergies and Home Medications Allergies Allergy/AdvReac Type Severity Reaction Status Date / Time No Known Allergies Allergy Verified 09/03/23 06:08 Home Medications Medication Instructions Recorded Confirmed Type sumatriptan succinate 50 mg tablet 50 mg PO Q2H #90 tabs 03/18/21 09/03/23 Rx (Imitrex) lorazepam 1 mg tablet 1 mg PO DAILY PRN anxiety #15 tabs 07/21/22 09/03/23 Rx diltiazem HCl 240 mg 240 mg PO DAILY #90 caps 01/08/23 09/03/23 Rx capsule,extended release 24 hr atorvastatin 40 mg tablet (Lipitor) 40 mg PO DAILY #90 tab-caps 03/28/23 09/03/23 Rx sildenafil 50 mg tablet (Viagra) 50 mg PO DAILY PRN sexual activity 03/29/23 09/03/23 Rx #60 tabs venlafaxine 75 mg tablet,extended 75 mg PO DAILY #90 tabs 04/18/23 09/03/23 Rx release 24 hr amlodipine 5 mg tablet 5 mg PO DAILY #90 tabs 05/25/23 09/03/23 Rx apixaban 5 mg tablet 5 mg PO BID #180 tabs 05/25/23 09/03/23 Rx losartan 100 mg tablet 100 mg PO DAILY #90 tabs 05/25/23 09/03/23 Rx Exam Const General: cooperative Neck Neck: supple Resp Effort & Inspection: normal respiratory effort Auscultation: clear to auscultation bilaterally Cardio Rate: regular rate Rhythm: regular rhythm GI Palpation: soft and no masses Neuro General: patient alert, patient awake and patient oriented x3 Results Last Vital Signs Temp 36.4 C L 09/03/23 06:28 Pulse 75 09/03/23 06:28 Resp 16 09/03/23 06:28 BP 118/74 09/03/23 06:28 Pulse Ox 96 09/03/23 06:28 Time Spent Time spent with Patient: <40 minutes Time was spent: other
--- NOTE | 2023-09-03 07:11 | ANES.PREOP_ITS ---
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 Kd Dukes MD Meds Allergies and Home Medications Allergies Allergy/AdvReac Type Severity Reaction Status Date / Time No Known Allergies Allergy Verified 09/03/23 06:08 Home Medication Medication Instructions Recorded sumatriptan succinate 50 mg tablet 50 mg PO Q2H #90 tabs 03/18/21 (Imitrex) lorazepam 1 mg tablet 1 mg PO DAILY PRN anxiety #15 tabs 07/21/22 diltiazem HCl 240 mg 240 mg PO DAILY #90 caps 01/08/23 capsule,extended release 24 hr atorvastatin 40 mg tablet (Lipitor) 40 mg PO DAILY #90 tab-caps 03/28/23 sildenafil 50 mg tablet (Viagra) 50 mg PO DAILY PRN sexual activity 03/29/23 #60 tabs venlafaxine 75 mg tablet,extended 75 mg PO DAILY #90 tabs 04/18/23 release 24 hr amlodipine 5 mg tablet 5 mg PO DAILY #90 tabs 05/25/23 apixaban 5 mg tablet 5 mg PO BID #180 tabs 05/25/23 losartan 100 mg tablet 100 mg PO DAILY #90 tabs 05/25/23 Current Visit Medications: Current Medications Generic Name Dose Route Start Last Admin Trade Name Freq PRN Reason Stop Dose Admin Ringer's Solution 1,000 mls @ 80 mls/hr 09/03/23 06:00 09/03/23 06:44 IV 09/30/23 23:59 80 mls/hr INFUSION COLLEEN Administration Cefazolin Sodium/Dextrose 2 gm in 50 mls @ 100 mls/hr 09/03/23 06:00 Ancef Duplex IVPB 09/30/23 23:59 PREOP COLLEEN IV Miscellaneous Supplies 1 each 09/03/23 06:00 Iv Access IV 09/30/23 23:59 DIRECTED COLLEEN Sodium Chloride 0 ml 09/03/23 06:00 Normal Saline Flush 10 Ml Syr IV 09/30/23 23:59 PRN PRN Sodium Chloride 0 ml 09/03/23 06:00 Normal Saline 10 Ml Vial IJ 09/30/23 23:59 DIRECTED PRN Sterile Water 0 ml 09/03/23 06:00 Water,Injection,Sterile 10 Ml Vial IJ 09/30/23 23:59 DIRECTED PRN PFSH Active Problems Active Problems: Problem Status Onset Code Paroxysmal atrial fibrillation I48.0 MARY (obstructive sleep apnea) G47.33 Essential hypertension I10 Chronic anticoagulation Z79.01 Hyperlipidemia E78.5 Anal fistula K60.3 Anal pain K62.89 Irritable bowel syndrome K58.9 Lumbosacral spondylosis without myelopathy M47.817 Achilles tendinitis of both lower extremities M76.61, M76.62 Headache R51.9 Generalized anxiety disorder F41.1 Microscopic hematuria R31.29 Sensorineural hearing loss (SNHL) of left ear with unrestricted hearing of right ear H90.42 Umbilical hernia K42.9 Right inguinal hernia K40.90 Chewing tobacco use Z72.0 Male erectile disorder N52.9 Internal hemorrhoids K64.8 Medical History Medical History COVID-19 virus infection (~10/2021) CVA (cerebral vascular accident) (11/20/16) Medical History Comments:: 10/09/22 - Pt reports occasional PONV Surgical History Surgical History H/O vasectomy (03/18/10) S/P colonoscopy (05/16/18) S/P shoulder surgery (08/26/08) Right S/P right knee arthroscopy (~1988) S/P left inguinal hernia repair S/P ablation of atrial fibrillation (02/05/17) Ablation and pulmonary vein isolation Tobacco Smoking/Tobacco Use Status: Never Smokeless tobacco user: chewing tobacco Passive smoking exposure: Yes Second hand exposure: Yes Counseling given: patient declined Alcohol Alcohol Intake: former Details: quit chewing tobacco three days ago. Substance Use Substance use: Never Substance use type: does not use Vital Signs and Lab Results Vital Signs Most Recent Vital Signs in EMR: Most Recent Vital Signs Temp Pulse Resp BP Pulse Ox 36.4 C L 75 16 118/74 96 09/03/23 06:28 09/03/23 06:28 09/03/23 06:28 09/03/23 06:28 09/03/23 06:28 Lab Results Blood Type / Crossmatch: No Data to Display Complete Blood Count: No Data to Display Complete Metabolic Panel: No Data to Display Liver Function Panel: No Data to Display Coagulation Panel: No Data to Display Cardiac Panel: No Data to Display Arterial Blood Gas: No Data to Display Venous Blood Gas: No Data to Display Pancreas Panel: No Data to Display Thyroid Panel: No Data to Display Infectious Disease: No Data to Display Blood Cultures: No Data to Display Toxicology Panel: No Data to Display Imaging and Studies Imaging and Studies Study information below may be from another EMR and interpreted by another provider. Please see original notes in EMR for more complete details. EKG Summary: 04/05/2021: Exam: Resting ECG Reason for Exam: paliptation Patient Location: E HR:84 bpm ECG Measurements Heart Rate 84 AXIS [place] 146 P 16 QRSd 99 QRS 28 QT 374 T37 QTc 442 Conclusion Sinus rhythm...normal P axis, V-rate 60- 99 I have reviewed and I agree with the emergency room physician's ECG interpretation. Electronically signed by: <Electronically signed by Yan Keenan M.D. in [place]> 04/07/21 1113 Stress Test Summary: 10/07/2018: Impressions: Normal perfusion by [id number] [facility]. Summary: 1. Myocardial perfusion imaging: No myocardial perfusion defects noted. 2. The calculated left ventricular ejection fraction after stress: 55%. 3. Stress: The target heart rate was achieved. Pulmonary Function Summary: 04/29/2018: INTERPRETATION SPIROMETRY: Spirometry shows mild obstructive airways disease with no significant bronchodilator response. LUNG VOLUMES: Lung volumes show no evidence of restriction. DIFFUSION CAPACITY: Normal. AIRWAY RESISTANCE: Normal. IMPRESSION: Mild obstructive airways disease with no significant bronchodilator response. When this study was compared to previous one from 01/24/10 and 12/28/11, the patient initially had a stable lung volume measurement but from 2011 there is an 860 cc. decline in FVC, FEV-1 has declined by 750 cc. Anesthesia Assessment and Plan Anesthesia History Personal History: No History of Anesthesia Complications Family History: No Family History of Anesthesia Complications Exercise Tolerance Exercise Tolerance: Metabolic Equivalents>4 Pertinent Negatives Pertinent Negatives: No Symptoms of GERD, No Major Cardiovascular Symptoms or Complaints and No Major Pulmonary Symptoms or Complaints Cardiac & Pulmonary Exam Cardiac Exam: Normal S1/S2 Heart Sounds Pulmonary Exam: Clear Bilateral Breath Sounds Implantable Cardiac Device Does patient have a Pacemaker or an ICD?: No Airway Exam Known Difficult Airway: No Mallampati Class: 3 Mouth Opening: Normal (> 3cm) Thyromental Distance: Less than 3 cm Neck Range of Motion: Full ROM Neck Circumference: Thick Teeth Condition: Normal Dentition ASA Classification ASA Score: ASA 3 Emergency Case?: No NPO Status NPO Status: NPO Clears >2 hours, Solids >8 hours Anesthesia Plan Resuscitation Status: Full Code Anesthesia Technique: MAC Anesthesia Airway Planned: Natural Airway Monitors Used: Standard Monitors
[2023-09-03] MEDS: ceFAZolin 2 GM/50 ML BAG IVPB (07:30)
[2023-09-03] MEDS: Omnipaque 300 MG/ML 50 ML BTL (07:43)
[2023-09-03] MEDS: Lidocaine 2% Jelly 6 ML SYR (07:43)
--- NOTE | 2023-09-03 07:52 | W.PM.DSUDISC ---
Date of service: 09/03/23 Time of Service: 07:52 Discharge Plan Disposition Patient Disposition: Home Condition: Stable Discharge Details Reason For Visit: cystoscopy Attending Provider: Kd Dukes Primary Care Provider: Kena Rebollar Home Meds and New Rx's Prescriptions: No Action apixaban 5 mg tablet 5 mg PO BID Qty: 180 3RF losartan 100 mg tablet 100 mg PO DAILY Qty: 90 3RF amlodipine 5 mg tablet 5 mg PO DAILY Qty: 90 3RF sumatriptan succinate [Imitrex] 50 mg tablet 50 mg PO Q2H Qty: 90 0RF Rx Instructions: take 1 tab at onset of headache; if no relief may repeat 1 tab after at least 2 hrs; max = 4 tabs/24 hr PO lorazepam 1 mg tablet 1 mg PO DAILY PRN (Reason: anxiety) Qty: 15 0RF Rx Instructions: Take 1 tablet once a day as needed for increased anxiety diltiazem HCl 240 mg capsule,extended release 24hr 240 mg PO DAILY Qty: 90 3RF Rx Instructions: Take 1 tablet once a day atorvastatin [Lipitor] 40 mg tablet 40 mg PO DAILY Qty: 90 3RF sildenafil [Viagra] 50 mg tablet 50 mg PO DAILY PRN (Reason: sexual activity) Qty: 60 0RF Rx Instructions: administer 30 minutes to 4 hours before activity venlafaxine 75 mg tablet extended release 24hr 75 mg PO DAILY Qty: 90 3RF Discharge Instructions Additional Instructions: may restart anticoagulants 09/04 followup appt 1 year for urinalysis Activity:: Activity as Tolerated Shower/Bathe:: 24 hours Diet:: As Tolerated Discharge Orders Discharge Orders: Discharge Order (Routine); Ordered 09/03/23 Ordered By: Kd Dukes DS: Diagnosis Discharge Diagnosis (1) Microscopic hematuria: Status: Chronic
--- NOTE | 2023-09-03 07:54 | ROE_ITS ---
Date of service: 09/03/23 Time of Service: 07:54 Operative Note Operative Note DATE OF PROCEDURE: 09/03/23 PRE-OP DIAGNOSIS: microscopic hematuria POST-OP DIAGNOSIS: same PROCEDURE: cystoscopy with bilateral retrograde pyelogram SURGEON: Kd Dukes ANESTHESIA TYPE: Local By Surgeon and General:No Airway Refer to Anesthesia Record ESTIMATED BLOOD LOSS: 0 PATHOLOGY: none sent COMPLICATIONS: None Patient was transported to: PACU Patient's condition: stable Implants: none Indications: This is a 52-year-old gentleman who has a finding of microscopic hematuria. He has no gross hematuria but we found greater than 3-5 red blood cells per high- power field microscopically. He was evaluated with a renal ultrasound which showed no significant renal mass. He presents now for cystoscopy with retrograde pyelogram to complete his hematuria workup Findings: no papillary or nodular bladder lesions normal bilateral retrograde pyelogram Procedure Description: The patient was given preoperative IV antibiotics and brought to the operating room on 09/03/2023. After successful induction of general anesthesia without intubation, he was placed in the dorsal lithotomy position. His genitalia was prepped and draped. 2% Xylocaine jelly was instilled into the urethra to act as a local anesthetic. The 22 [place] rigid cystoscope was passed through the urethra into the bladder. The urethra and bladder were inspected with the 30 degree lens. The pendulous and bulbar urethra appeared normal with no strictures. The membranous urethra showed some erythema but no significant mass. The prostatic urethra showed lateral lobe enlargement but no significant median lobe. The bladder neck was entered and the bladder mucosa was inspected. Both ureteral orifices were identified. They appeared normal in configuration and location. No gross blood could be seen coming from either orifice. Each orifice was cannulated with a 5 [place]ian access catheter. Retrograde pyelograms were obtained by injecting Omnipaque through the access catheter under fluoroscopic guidance. Both ureters and collecting systems appeared normal with no filling defects. Both sides drained promptly on a 5-minute drainage film. The remainder of the bladder was inspected using both the 30 and 70 degree lens. No papillary or nodular lesions were seen. No erythematous patches of mucosa were identified. The bladder was emptied and the cystoscope was removed. Digital rectal exam was then performed and the prostate was smooth with no nodules. The patient tolerated this procedure well with no complications. He was taken to the recovery room in stable condition.
[2023-09-03] MEDS: ePHEDrine 25 MG/5 ML Syringe IVP ×2 (08:03→08:09)
--- NOTE | 2023-09-03 09:18 | W.ANESPOSTOP ---
Postoperative Evaluation Date, Time and Location Date Performed: 09/03/23 Time Performed: 09:18 Patient Location: Day Surgery Unit Vital Signs Most Recent Imported Vital Signs: Most Recent Vital Signs Temp Pulse Resp BP Pulse Ox 36.6 C 75 16 94/55 L 96 09/03/23 08:13 09/03/23 08:28 09/03/23 08:28 09/03/23 08:28 09/03/23 08:28 Pain Score Most Recent Pain Score: Most Recent Pain Score Pain Level 0 09/03/23 08:28 Assessment Mental Status: Awake (Alert & Oriented to Patient Baseline) Airway and Respiratory Function: Patent airway with normal (patient baseline) respiratory exam Cardiovascular Function: Hemodynamically Stable Hydration Status: Adequately Hydrated Nausea & Vomiting: No Nausea or Vomiting Pain: Pain is tolerable per patient (burning on urination) Peripheral Nerve Block: Patient did not receive a nerve block
[2023-09-03] MEDS: Phenazopyridine 200 MG TAB PO (09:21)
== END 2023-09-03 06:00 | disposition home or self-care (01) ==
PROVIDERS: PCP Nurse Practitioner Family; Visit Provider Urology
PROC: 0TBB8ZZ Excision of Bladder, Via Natural or Artificial Opening Endoscopic (ICD-10-PCS; CPT 52005; principal; 2023-09-03 07:30)
DX: R31.29 Other microscopic hematuria (principal)
CPT/HCPCS: 52005; 74420; J0690; J1885; J2001; J2250; J2405; Q9967

== ENCOUNTER 2024-05-29 03:34 | Outpatient (CLI) | payer OTHER, SELFPAY ==
[2024-05-29 12:38] LABS: HCT 40.6 % (40.0-50.0); MCH 32.5 pg (27.0-33.0); MCHC 34.5 % (32.0-36.0); MCV 94 fL (80-95); MPV 9.8 fL (8.0-11.0); Platelet Count 272 10^3/uL (130-400); RBC 4.31 10^6/uL (4.36-5.78); RDW 12.4 % (11.8-14.1); RDW-SD 43.3 fL
[2024-05-29 12:42] LABS: Anion Gap 8.4 mmol/L (3-11); BUN 18 mg/dL (7-18); CO2 27.6 mmol/L (21.0-32.0); CREATININE 1.1 mg/dL (0.70-1.30); Calcium 8.9 mg/dL (8.5-10.1); Chloride 103 mmol/L (98-107); Estimated GFR 79.28 (mL/min/1.73m2); Glucose 82 mg/dL (74-106); Potassium 3.3 mmol/L (3.5-5.1); Sodium 139 mmol/L (136-145)
[2024-05-29 18:41] LABS: PSA, Screening 0.4 ng/mL (<=3.5)
[2024-05-29 19:21] LABS: Hepatitis C Ab w Rflx HCV PCR Negative (Negative)
[2024-05-29 19:29] LABS: HBs Antibody, Quant 4.6 mIU/mL (See Note); Hep B Surface Ab Negative (See Note); Hepatitis B Core Antibody Negative (Negative); Hepatitis B Surface Antigen Negative (Negative)
[2024-05-29 19:42] LABS: HIV-1/2 Ag & Ab Screen Negative (Negative)
== END 2024-05-29 03:35 | disposition home or self-care (01) ==
LOC: LOS 03:34
PROVIDERS: PCP Nurse Practitioner Family; Referring Provider Nurse Practitioner Family; Visit Provider Nurse Practitioner Family
DX: I48.0 Paroxysmal atrial fibrillation (principal); I10 Essential (primary) hypertension; Z11.59 Encounter for screening for other viral diseases; Z12.5 Encounter for screening for malignant neoplasm of prostate; Z11.4 Encounter for screening for human immunodeficiency virus [HIV]
CPT/HCPCS: 36415; 80048; 84153; 85027; 86704; 86706; 86803; 87340; 87389

== ENCOUNTER 2024-05-31 06:39 | Emergency (ER) | payer OTHER, SELFPAY ==
[2024-05-31] VITALS (52 sets, daily range): BP systolic 95–171; BP diastolic 58–97; PULSE 50–143; RESP 6–27; O2SAT 93–99
--- NOTE | 2024-05-31 06:30 | RT.EKG_ITS ---
APPROVED REPORT Exam: Resting ECG Reason for Exam: chest pain Patient Location: E HR:119 bpm ECG Measurements Heart Rate 119 AXIS RI [id number] P [id number] QRSd 106 QRS 74 QT 346 T -30 QTc 487 Conclusion Atrial fibrillation with RVR, rate 119 Q wave lead III, unchanged from priors Inf T-wave inversions, likely rate related No STEMI Compared to prior, A-fib has replaced sinus rhythm, and the rate has increased
--- NOTE | 2024-05-31 06:45 | DI.RAD_ITS ---
Exam(s) XR PORTABLE CHEST AP EXAM: XR PORTABLE CHEST AP CLINICAL HISTORY: CP TECHNIQUE: 2D digital imaging was performed. COMPARISON: CR XR CHEST 2V PA LATERAL from 04/05/2021 FINDINGS: Exam limited by poor pulmonary inflation and under penetration. LUNGS: Grossly clear. No pleural abnormality seen. HEART: Mildly enlarged. AORTA: Normal diameter. BONES: Unremarkable for age. Soft tissues: Unremarkable. IMPRESSION: Limited exam. No acute findings. DATA REPOSITORY: RADIATION DOSE DELIVERED:
[2024-05-31 07:00] LABS: Abs Immature Grans 0.05 10^3/uL (0.0-0.06); Absolute Basophil Count 0.08 10^3/uL (0.0-0.2); Absolute Lymphocyte Count 3.58 10^3/uL (1.2-3.4); Absolute Monocyte Count 0.96 10^3/uL (0.1-0.8); Absolute Neutrophil Count 6.08 10^3/uL (1.2-6.7); Basophils % 0.7 %; Eosinophils % 0.6 %; HCT 42.3 % (40.0-50.0); HGB 14.7 g/dL (13.5-17.5); Immature Grans % 0.5 %; Lymphocytes % 33.1 %; MCH 32.6 pg (27.0-33.0); MCHC 34.8 % (32.0-36.0); MCV 94 fL (80-95); MPV 9.7 fL (8.0-11.0); Monocytes % 8.9 %; Neutrophils % 56.2 %; Platelet Count 282 10^3/uL (130-400); RBC 4.51 10^6/uL (4.36-5.78); RDW 12.6 % (11.8-14.1); RDW-SD 43.5 fL; WBC 10.82 10^3/uL (4.4-10.8)
[2024-05-31 07:07] LABS: Absolute Eosinophil Count 0.06 10^3/uL (0.0-0.7)
--- NOTE | 2024-05-31 07:07 | W.ED.GENAD ---
Discharge Plan Disposition Patient Disposition: Home Condition: Stable Discharge Details Clinical Impression: Elevated troponin, Hyperlipidemia, MARY (obstructive sleep apnea), Paroxysmal atrial fibrillation, Chronic anticoagulation, Lumbosacral spondylosis without myelopathy, Essential hypertension, Adverse effect due to correct medicinal substance, properly given Primary Care Provider: Kena Rebollar ED Provider: Zainab Rahman Home Meds and New Rx's Prescriptions: No Action sumatriptan succinate [Imitrex] 50 mg tablet 50 mg PO Q2H Qty: 90 0RF Rx Instructions: take 1 tab at onset of headache; if no relief may repeat 1 tab after at least 2 hrs; max = 4 tabs/24 hr PO lorazepam 1 mg tablet 1 mg PO DAILY PRN (Reason: anxiety) Qty: 15 0RF Rx Instructions: Take 1 tablet once a day as needed for increased anxiety diltiazem HCl 240 mg capsule,extended release 24hr 240 mg PO DAILY Qty: 90 3RF Rx Instructions: Take 1 tablet once a day sildenafil [Viagra] 50 mg tablet 50 mg PO DAILY PRN (Reason: sexual activity) Qty: 60 0RF Rx Instructions: administer 30 minutes to 4 hours before activity prednisone 20 mg tablet 20 mg PO DAILY Qty: 26 0RF Rx Instructions: Take 3 tablets for 5 days then 2 tablets for 4 days then 1 tablet for 3 days atorvastatin [Lipitor] 40 mg tablet 40 mg PO DAILY Qty: 90 3RF venlafaxine 75 mg tablet extended release 24hr 75 mg PO DAILY Qty: 90 3RF losartan 100 mg tablet 100 mg PO DAILY Qty: 90 3RF amlodipine 5 mg tablet 5 mg PO DAILY Qty: 90 3RF apixaban 5 mg tablet 5 mg PO BID Qty: 180 3RF Discharge Instructions Instructions: Atrial Fibrillation (DC) Additional Instructions: You were seen in the emergency department today for evaluation of atrial fibrillation and chest pressure with arm numbness. In our department you had a full physical examination performed, had laboratory studies and were given medication that ultimately converted your heart rhythm back into a normal sinus rhythm. 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 At this time you have declined, which is not inappropriate given that your troponin was improving after you converted out of atrial fibrillation. I have placed an order for an outpatient stress test and echo which need to be done within the next 1 to 2 weeks. Your primary care provider and your manager transplant should be made aware that you are in the emergency department and follow-up on these results and any neck steps. If you develop palpitations, lightheadedness, chest pain, arm numbness, or any other concerning symptoms you need to return to the emergency department at which time we would discuss more aggressive and conservative management for your symptoms. Please stop your prednisone, which may have contributed to your atrial fibrillation episode today. Please continue all your other home medications, including her apixaban and tonight's dose of diltiazem. Thank you for allowing us to be part of your care. HPI General Mode of arrival: ambulatory. Date/Time Provider Initiated Documentation: 05/31/24 06:50. Limitations to Documentation: no limitations. Information obtained by: patient, family and old records reviewed. HPI Narrative: HPI: This is a 53-year-old male patient with a past medical history significant for paroxysmal atrial fibrillation, on Eliquis and long-acting diltiazem, history of hypertension, MARY, hyperlipidemia, and history of stroke without significant residual deficits, presenting for evaluation of palpitations and chest pain. The patient reports that he often will go into A-fib very briefly, can feel that this is happening because he gets lightheadedness, feels a fluttering in his neck, but that these episodes often resolve after several seconds. He did undergo ablation 7 years ago, has never required electrical cardioversion, and is typically well-controlled on his home meds which include diltiazem and Eliquis. He reports that last night he had an episode of atrial fibrillation which she thought resolved, but when he woke up this morning he felt unwell, with lightheadedness, chest pressure, bilateral arm tingling. He reports that this episode has persisted for the last hour and a half, prompting him to seek care. The patient states that he has had a recent change to his medication as he was started on a prednisone taper for lower back pain. He reports that he is currently on the tapering process, taking 2 prednisone per day. He uses caffeine and drinks several diet Cokes per day, has been eating and drinking normally for him. States that he cannot think of any other recent illnesses, injuries, fevers, or changes to his health. The patient currently endorses discomfort but not chest pain, is not experiencing shortness of breath, has no history of heart failure or heart attack, denies leg swelling or pain. He has been taking all of his medications as prescribed but has not yet had his morning dose of Eliquis. Exam: Gen: Awake and alert, in no apparent distress HEENT: Non-icteric sclera, PERRL Neck: Supple Lungs: No apparent respiratory distress, normal respiratory effort. Lung sounds clear and equal bilaterally CV: Appears well perfused, heart with irregularly irregular rhythm, tachycardic rate, strong and symmetrical distal pulses Abdomen: Non-distended, soft MSK: Moves 4 extremities without apparent limitation in ROM. No peripheral edema, no unilateral calf swelling or tenderness Skin: Visualized skin without rashes, cyanosis. Neuro: Normal Gait, no obvious focal deficits or facial asymmetry. Speaks in full, clear sentences. Psych: Appropriate for situation. MDM: This is a 53-year-old male patient presenting for evaluation of chest pressure, lightheadedness, and arm tingling. My differential includes but is not limited to arrhythmia, patient noted to be in A-fib with RVR. Considered metabolic or electrolyte derangement, dehydration, kidney injury, anemia. Considered ACS, including STEMI, NSTEMI, unstable angina. The patient is anticoagulated, is not experiencing DVT symptoms or pleuritic chest pain to significantly increase make concern for pulmonary embolism. I am concerned that this may represent a medication effect, given the recent initiation of prednisone. The patient has no focal pulmonary findings or complaints to increase my concern for pneumothorax, reactive airway disease exacerbation, pneumonia, pulmonary edema, pleural effusion, viral URI. I will obtain laboratory studies to include CBC, CMP, magnesium, troponin, and we obtained an EKG. I will provide the patient with a liter of IV fluids, 2 g of magnesium, and 10 mg of diltiazem for initial management of his symptoms. We will obtain a chest x-ray. The patient reassuringly is neuro intact, without evidence of respiratory failure, anginal chest pain, or hypotension which would require emergent cardioversion. ED Course: I independently interpreted the patient's EKG, which shows an atrial fibrillation with a rapid ventricular response rate in the 110's, some nonspecific T wave inversions in the inferior leads that are likely rate related, with a Q wave in lead III that is unchanged from priors. No evidence of STEMI. Laboratory studies with a mild leukocytosis likely due to steroid use, no anemia or thrombocytopenia. Chemistry panel with a potassium of 3.0 which was repleted orally, no kidney or liver dysfunction. Troponin is noted to be elevated to 76, just below our cutoff for acute injury per our high-sensitivity troponin pathway. A 1 hour troponin was for this reason obtained, which is increased to 113. For this reason I reached out to [facility] cardiology to discuss next [facility] care, and will obtain a 3-hour troponin. Diltiazem was successful in achieving rate control, patient did have a transient decrease in his blood pressure to 90-100 systolic with no associated symptoms. After blood pressure recovery I did provide the patient with a dose of oral diltiazem, 60 mg, which she tolerated well. The patient was noted to spontaneously convert to normal sinus rhythm, with a complete resolution of his lightheadedness and chest pressure. Repeat EKG obtained, read demonstrating Q waves and T wave inversions in lead III but no other ischemic findings. A third troponin was obtained, noted to be slightly downtrending to 106. I discussed the patient's case with [facility] cardiology, who states that a conservative plan of care would be to transfer the patient to [facility] for inpatient stress test and echo. The patient is strongly desiring of discharge to home, and cardiology reports that it would not be unreasonable to pursue rapid outpatient testing including stress test, echo, and cardiology follow-up. The patient has a scheduled visit with a manager transplant at the end of this month, and is understanding of the risks of leaving the hospital, which include ongoing cardiac injury, hemodynamic instability, endorgan damage. The patient was counseled to stop his prednisone, which she has been taking since Sunday and should not require further tapering, which may have contributed to his atrial fibrillation event. He should continue his Eliquis and diltiazem as prescribed, avoid stimulating substances such as nicotine or caffeine, and return to the emergency department immediately with chest pain, dizziness, palpitations, etc. At this time, the patient has had a full medical evaluation and is safe for discharge to home. They are hemodynamically stable, ambulatory, and tolerating PO. They are understanding of the follow-up plan and return precautions. They left our facility without incident. Zainab Rahman MD Related Data Home Medications ?Medication ?Instructions ?Recorded ?Confirmed sumatriptan succinate 50 mg tablet 50 mg PO Q2H #90 tabs 03/18/21 05/31/24 (Imitrex) lorazepam 1 mg tablet 1 mg PO DAILY PRN anxiety #15 tabs 07/21/22 05/31/24 diltiazem HCl 240 mg 240 mg PO DAILY #90 caps 11/30/23 05/31/24 capsule,extended release 24 hr atorvastatin 40 mg tablet (Lipitor) 40 mg PO DAILY #90 tabs 03/26/24 05/31/24 venlafaxine 75 mg tablet,extended 75 mg PO DAILY #90 tabs 04/23/24 05/31/24 release 24 hr amlodipine 5 mg tablet 5 mg PO DAILY #90 tabs 05/21/24 05/31/24 apixaban 5 mg tablet 5 mg PO BID #180 tabs 05/21/24 05/31/24 losartan 100 mg tablet 100 mg PO DAILY #90 tabs 05/21/24 05/31/24 prednisone 20 mg tablet 20 mg PO DAILY #26 tabs 05/28/24 05/31/24 sildenafil 50 mg tablet (Viagra) 50 mg PO DAILY PRN sexual activity 05/28/24 05/31/24 #60 tabs Previous Rx's ?Medication ?Instructions ?Recorded sumatriptan succinate 50 mg tablet 50 mg PO Q2H #90 tabs 03/18/21 (Imitrex) lorazepam 1 mg tablet 1 mg PO DAILY PRN anxiety #15 tabs 07/21/22 diltiazem HCl 240 mg 240 mg PO DAILY #90 caps 11/30/23 capsule,extended release 24 hr atorvastatin 40 mg tablet (Lipitor) 40 mg PO DAILY #90 tabs 03/26/24 venlafaxine 75 mg tablet,extended 75 mg PO DAILY #90 tabs 04/23/24 release 24 hr amlodipine 5 mg tablet 5 mg PO DAILY #90 tabs 05/21/24 apixaban 5 mg tablet 5 mg PO BID #180 tabs 05/21/24 losartan 100 mg tablet 100 mg PO DAILY #90 tabs 05/21/24 prednisone 20 mg tablet 20 mg PO DAILY #26 tabs 05/28/24 sildenafil 50 mg tablet (Viagra) 50 mg PO DAILY PRN sexual activity 05/28/24 #60 tabs Allergies Allergy/AdvReac Type Severity Reaction Status Date / Time No Known Allergies Allergy Verified 05/31/24 06:45 General Stated Complaint: Chest Pain NAKITA: 3 Course Vital Signs Vital signs: Vital Signs Pulse 137 H 05/31/24 06:43 Respiratory Rate 20 05/31/24 06:43 Blood Pressure 158/81 H 05/31/24 06:43 Pulse Oximetry 99 05/31/24 06:43 Pulse 137 H 05/31/24 06:43 Respiratory Rate 13 05/31/24 06:52 Respiratory Effort Short of Breath 05/31/24 06:52 Respiratory Depth Normal 05/31/24 06:52 Respiratory Pattern Normal 05/31/24 06:52 Blood Pressure 158/81 H 05/31/24 06:43 Blood Pressure Position Sitting 05/31/24 06:43 Pulse Oximetry 99 05/31/24 06:43 Oxygen Delivery Method Room Air 05/31/24 06:43 Oxygen Flow Rate 0 05/31/24 06:43 Pain Level 2 05/31/24 06:43 Medical Decision Making Quality:SDOH Health Related Social Needs: No Data to Display Critical Care Time Critical Care Time Critical Care Time: Yes Total Critical Care Time: 35 Attestation: Upon my evaluation, this patient had a high probability of imminent or life-threatening deterioration due to cardiac dysrhythmia requiring emergent treatment, which required my direct attention, intervention, and personal management. I have personally provided 35 minutes of critical care time exclusive of time spent on separately billable procedures. Time includes review of laboratory data, radiology results, discussion with consultants, and monitoring for potential decompensation. Interventions were performed as documented above. Zainab Rahman MD [facility] All Active Problems (Updated 05/31/24 @ 11:57 by Zainab Rahman MD) Adverse effect due to correct medicinal substance, properly given (Acute) Elevated troponin (Acute) Paroxysmal atrial fibrillation (Chronic) Ablation, pulmonary vein isolation in January 2017 at [facility] MARY (obstructive sleep apnea) (Chronic) Original PSG 01/13/17; CPAP Essential hypertension (Chronic) Chronic anticoagulation (Chronic) Eliquis Hyperlipidemia (Chronic) Anal fistula (Chronic) Irritable bowel syndrome (Chronic) Lumbosacral spondylosis without myelopathy (Chronic) Now seeing [facility] [place]illes tendinitis of both lower extremities (Chronic) Headache (Chronic) Generalized anxiety disorder (Chronic) Microscopic hematuria (Chronic) Sensorineural hearing loss (SNHL) of left ear with unrestricted hearing of right ear (Chronic) Umbilical hernia (Chronic) Right inguinal hernia (Chronic) Chewing tobacco use (Chronic) Male erectile disorder (Chronic) Internal hemorrhoids (Chronic) Obesity (BMI 30-39.9) (Chronic) Medical History COVID-19 virus infection (~10/2021) CVA (cerebral vascular accident) (11/20/16) Surgical History H/O vasectomy (03/18/10) S/P colonoscopy (05/16/18) S/P shoulder surgery (08/26/08) Right S/P right knee arthroscopy (~1988) S/P left inguinal hernia repair S/P ablation of atrial fibrillation (02/05/17) Ablation and pulmonary vein isolation Family History Mother Presence of permanent cardiac pacemaker Atrial fibrillation Heart disease Type 2 diabetes mellitus Father Hypertension Sister Type 2 diabetes mellitus Son No problems noted. Son No problems noted. Paternal Grandmother , at 84 of dementia Dementia Paternal Grandfather , At 72 No problems noted. Maternal Grandmother No problems noted. Maternal Grandfather No problems noted. Paternal Uncle Colon cancer Paternal Aunt Colon cancer Social History (Updated 05/29/24 @ 10:40 by Tonie Ochoa) Smoking/Tobacco Use Status: Current every day Tobacco: How many years used: 10 Smokeless tobacco user: chewing tobacco Quit status: considering quitting Second Hand Exposure: Yes Counseling given: patient declined Smoking risk assessment performed?: Yes Alcohol Intake: former Year quit: 1991 Details: quit chewing tobacco three days ago. Drug use: Never Substance use type: does not use Adopted: No Caregiver/Support person: No Household members: spouse Housing: house Number of Children: 2 number of grandchildren: 2 Communication Needs: None Education Level: high school Details: 10th Do you need help understanding health information?: Rarely current occupation: [employer] Pets and animals: Yes Pets and animals: cat(s) and dog(s) Sexually active: Yes Do you think of yourself as: straight/heterosexual Current gender identity: male What is your relationship status?: How often do you talk on the phone with friends or family?: decline to answer How often do you get together with friends or relatives?: decline to answer How often do you attend baptist or islam services?: decline to answer Do you belong to any clubs or organized social groups?: decline to answer Panel score (0-1 are the most socially isolated patients): 1 What type of physical activity do you participate in: other Details: Work Duration: > 90 minutes/day Frequency: daily Anna/Congregational: Non lutheran Special anna needs: No Seatbelt use: always Helmet use: No Drive intox or ride w/intox 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
[2024-05-31] MEDS: Lactated Ringers 1,000 ML 1000 ML IV (07:22)
[2024-05-31] MEDS: Apixaban 5 MG TAB PO (07:24)
[2024-05-31] MEDS: dilTIAZem 25 MG/5 ML VIAL 10 MG IVP (07:29)
[2024-05-31] MEDS: MAGNESIUM SULFATE 2 GM/50 ML BAG IVINF (07:32)
[2024-05-31] MEDS: Normal Saline Flush 10 ML SYR IVP (07:35)
[2024-05-31 08:39] LABS: ALT 18 U/L (16-63); AST 9 U/L (15-37); Albumin 3.5 g/dL (3.4-5.0); Alkaline Phosphatase 69 U/L (46-116); Anion Gap 7.2 mmol/L (3-11); BUN 16 mg/dL (7-18); Bilirubin, Total 0.26 mg/dL (0.2-1.0); CO2 27.8 mmol/L (21.0-32.0); Calcium 8.1 mg/dL (8.5-10.1); Chloride 106 mmol/L (98-107); Estimated GFR 88.88 (mL/min/1.73m2); Glucose 92 mg/dL (74-106); Magnesium 2.3 mg/dL (1.8-2.4); Sodium 141 mmol/L (136-145); Total Protein 6.4 g/dL (6.4-8.2); Troponin I 76 ng/L (<or=76)
--- NOTE | 2024-05-31 08:44 | DI.VRAD_ITS ---
PROCEDURE INFORMATION: Exam: XR Chest Exam date and time: 05/31/2024 7:20 AM Age: 53 years old Clinical indication: Pain; Radiating TECHNIQUE: Imaging protocol: Radiologic exam of the chest. Views: 1 view. COMPARISON: CR XR CHEST 2V PA LATERAL 04/05/2021 1:47 PM FINDINGS: Lungs: Low lung volumes. Pleural spaces: No large pleural effusion seen. Heart/Mediastinum: Cardiac silhouette magnified due to low lung volumes and AP technique. Cannot exclude cardiomegaly or pericardial effusion. Bones/joints: No acute abnormality. IMPRESSION: Enlarged cardiac silhouette as above. Dictated and Authenticated by: Melissa Massey MD. Ordering:MILO Matos MD
[2024-05-31] MEDS: dilTIAZem 30 MG TAB 60 MG PO (09:13)
[2024-05-31] MEDS: Potassium Chloride 20 MEQ TABCR 40 MEQ PO (09:14)
--- NOTE | 2024-05-31 09:45 | RT.EKG_ITS ---
APPROVED REPORT Exam: Resting ECG Reason for Exam: Repeat, now sinus rhythm Patient Location: E HR:81 bpm ECG Measurements Heart Rate 81 AXIS AK 158 P 49 QRSd 102 QRS 73 QT 369 T 9 QTc 429 Conclusion Sinus rhythm, rate 81 No interval abnormality Q wave and T-wave inversion lead III, unachanged Compared to priors, A-fib has converted to sinus rhythm No STEMI
[2024-05-31 09:50] LABS: Troponin I 113 ng/L (<or=76)
--- NOTE | 2024-05-31 10:00 | NUR.NOTE ---
Nursing Note: This RN received report and transfer of care from Vikki Ruiz RN at this time
[2024-05-31 11:35] LABS: Troponin I 106 ng/L (<or=76)
--- NOTE | 2024-05-31 14:08 | NUR.NOTE ---
Request for cardiac echo complete sent to DI for afib, chest pressure with indeterminate troponin elevation, follow up with PCP, to be done 1 to2 week. Request for Regular Exercise Treadmill test sent to DI for chest pain, Referral sent to [facility] notfiying them of these orders. Nursing Note:
== END 2024-05-31 12:15 | disposition home or self-care (01) ==
PROVIDERS: Emergency Provider Emergency Medicine; PCP Nurse Practitioner Family
DX: I48.0 Paroxysmal atrial fibrillation (principal); Z79.01 Long term (current) use of anticoagulants; Z86.73 Personal history of transient ischemic attack (TIA), and cerebral infarction without residual deficits; T38.0X5A Adverse effect of glucocorticoids and synthetic analogues, initial encounter; M47.816 Spondylosis without myelopathy or radiculopathy, lumbar region; I10 Essential (primary) hypertension; E78.5 Hyperlipidemia, unspecified; R79.89 Other specified abnormal findings of blood chemistry
CPT/HCPCS: 36415; 80053; 93005; 96365; 96366; 96375; 99285; 71045; 83735; 84484; 85025; 93010; 99284; J3475

== ENCOUNTER 2024-06-09 01:51 | Outpatient (CLI) | payer OTHER, SELFPAY ==
--- NOTE | 2024-06-09 | ETT_ITS ---
APPROVED REPORT Exam: Exercise Treadmill Patient Location: Out-Patient Room/Bed: Stress Nurse: Kailey Moura RN; Tova Mckeon RN Ordering Provider:BERNARDA DIXON, Contact Number: [phone] BMI: 34.53 Baseline Rhythm: Sinus Rhythm Indications: chest pain Medical History Medical History: HLD, MARY, Afib, chronic anticoagulation, HTN, hx of stroke, anxiety, chewing tobacco , obesity, elevated troponin Cardiac Medications: sumatriptan succinate, lorazepam, diltiazem, prednisone, atorvastatin, venlafexi ne, losartan, amlodipine, apixaban Allergies: NKA Cardiac Risk Factors: family hx, HTN, HLD Previous Cardiac Procedures: cardiac ablation 2016 Pretest Chest Pain Characteristics: none Exercise History: Physically active Physical Disabilities: none Lung Sounds: Clear to auscultation Heart Sounds: Regular Stress Test Details Test: Exercise stress testing was performed using a Clement protocol. Rest Stress HR Resting HR Supine: 82 bpm Max Heart Rate (APMHR): 165 bpm Resting HR Standin bpm Target HR (85% APMHR): 140 bpm Max HR Achieved: 141 bpm % of APMHR: 85 Recovery HR: 101 bpm HR response to stress: Normal HR response to stress BP Resting BP Supine: 118/84 mmHg Resting BP Standin/80 mmHg Max BP: 182/70 mmHg Recovery BP: 124/80 mmHg BP response to stress: Normal blood pressure response to stress. ECG Resting ECG: Sinus Rhythm Ectopy: none Stress ECG: Sinus Tachycardia ST Change: No significant ST segment changes noted Arrhythmia: rare PAC Recovery ECG: Sinus Tachycardia Recovery ST Change: No significant ST segment changes noted Recovery Arrhythmia: rare PAC Clinical Reason for Termination: Target HR Achieved Stress Symptoms: General Fatigue Exercise duration: 10 min21 sec Highest Stage Reached: Stage 4: 4.2 mph at 16% grade. Exercise capacity: 12.40 METs Angina Score: None Beltran Treadmill Score: 9.6 Rate Pressure Product: 35725 Stress ECG Conclusion 1. Resting electrocardiogram was normal 2. Patient exercised on the Clement protocol and completed workload of 12.4 METS 3. Normal heart rate and blood pressure response to exercise. The patient achieved 85% of maximal ag e-predicted heart rate for age 4. There was no electrocardiographic evidence of myocardial ischemia 5. There were no significant dysrhythmias Beltran Treadmill Score is 9.6 which is Low risk. Stress Test Summary STAGE Time (mins) Speed (mph) Grade (%) HR BP SpO2 SYMPTOMS METS Supine 82 118/84 98 Standing 88 120/80 1 3 1.7 10 103 132/78 97 4.5 2 6 2.5 12 115 140/70 95 7 3 9 3.4 14 128 10 4 12 4.2 16 141 13 1 min recovery 133 164/62 3 min recovery 112 182/70 97 6 min recovery 104 142/80 9 min recovery 101 124/80
== END 2024-06-09 02:11 ==
LOC: DI 01:51
PROVIDERS: PCP Nurse Practitioner Family; Visit Provider Emergency Medicine
DX: R06.00 Dyspnea, unspecified (principal); I48.19 Other persistent atrial fibrillation
CPT/HCPCS: 93017

== ENCOUNTER 2024-06-11 02:01 | Outpatient (CLI) | payer OTHER, SELFPAY ==
--- NOTE | 2024-06-11 07:30 | DI.US_ITS ---
APPROVED REPORT EXAM: Comprehensive 2D, Doppler, and color-flow Echocardiogram Patient Location: Out-Patient Hoop Cutter: [facility] ([facility]) Indications: Elevated troponin, afib, chest pressure Echo Enhancing Agent Indication: Endocardial border delineation Agent(s) / Amount(s) Used: Definity 2.0 cc Comments: Contrast study was performed with 1 IV injection of 2cc of diluted definity. Other Information Study Quality: Adequate. Technically limited study due to body habitus. Conclusion Normal left ventricular wall thickness and chamber size. Ejection fraction is 55%. Wall motion is n ormal Normal right ventricular size and function Both atria are normal in size There is no structural or hemodynamically significant valvular disease Wall motion Left Ventricle The left ventricle is normal size. The left ventricular systolic function is normal. The left ventric ular ejection fraction is within the normal range. There is normal left ventricular wall thickness. T here is normal LV segmental wall motion. There is no ventricular septal defect visualized. LVEF is 55 %. Right Ventricle The right ventricle is normal size. The right ventricular systolic function is normal. Atria The left atrium size is normal. The right atrium size is normal. The interatrial septum is intact wit h no evidence for an atrial septal defect. Aortic Valve The aortic valve is normal in structure. Aortic valve is trileaflet. There is no aortic valvular sten osis. No aortic regurgitation is present. Mitral Valve The mitral valve is normal in structure. No evidence of mitral valve stenosis. There is no mitral kathy ve regurgitation noted. Tricuspid Valve The tricuspid valve is normal in structure. There is no tricuspid valve stenosis. Trace tricuspid reg urgitation. Unable to assess PA pressure. Pulmonic Valve The pulmonary valve is normal in structure. There is no pulmonic valvular stenosis. Trace pulmonic re gurgitation. Great Vessels The aortic root is normal in size. The ascending aorta is normal in size. Aortic arch is normal in ca liber. IVC is normal in size and collapses >50% with inspiration. Pericardium There is no pericardial effusion. 2D Dimensions IVSD d PLAX 0.80 cm M: 0.6-1.2 Ao Root d 3.83 cm M: 3.1 - 3.7 LVPW d PLAX 0.77 cm M: 0.6 - 1.2 Ao Asc Diam d 3.23 cm M: 2.6 - 3.4 LVID d PLAX 5.12 cm M: 4.2 - 5.8 LVDs 3.64 cm M: 2.5 - 4.0 LV EF Teichholz 55.1 % FS 28.82 % LV EDV (Teich) 124.7 mL LV ESV (Teich) 56.0 mL Stroke Vol Index (Teich) 32.90 M-Mode TAPSE 2.08 cm (M/F) >1.7 Auto EF LV EDV A4C 137.9 mL LV EDV A2C 127.7 mL LV EDV BP 133.8 mL LV ESV A4C 66.8 mL LV ESV A2C 61.0 mL LV ESV BP 63.8 mL LVEF(%) A4C 51.6 % LVEF(%) A2C 52.3 % LVEF(%) BP 52.3 % LV SV A4C 71.1 ml LV SV A2C 66.8 ml LV SV BP 69.9 ml LV CO A4C 4.9 L/min LV CO A2C 4.7 L/min LV CO BP 4.8 L/min HR A4C 68.29 BPM HR A2C 69.77 BPM LV EDV Index (BP) LA Volume LA Length A4C 3.8 cm LA Length A2C 5.5 cm LA Area A4C s 13.49 cm2 LA Area A2C s 14.50 cm2 LA Vol A4C A-L 40.64 mL LA Vol A2C A-L 32.71 mL LA Vol Biplane A-L 43.7 mL LA Vol/BSA A4C A-L LA Vol/BSA A2C A-L LA Vol/BSA BP A-L 20.9 mL/m2 LA Vol A4C MOD 33.3 mL LA Vol A2C MOD 31.0 mL LA Vol BP MOD 37.5 mL LV Diastology MV E' medial 0.090 (>0.07 m/s) MV E Vmax 0.55 (0.4-1.3 m/s) MV E/E' MED 6.09 (<14) MV A Vmax 0.35 (0.4-1.3 m/s) MV E' lateral 0.084 (>0.1 m/s) E/A Ratio 1.6 MV E/E' LAT 6.53 (<14) MV E' Average 0.087 m/s MV E/E'(average) 6.30 Aortic Valve AoV Vmax 0.94 m/s LVOT Vmax 0.83 m/s AoV Peak Grad 3.5 mmHg LVOT Peak Grad 2.8 mmHg AoV Area (Vmax) 2.80 cm2 LVOT VTI 0.167 m AoV VTI 0.206 m LVOT Mean Grad 1.6 mmHg AoV Mean Haile. 0.67 m/s LVOT SV 52.68 mL AoV Mean Grad 2.1 mmHg LVOT Diam s 2.00 cm AoV Area (VTI) 2.56 cm2 AV Regurg Peak Gr. 3.51 mmHg Velocity Ratio 0.88 Mitral Valve MV DT 126 (160-240 msec) MV Vmax TIPS 0.55 m/s MV Mean Grad 0.5 (<2mmHg) MV VTI 0.184 m Pulmonary Valve PV Vmax 0.91 (0.5-1.5 m/s) RVOT Vmax 0.48 m/s PV Peak Grad 3.3 mmHg RVOT Peak Gr. 0.9 mmHg PV Mean Haile 0.58 m/s RVOT VTI 0.111 m PV Mean Grad 1.6 mmHg RVOT Mean Gr. 0.5 mmHg
== END 2024-06-11 02:21 ==
LOC: DI 02:01
PROVIDERS: PCP Nurse Practitioner Family; Visit Provider Family Medicine
DX: R79.89 Other specified abnormal findings of blood chemistry (principal); I48.20 Chronic atrial fibrillation, unspecified
CPT/HCPCS: C8929

== ENCOUNTER 2024-11-16 12:57 | Emergency (ER) | payer OTHER, SELFPAY ==
[2024-11-16 13:01] VITALS: BP 137/72; PULSE 94; RESP 18; TEMP 36.6; O2SAT 96
[2024-11-16] MEDS: Acetaminophen 500 MG TAB 1000 MG PO (13:21)
--- NOTE | 2024-11-16 13:42 | DI.RAD_ITS ---
Exam(s) XR ELBOW RT COMPLETE XR HUMERUS RT EXAM: XR HUMERUS RT CLINICAL HISTORY: Right mid and proximal humerus pain. TECHNIQUE: 2D digital imaging was performed. COMPARISON: CR,XR XR ELBOW LT COMPLETE from 11/16/2024 CR,XR XR ELBOW RT COMPLETE from 11/16/2024 FINDINGS: BONES: No acute fracture is present. No bony destructive lesion is seen. Joints: Mild degenerative changes of the AC joint and glenohumeral joint. the elbow joint spaces are maintained. There is spurring at the olecranon. SOFT TISSUE: Soft tissue swelling of the distal arm. There are 2 soft tissue calcifications noted po steriorly in the soft tissues of the distal arm. IMPRESSION: Soft tissue swelling. DATA REPOSITORY: RADIATION DOSE DELIVERED:
--- NOTE | 2024-11-16 13:43 | DI.RAD_ITS ---
Exam(s) XR ELBOW LT COMPLETE XR HUMERUS LT EXAM: XR HUMERUS LT CLINICAL HISTORY: Left mid and proximal humerus pain. TECHNIQUE: 2D digital imaging was performed. Two views of the humerus. Three views of the elbow COMPARISON: CR,XR XR ELBOW RT COMPLETE from 11/16/2024 CR,XR XR HUMERUS RT from 11/16/2024 CR,XR XR ELBOW LT COMPLETE from 11/16/2024 FINDINGS: BONES: No acute fracture is present. No bony destructive lesion is seen. Olecranon spur. Joints: Mild degenerative changes of the AC joint and glenohumeral joint. SOFT TISSUE: Soft tissue swelling at the posterior aspect of the distal arm and elbow. IMPRESSION: Soft tissue swelling. DATA REPOSITORY: RADIATION DOSE DELIVERED:
--- NOTE | 2024-11-16 14:19 | DI.VRAD_ITS ---
PROCEDURE INFORMATION: Exam: XR Left Elbow Exam date and time: 11/16/2024 1:30 PM Age: 54 years old Clinical indication: Injury or trauma; Fall; Blunt trauma (contusions or hematomas); Arm, upper and elbow; Bilateral; Injury date: 11/15/24; Left elbow proximal forearm pain TECHNIQUE: Imaging protocol: Radiologic exam of the left elbow. Views: 3 or more views. COMPARISON: CR XR HUMERUS LT 11/16/2024 1:27 PM FINDINGS: Bones/joints: Triceps enthesophytes. No elbow joint effusion. Soft tissues: There is soft tissue swelling. IMPRESSION: No acute fracture or dislocation. Dictated and Authenticated by: Kal Sinclair MD. Orderin Christine Ward MD
--- NOTE | 2024-11-16 14:20 | DI.VRAD_ITS ---
PROCEDURE INFORMATION: Exam: XR Left Humerus Exam date and time: 11/16/2024 1:27 PM Age: 54 years old Clinical indication: Injury or trauma; Fall; Blunt trauma (contusions or hematomas); Arm, upper and elbow; Bilateral; Injury date: 11/15/24; Left mid and proximal humerus pain TECHNIQUE: Imaging protocol: Radiologic exam of the left humerus. Views: 2 or more views. COMPARISON: CR XR PORTABLE CHEST AP 05/31/2024 7:20 AM FINDINGS: Bones/joints: Mild degenerative disease of the acromioclavicular and glenohumeral joint. Soft tissues: Normal. IMPRESSION: No acute fracture or dislocation. Dictated and Authenticated by: Kal Sinclair MD. Orderin Christine Ward MD
--- NOTE | 2024-11-16 14:20 | DI.VRAD_ITS ---
PROCEDURE INFORMATION: Exam: XR Right Humerus Exam date and time: 11/16/2024 1:25 PM Age: 54 years old Clinical indication: Injury or trauma; Fall; Blunt trauma (contusions or hematomas); Arm, upper and elbow; Bilateral; Injury date: 11/15/24; Right mid and proximal humerus pain TECHNIQUE: Imaging protocol: Radiologic exam of the right humerus. Views: 2 or more views. COMPARISON: CR XR PORTABLE CHEST AP 05/31/2024 7:20 AM FINDINGS: Bones/joints: Mild degenerative disease of the acromioclavicular and glenohumeral joints. Corticated bone fragment at the medial humeral epicondyle, related to remote trauma. Soft tissues: Normal. IMPRESSION: No acute fracture or dislocation. Dictated and Authenticated by: Kal Sinclair MD. Orderin Christine Ward MD
--- NOTE | 2024-11-16 14:21 | DI.VRAD_ITS ---
PROCEDURE INFORMATION: Exam: XR Right Elbow Exam date and time: 11/16/2024 1:33 PM Age: 54 years old Clinical indication: Injury or trauma; Blunt trauma (contusions or hematomas); Arm, upper and elbow; Bilateral; Injury date: 11/15/24; Right elbow pain and forearm pain post fall TECHNIQUE: Imaging protocol: Radiologic exam of the right elbow. Views: 3 or more views. COMPARISON: CR XR HUMERUS RT 11/16/2024 1:25 PM FINDINGS: Bones/joints: Corticated bone fragment at the medial epicondyle, sequelae of remote trauma. Triceps enthesophyte. No elbow joint effusion. Soft tissues: Calcifications in the distal triceps tendon/muscle. There is soft tissue swelling. IMPRESSION: No acute fracture or dislocation. Dictated and Authenticated by: Kal Sinclair MD. Orderin Christine Ward MD
--- NOTE | 2024-11-16 14:30 | W.ED.GENAD ---
Discharge Plan Disposition Patient Disposition: Home Discharge Details Clinical Impression: Hx of falling, Pain and swelling of left elbow Primary Care Provider: Kena Rebollar ED Provider: Ed King [place] Meds and New Rx's Prescriptions: Continued sumatriptan succinate [Imitrex] 50 mg tablet 50 mg PO Q2H Qty: 90 0RF Rx Instructions: take 1 tab at onset of headache; if no relief may repeat 1 tab after at least 2 hrs; max = 4 tabs/24 hr PO lorazepam 1 mg tablet 1 mg PO DAILY PRN (Reason: anxiety) Qty: 15 0RF Rx Instructions: Take 1 tablet once a day as needed for increased anxiety sildenafil [Viagra] 50 mg tablet 50 mg PO DAILY PRN (Reason: sexual activity) Qty: 60 0RF Rx Instructions: administer 30 minutes to 4 hours before activity atorvastatin [Lipitor] 40 mg tablet 40 mg PO DAILY Qty: 90 3RF venlafaxine 75 mg tablet extended release 24hr 75 mg PO DAILY Qty: 90 3RF losartan 100 mg tablet 100 mg PO DAILY Qty: 90 3RF amlodipine 5 mg tablet 5 mg PO DAILY Qty: 90 3RF apixaban 5 mg tablet 5 mg PO BID Qty: 180 3RF diltiazem HCl 240 mg capsule,extended release 24hr 240 mg PO DAILY Qty: 90 3RF Rx Instructions: Take 1 tablet once a day Discharge Instructions Additional Instructions: You are seen emergency department for your elbow pain. Your x-ray showed no sign of any fractures. You have some swelling in your joint from your fall. As we discussed if your pain suddenly worsens or does not improve please return to the emergency department. Please wrap and rest your elbow as this will improve your symptoms. For your pain please take medications as follows: 1. Take acetaminophen (Tylenol), 1,000 mg (two 500 mg tabs) every 6 hours Discharge Data Discharge Date/Time-TO BE ENTERED AT DEPARTURE: 11/16/24 14:42 HPI General Date/Time Provider Initiated Documentation: 11/16/24 13:14. HPI Narrative: MDM This is an overall well-appearing 54-year-old [id number] man with left elbow tenderness and swelling with reassuring plain films and soft compartments not consistent with compartment syndrome for which patient will be discharged with empiric trial of expectant outpatient management. Patient has intact range of motion so not concern for bicep tendon injury. He does have likely traumatic left elbow effusion but has had no fevers and has intact range of motion so not concern for septic joint. Given his soft compartments and not concern for compartment syndrome. Given the duration of time since his injury I am not concerned that his symptoms will worsen I did advise that he rest and use an See bandage. I advised ice 20 minutes on 20 minutes off and acetaminophen. I discussed the symptoms did not improve over the next several days or if his symptoms worsen that he should follow-up with a primary care provider. He may benefit from repeat plain films or possibility of advanced imaging such as MRI but will defer this decision to his primary care provider. HPI This is a 54-year-old aenyp-xval-eysifywy male right emergency department via private vehicle with his in the setting of bilateral elbow pain left greater than right. Patient reports that he lost his balance yesterday stepping out of the shower. He did not hit his head or lose consciousness but he has increased pain and swelling to his left elbow. He takes apixaban and she has a history of atrial fibrillation and remote prior CVA. He did not lose consciousness. He did not strike his head. He is not having any limitations in movement of his arms but he is having pain when he moves his arms to the elbows. Exam General: Well-appearing in no acute distress speaking in complete sentences. Head: Normocephalic, atraumatic. Eye: Extraocular eye movements intact. No conjunctival injection. No scleral icterus. Ear, nose, mouth, throat: Grossly normal inspection. Normal voice, handling secretions normally. Neck: Trachea midline. Cardiovascular: Well-perfused distal extremities. Respiratory: Nonlabored respiration. Gastrointestinal: Nondistended abdomen. Musculoskeletal: Left elbow with small effusion. He is able to touch his left elbow to his contralateral right shoulder. He is able to fully flex and extend his left elbow. He is able to fully pronate and supinate. He has intact sensation and motor function left hand across the radial, median, and ulnar nerve distributions. He has tenderness from the proximal left forearm through the left elbow and into the proximal left humerus. He is able to touch his right elbow to his contralateral left shoulder. He is able to fully flex and extend his right elbow. He is able to fully pronate and supinate. He has intact sensation and motor function left hand across the radial, median, and ulnar nerve distributions. He has tenderness from the proximal right forearm through the left elbow and into the proximal right humerus. Bilaterally warm well-perfused hands with 2+ pulses. Skin: Normal for age and race, grossly normal temperature and turgor. No acute rash. Neurologic: Alert and appropriate, no apparent acute deficits. Psychiatric: Mood and manner are appropriate. Grooming and personal hygiene are appropriate. Related Data Home Medications ?Medication ?Instructions ?Recorded ?Confirmed sumatriptan succinate 50 mg tablet 50 mg PO Q2H #90 tabs 03/18/21 11/16/24 (Imitrex) lorazepam 1 mg tablet 1 mg PO DAILY PRN anxiety #15 tabs 07/21/22 11/16/24 atorvastatin 40 mg tablet (Lipitor) 40 mg PO DAILY #90 tabs 03/26/24 11/16/24 venlafaxine 75 mg tablet,extended 75 mg PO DAILY #90 tabs 04/23/24 11/16/24 release 24 hr amlodipine 5 mg tablet 5 mg PO DAILY #90 tabs 05/21/24 11/16/24 apixaban 5 mg tablet 5 mg PO BID #180 tabs 05/21/24 11/16/24 losartan 100 mg tablet 100 mg PO DAILY #90 tabs 05/21/24 11/16/24 sildenafil 50 mg tablet (Viagra) 50 mg PO DAILY PRN sexual activity 05/28/24 11/16/24 #60 tabs diltiazem HCl 240 mg 240 mg PO DAILY #90 caps 11/05/24 11/16/24 capsule,extended release 24 hr Previous Rx's ?Medication ?Instructions ?Recorded sumatriptan succinate 50 mg tablet 50 mg PO Q2H #90 tabs 03/18/21 (Imitrex) lorazepam 1 mg tablet 1 mg PO DAILY PRN anxiety #15 tabs 07/21/22 atorvastatin 40 mg tablet (Lipitor) 40 mg PO DAILY #90 tabs 03/26/24 venlafaxine 75 mg tablet,extended 75 mg PO DAILY #90 tabs 04/23/24 release 24 hr amlodipine 5 mg tablet 5 mg PO DAILY #90 tabs 05/21/24 apixaban 5 mg tablet 5 mg PO BID #180 tabs 05/21/24 losartan 100 mg tablet 100 mg PO DAILY #90 tabs 05/21/24 sildenafil 50 mg tablet (Viagra) 50 mg PO DAILY PRN sexual activity 05/28/24 #60 tabs diltiazem HCl 240 mg 240 mg PO DAILY #90 caps 11/05/24 capsule,extended release 24 hr Allergies Allergy/AdvReac Type Severity Reaction Status Date / Time No Known Allergies Allergy Verified 11/16/24 13:03 General Stated Complaint: Fall/Non TraumaCriteria NAKITA: 3 Course Vital Signs Vital signs: Vital Signs Temperature 36.6 C 11/16/24 13:01 Pulse 94 H 11/16/24 13:01 Respiratory Rate 18 11/16/24 13:01 Blood Pressure 137/72 11/16/24 13:01 Pulse Oximetry 96 11/16/24 13:01 Temperature 36.6 C 11/16/24 13:01 Temperature Source Oral 11/16/24 13:01 Pulse 94 H 11/16/24 13:01 Respiratory Rate 18 11/16/24 13:01 Blood Pressure 137/72 11/16/24 13:01 Blood Pressure Position Sitting 11/16/24 13:01 Pulse Oximetry 96 11/16/24 13:01 Oxygen Delivery Method Room Air 11/16/24 13:01 Oxygen Flow Rate 0 11/16/24 13:01 Medical Decision Making Quality:SDOH Health Related Social Needs: No Data to Display PFSH All Active Problems (Updated 11/16/24 @ 14:31 by Ed King MD) Pain and swelling of left elbow (Acute) Hx of falling (Acute) Paroxysmal atrial fibrillation (Chronic) Ablation, pulmonary vein isolation in January 2017 at [facility] (obstructive sleep apnea) (Chronic) Original PSG 01/13/17; CPAP Essential hypertension (Chronic) Chronic anticoagulation (Chronic) Eliquis Hyperlipidemia (Chronic) Anal fistula (Chronic) Irritable bowel syndrome (Chronic) Lumbosacral spondylosis without myelopathy (Chronic) Now seeing [facility] Achilles tendinitis of both lower extremities (Chronic) Headache (Chronic) Generalized anxiety disorder (Chronic) Microscopic hematuria (Chronic) Sensorineural hearing loss (SNHL) of left ear with unrestricted hearing of right ear (Chronic) Umbilical hernia (Chronic) Right inguinal hernia (Chronic) Chewing tobacco use (Chronic) Male erectile disorder (Chronic) Internal hemorrhoids (Chronic) Obesity (BMI 30-39.9) (Chronic) Medical History COVID-19 virus infection (~10/2021) CVA (cerebral vascular accident) (11/20/16) Surgical History H/O vasectomy (03/18/10) S/P colonoscopy (05/16/18) S/P shoulder surgery (08/26/08) Right S/P right knee arthroscopy (~1988) S/P left inguinal hernia repair S/P ablation of atrial fibrillation (02/05/17) Ablation and pulmonary vein isolation Family History Mother Presence of permanent cardiac pacemaker Atrial fibrillation Heart disease Type 2 diabetes mellitus Father Hypertension Sister Type 2 diabetes mellitus Son No problems noted. Son No problems noted. Paternal Grandmother , at 84 of dementia Dementia Paternal Grandfather , At 72 No problems noted. Maternal Grandmother No problems noted. Maternal Grandfather No problems noted. Paternal Uncle Colon cancer Paternal Aunt Colon cancer Social History (Updated 05/29/24 @ 10:40 by Tonie Ochoa) Smoking/Tobacco Use Status: Current every day Tobacco: How many years used: 10 Smokeless tobacco user: chewing tobacco Quit status: considering quitting Second Hand Exposure: Yes Counseling given: patient declined Smoking risk assessment performed?: Yes Alcohol Intake: former Year quit: 1991 Details: quit chewing tobacco three days ago. Drug use: Never Substance use type: does not use Adopted: No Caregiver/Support person: No Household members: spouse Housing: house Number of Children: 2 number of grandchildren: 2 Communication Needs: None Education Level: high school Details: 10th Do you need help understanding health information?: Rarely current occupation: [employer] Pets and animals: Yes Pets and animals: cat(s) and dog(s) Sexually active: Yes Do you think of yourself as: straight/heterosexual Current gender identity: male What is your relationship status?: How often do you talk on the phone with friends or family?: decline to answer How often do you get together with friends or relatives?: decline to answer How often do you attend holiness or nondenominational services?: decline to answer Do you belong to any clubs or organized social groups?: decline to answer Panel score (0-1 are the most socially isolated patients): 1 What type of physical activity do you participate in: other Details: Work Duration: > 90 minutes/day Frequency: daily Anna/Rastafari: Non pentecostalism Special anna needs: No Seatbelt use: always Helmet use: No Drive intox or ride w/intox 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
== END 2024-11-16 14:42 | disposition home or self-care (01) ==
PROVIDERS: Emergency Provider Emergency Medicine; PCP Nurse Practitioner Family
DX: M25.522 Pain in left elbow (principal); M25.521 Pain in right elbow; M25.422 Effusion, left elbow; M25.421 Effusion, right elbow; I10 Essential (primary) hypertension; I48.91 Unspecified atrial fibrillation; Z86.73 Personal history of transient ischemic attack (TIA), and cerebral infarction without residual deficits; Z79.01 Long term (current) use of anticoagulants
CPT/HCPCS: 99283; 73060; 73080

== ENCOUNTER 2024-11-18 09:58 | Emergency (ER) | payer OTHER, SELFPAY ==
[2024-11-18 10:09] VITALS: BP 168/94; PULSE 100; RESP 14; TEMP 36.5; O2SAT 94
--- NOTE | 2024-11-18 10:17 | ED.GENADUL_ITS ---
Discharge Plan Disposition Patient Disposition: Home Condition: Stable Discharge Details Clinical Impression: Hematoma of right upper extremity, Hematoma of left upper extremity Primary Care Provider: Kena Rebollar ED Provider: Zach Venegas Home Meds and New Rx's Prescriptions: Continued sumatriptan succinate [Imitrex] 50 mg tablet 50 mg PO Q2H Qty: 90 0RF Rx Instructions: take 1 tab at onset of headache; if no relief may repeat 1 tab after at least 2 hrs; max = 4 tabs/24 hr PO lorazepam 1 mg tablet 1 mg PO DAILY PRN (Reason: anxiety) Qty: 15 0RF Rx Instructions: Take 1 tablet once a day as needed for increased anxiety sildenafil [Viagra] 50 mg tablet 50 mg PO DAILY PRN (Reason: sexual activity) Qty: 60 0RF Rx Instructions: administer 30 minutes to 4 hours before activity atorvastatin [Lipitor] 40 mg tablet 40 mg PO DAILY Qty: 90 3RF venlafaxine 75 mg tablet extended release 24hr 75 mg PO DAILY Qty: 90 3RF losartan 100 mg tablet 100 mg PO DAILY Qty: 90 3RF amlodipine 5 mg tablet 5 mg PO DAILY Qty: 90 3RF apixaban 5 mg tablet 5 mg PO BID Qty: 180 3RF diltiazem HCl 240 mg capsule,extended release 24hr 240 mg PO DAILY Qty: 90 3RF Rx Instructions: Take 1 tablet once a day Discharge Instructions Instructions: Acute compartment syndrome, Minor Contusion ED Additional Instructions: You were seen in the emergency department for your traumatic hematomas of bilateral arms, you have maintained range of motion in your arms, you are on day 3 and there is no evidence of expanding hematoma or active bleeding into the compartments of the arm. You need to remain in gentle compression wraps to help resorb some of this congealed blood of hematoma. He needs to watch out for compartment syndrome which I have provided patient education materials on this would be especially high risk if you suffer further trauma to your arms. You may alternate heat and ice to the areas of pain and perform very gentle massage to encourage these hematomas to resorb, please return for any signs of neurovascular compromise or other emergent concerns. Referrals: [facility] [Provider Group] Kena Rebollar NP [Primary Care Provider] - HPI General Date/Time Provider Initiated Documentation: 03/04/25 10:02 . HPI Narrative: 54 year-old male presents to ED today by POV/ambulating with a chief complaint of bilateral arm pain and bruising, sent from [facility] for evaluation with onset from a fall on Sunday (day 3) getting out of the shower- patient is on Eliquis. Quality described as firm tender swollen arms from mid-upper arm through the elbows, no radiation to pallor or skin changes distal to bruising, coldness to hands, inability to ROM the hands, numbness distally, denies headstrike/LOC, endorses nausea. Severity is described as severe. Palliating factors include nothing specific attempted. Provoking factors include nothing specific. Patient is anticoagulated on Eliquis. Related Data Home Medications ?Medication ?Instructions ?Recorded ?Confirmed sumatriptan succinate 50 mg tablet 50 mg PO Q2H #90 tabs 03/18/21 11/18/24 (Imitrex) lorazepam 1 mg tablet 1 mg PO DAILY PRN anxiety #15 tabs 07/21/22 11/18/24 atorvastatin 40 mg tablet (Lipitor) 40 mg PO DAILY #90 tabs 03/26/24 11/18/24 venlafaxine 75 mg tablet,extended 75 mg PO DAILY #90 tabs 04/23/24 11/18/24 release 24 hr amlodipine 5 mg tablet 5 mg PO DAILY #90 tabs 05/21/24 11/18/24 apixaban 5 mg tablet 5 mg PO BID #180 tabs 05/21/24 11/18/24 losartan 100 mg tablet 100 mg PO DAILY #90 tabs 05/21/24 11/18/24 sildenafil 50 mg tablet (Viagra) 50 mg PO DAILY PRN sexual activity 05/28/24 11/18/24 #60 tabs diltiazem HCl 240 mg 240 mg PO DAILY #90 caps 11/05/24 11/18/24 capsule,extended release 24 hr Previous Rx's ?Medication ?Instructions ?Recorded sumatriptan succinate 50 mg tablet 50 mg PO Q2H #90 tabs 03/18/21 (Imitrex) lorazepam 1 mg tablet 1 mg PO DAILY PRN anxiety #15 tabs 07/21/22 atorvastatin 40 mg tablet (Lipitor) 40 mg PO DAILY #90 tabs 03/26/24 venlafaxine 75 mg tablet,extended 75 mg PO DAILY #90 tabs 04/23/24 release 24 hr amlodipine 5 mg tablet 5 mg PO DAILY #90 tabs 05/21/24 apixaban 5 mg tablet 5 mg PO BID #180 tabs 05/21/24 losartan 100 mg tablet 100 mg PO DAILY #90 tabs 05/21/24 sildenafil 50 mg tablet (Viagra) 50 mg PO DAILY PRN sexual activity 05/28/24 #60 tabs diltiazem HCl 240 mg 240 mg PO DAILY #90 caps 11/05/24 capsule,extended release 24 hr Allergies Allergy/AdvReac Type Severity Reaction Status Date / Time No Known Allergies Allergy Verified 11/18/24 10:13 General Stated Complaint: Orthopedic NAKITA: 4 Review of Systems All systems reviewed & are unremarkable except as noted in HPI and below Exam Narrative Exam Narrative: GENERAL APPEARANCE: Well-nourished, non-toxic, awake and alert, atraumatic, no acute distress. SKIN: Warm, pink, dry, intact, without rashes/lesions/ulcerations. HEAD: Normocephalic, atraumatic, normal hair distribution for gender/age. EYES: Normal conjunctiva, no exudates on lids/lashes. ENT: Nares patent, no circumoral cyanosis, no facial swelling NECK: Supple, trachea midline, painless cervical ROM. LUNGS/CHEST: Non-labored respirations, normal A/P diameter, symmetrical expansion, no chest wall deformity HEART (CV/PV): Regular rate, R & L radial pulses 2+, no peripheral edema, no JVD. ABDOMEN: Soft, non-distended, no guarding. MSK: Normal ROM, no deformity to bilateral UEs or LEs, moving all extremities without weakness, no cyanosis, spine midline without tenderness, normal curvature, bilateral large hematomas from posterior upper arm through the proximal forearm, supination/pronation intact, endoscopy support specialist strength 5/5 bilaterally, bilateral radial pulse 2+, brisk capillary refill in the hands, no coldness to touch, no significant firmness to forearm compartments, does have exquisite tenderness over the large hematomas of bilateral arms NEURO: Mental Status AAOx4 - alert to person, place, time, events No facial droop, no forehead involvement. Motor: No focal weakness - strength 5/5 in bilateral UEs and LEs, proximal and distal, symmetric. Sensory: sensation intact to light touch globally. Gait normal: patient ambulated without ataxia into ED room. PSYCH: euthymic, cooperative, pleasant, appropriate speech Course Vital Signs Vital signs: Vital Signs Temperature 36.5 C 11/18/24 10:09 Pulse 100 H 11/18/24 10:09 Respiratory Rate 14 11/18/24 10:09 Blood Pressure 168/94 H 11/18/24 10:09 Pulse Oximetry 94 11/18/24 10:09 Temperature 36.5 C 11/18/24 10:09 Temperature Source Oral 11/18/24 10:09 Pulse 100 H 11/18/24 10:09 Respiratory Rate 14 11/18/24 10:09 Blood Pressure 168/94 H 11/18/24 10:09 Blood Pressure Position Sitting 11/18/24 10:09 Pulse Oximetry 94 11/18/24 10:09 Oxygen Delivery Method Room Air 11/18/24 10:09 Oxygen Flow Rate 0 11/18/24 10:09 Pain Level 5 11/18/24 10:09 Medical Decision Making This dictation utilizes [id number] dictation software and may contain unedited grammatical errors. 54 year-old male presents to ED today by POV/ambulating with a chief complaint of bilateral arm pain and bruising, sent from [facility] for evaluation with onset from a fall on Sunday (day 3) getting out of the shower- patient is on Eliquis. Quality described as firm tender swollen arms from mid-upper arm through the elbows, no radiation to pallor or skin changes distal to bruising, coldness to hands, inability to ROM the hands, numbness distally, denies headstrike/LOC, endorses nausea. Severity is described as severe. Palliating factors include nothing specific attempted. Provoking factors include nothing specific. Patients' medical history: History of CVA, history of falling, paroxysmal A-fib, hypertension, hyperlipidemia, lumbosacral spondylosis without myelopathy. 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 Pertinent exam findings / vital signs include bilateral large hematomas with ecchymosis to distal mid upper arm through the elbows, some firmness but not extreme tenderness to light touch, range of motion and endoscopy support specialist strength intact in the hands, sensation intact, brisk capillary refill with no coolness to palpat ion, maintains range of motion of the elbows for supination/pronation. Differential / pathologies of concern include unlikely DVT, less likely compartment syndrome, likely hematomas. Diagnostic studies of: -CBC, CMP, CT right and left upper extremities with contrast. -CBC is unremarkable -CMP is unremarkable -CT UEs shows large edema/hematomas from forearm to triceps area, question some intramuscular hematoma at L triceps insertion at elbow, no subQ gas Interventions of: -Consult Ortho - do not suspect compartment syndrome, treatment plan for compression wraps and elevation w/ strict return criteria. ED Course/Assessment/Plan: 54-year-old male suffered a fall in the shower last week having large hematomas from his forearms through triceps posterior aspects of bilateral arms, he has a question of small intramuscular hematoma near the triceps insertion of the left arm but range of motion is intact and only limited to pain. I do not suspect any compartment syndrome at this time though I did prenatal genetic counselor him to watch out for any increasing paresthesias, extreme pain, skin changes send temperature changes of the arm distal to his hematomas. Not concern for DVT as he is on Eliquis, I did send a message to orthopedics but the patient wished to depart, it is my hope that he could follow-up with them in office should any complications arise but at this time I just recommend elevation and gentle compression. Findings not consistent with neurovascular compromise, compartment syndrome, DVT. Disposition of hematoma of left upper extremity, hematoma of right upper extremity. Patient verbalized understanding of the plan and return to ED criteria and engaged in shared decision making. Medical Records Medical records reviewed: Yes I reviewed the patient's medical records. Imaging Data Radiologic Study: Attestation: I personally reviewed and interpreted this imaging study as follows: Imaging: CT Scan Radiologist's impression: EXAM: CT UPPER EXTREMITY LT W CLINICAL HISTORY: bilat large upper arm hematomas, on thinners TECHNIQUE: Imaging Protocol: Axial computed tomography images with coronal and sagittal reformatted images were created and reviewed. CONTRAST MATERIAL: Intravenous: Omnipaque 350 Contrast volume:100 contrast route:IV - COMPARISON: No exams were available for comparison FINDINGS: OSSEOUS: No fractures identified bony structures of the left upper extremity. SOFT TISSUES: There is prominent cutaneous edema over the posterior-medial aspect of the forearm. No obvious active extravasation from the vasculature seen. Edema also seen over the olecranon bursa area and extending above the elbow level. Some heterogeneous density is seen in the distal triceps.. This may imply an element of intramuscular hematoma in the distal triceps. There are no puncture wounds. No gas in the soft tissues. IMPRESSION: Soft tissue findings as above. No evidence of obvious active extravasation to suggest ongoing acute bleeding. Radiologic Study #2: Attestation: I personally reviewed and interpreted this imaging study as follows: Imaging: CT Scan Radiologist's impression: EXAM: CT UPPER EXTREMITY RT W CLINICAL HISTORY: bilat large upper arm hematomas, on thinners TECHNIQUE: Imaging Protocol: Axial computed tomography images with coronal and sagittal reformatted images were created and reviewed. CONTRAST MATERIAL: Intravenous: Omnipaque 350 Contrast volume:100 contrast route:IV - COMPARISON: CT CT UPPER EXTREMITY LT W from 11/18/2024 FINDINGS: OSSEOUS: No fractures evident in the right upper extremity. SOFT TISSUES: There is prominent subcutaneous edema over dorsal aspect the forearm a lesser amount anteriorly in the forearm. No puncture wound evident. No abscess evident. No radiopaque foreign body. No obvious arterial ex travasation. IMPRESSION: Subcutaneous soft tissue edema predominately in the forearm, but also distending above the elbow level. No obvious active arterial extravasation. Lab Data Lab results reviewed: Yes I reviewed the patient's lab results. Labs: Laboratory Tests Range/Units 11/18/24 10:53 WBC (4.4-10.8) 10^3/uL 10.20 RBC (4.36-5.78) 10^6/uL 3.95 L Hgb (13.5-17.5) g/dL 12.9 L Hct (40.0-50.0) % 36.3 L MCV (80-95) fL 92 MCH (27.0-33.0) pg 32.7 MCHC (32.0-36.0) % 35.5 RDW (11.8-14.1) % 12.6 Plt Count (130-400) 10^3/uL 288 MPV (8.0-11.0) fL 9.5 Immature Gran % % 0.4 Neutrophils % % 69.7 Lymphocytes % % 17.2 Monocytes % % 10.5 Eosinophils % % 1.7 Basophils % % 0.5 Nucleated RBC % (0.0-0.3) % 0.0 Absolute Neutrophils (1.2-6.7) 10^3/uL 7.12 H Absolute Lymphocytes (1.2-3.4) 10^3/uL 1.75 Absolute Monocytes (0.1-0.8) 10^3/uL 1.07 H Absolute Eosinophils (0.0-0.7) 10^3/uL 0.17 Absolute Basophils (0.0-0.2) 10^3/uL 0.05 Sodium (136-145) mmol/L 139 Potassium (3.5-5.1) mmol/L 3.5 Chloride (98-107) mmol/L 102 Carbon Dioxide (21.0-32.0) mmol/L 26.4 Anion Gap (3-11) mmol/L 10.6 BUN (7-18) mg/dL 17 Creatinine (0.70-1.30) mg/dL 1.0 Est GFR (CKD-EPI 2020) (mL/min/1.73m2) 88.33 Glucose (74-106) mg/dL 98 Calcium (8.5-10.1) mg/dL 8.9 Total Bilirubin (0.2-1.0) mg/dL 0.53 AST (15-37) U/L 52 H ALT (16-63) U/L 37 Alkaline Phosphatase (46-116) U/L 86 Total Protein (6.4-8.2) g/dL 7.6 Albumin (3.4-5.0) g/dL 3.9 Quality:SDOH Health Related Social Needs: No Data to Display PFSH All Active Problems (Updated 11/18/24 @ 14:35 by MIAH Serrano) Hematoma of left upper extremity (Acute) Hematoma of right upper extremity (Acute) Pain and swelling of left elbow (Acute) Hx of falling (Acute) Paroxysmal atrial fibrillation (Chronic) Ablation, pulmonary vein isolation in January 2017 at [facility] (obstructive sleep apnea) (Chronic) Original PSG 01/13/17; CPAP Essential hypertension (Chronic) Chronic anticoagulation (Chronic) Eliquis Hyperlipidemia (Chronic) Anal fistula (Chronic) Irritable bowel syndrome (Chronic) Lumbosacral spondylosis without myelopathy (Chronic) Now seeing [facility] Achilles tendinitis of both lower extremities (Chronic) Headache (Chronic) Generalized anxiety disorder (Chronic) Microscopic hematuria (Chronic) Sensorineural hearing loss (SNHL) of left ear with unrestricted hearing of right ear (Chronic) Umbilical hernia (Chronic) Right inguinal hernia (Chronic) Chewing tobacco use (Chronic) Male erectile disorder (Chronic) Internal hemorrhoids (Chronic) Obesity (BMI 30-39.9) (Chronic) Medical History COVID-19 virus infection (~10/2021) CVA (cerebral vascular accident) (11/20/16) Surgical History H/O vasectomy (03/18/10) S/P colonoscopy (05/16/18) S/P shoulder surgery (08/26/08) Right S/P right knee arthroscopy (~1988) S/P left inguinal hernia repair S/P ablation of atrial fibrillation (02/05/17) Ablation and pulmonary vein isolation Family History Mother Presence of permanent cardiac pacemaker Atrial fibrillation Heart disease Type 2 diabetes mellitus Father Hypertension Sister Type 2 diabetes mellitus Son No problems noted. Son No problems noted. Paternal Grandmother , at 84 of dementia Dementia Paternal Grandfather , At 72 No problems noted. Maternal Grandmother No problems noted. Maternal Grandfather No problems noted. Paternal Uncle Colon cancer Paternal Aunt Colon cancer Social History (Updated 05/29/24 @ 10:40 by Tonie Ochoa) Smoking/Tobacco Use Status: Current every day Tobacco: How many years used: 10 Smokeless tobacco user: chewing tobacco Quit status: considering quitting Second Hand Exposure: Yes Counseling given: patient declined Smoking risk assessment performed?: Yes Alcohol Intake: former Year quit: 1991 Details: quit chewing tobacco three days ago. Drug use: Never Substance use type: does not use Adopted: No Caregiver/Support person: No Household members: spouse Housing: house Number of Children: 2 number of grandchildren: 2 Communication Needs: None Education Level: high school Details: 10th Do you need help understanding health information?: Rarely current occupation: [employer] Pets and animals: Yes Pets and animals: cat(s) and dog(s) Sexually active: Yes Do you think of yourself as: straight/heterosexual Current gender identity: male What is your relationship status?: How often do you talk on the phone with friends or family?: decline to answer How often do you get together with friends or relatives?: decline to answer How often do you attend rastafarian or faith services?: decline to answer Do you belong to any clubs or organized social groups?: decline to answer Panel score (0-1 are the most socially isolated patients): 1 What type of physical activity do you participate in: other Details: Work Duration: > 90 minutes/day Frequency: daily Nana/Roman Catholic: Non jainism Special anna needs: No Seatbelt use: always Helmet use: No Drive intox or ride w/intox local bulk driver: No Firearms in home: Yes Firearms unloaded and locked: Yes Do you feel safe at home: Yes Do you feel safe in your relationship?: Yes Victim of physical abuse: No Victim of emotional abuse: No Victim of sexual abuse: No Would you like helpful sources: No
--- NOTE | 2024-11-18 10:30 | DI.CT_ITS ---
Exam(s) CT UPPER EXTREMITY RT W EXAM: CT UPPER EXTREMITY RT W CLINICAL HISTORY: bilat large upper arm hematomas, on thinners TECHNIQUE: Imaging Protocol: Axial computed tomography images with coronal and sagittal reformatted images were created and reviewed. CONTRAST MATERIAL: Intravenous: Omnipaque 350 Contrast volume:100 contrast route:IV - COMPARISON: CT CT UPPER EXTREMITY LT W from 11/18/2024 FINDINGS: OSSEOUS: No fractures evident in the right upper extremity. SOFT TISSUES: There is prominent subcutaneous edema over dorsal aspect the forearm a lesser amount an teriorly in the forearm. No puncture wound evident. No abscess evident. No radiopaque foreign body . No obvious arterial extravasation. IMPRESSION: Subcutaneous soft tissue edema predominately in the forearm, but also distending above the elbow leve l. No obvious active arterial extravasation. Findings discussed with ER provider. RADIATION DOSE DELIVERED: 871.57mGy.cm Total DLP DATA REPOSITORY: All CT scans at this facility are submitted to the National Radiology Data Registry (NRDR) Dose Index Registry (DIR) with the [employer] (A[employer]). RADIATION OPTIMIZATION: All CT scans at this facility use at least one of these dose optimization te chniques: automated exposure control; mA and/or kV adjustment per patient size (includes targeted exa ms where dose is matched to clinical indication); or iterative reconstruction.
--- NOTE | 2024-11-18 10:30 | DI.CT_ITS ---
Exam(s) CT UPPER EXTREMITY LT W EXAM: CT UPPER EXTREMITY LT W CLINICAL HISTORY: bilat large upper arm hematomas, on thinners TECHNIQUE: Imaging Protocol: Axial computed tomography images with coronal and sagittal reformatted images were created and reviewed. CONTRAST MATERIAL: Intravenous: Omnipaque 350 Contrast volume:100 contrast route:IV - COMPARISON: No exams were available for comparison FINDINGS: OSSEOUS: No fractures identified bony structures of the left upper extremity. SOFT TISSUES: There is prominent cutaneous edema over the posterior-medial aspect of the forearm. No obvious active extravasation from the vasculature seen. Edema also seen over the olecranon bursa ar ea and extending above the elbow level. Some heterogeneous density is seen in the distal triceps.. This may imply an element of intramuscular hematoma in the distal triceps. There are no puncture wounds. No gas in the soft tissues. IMPRESSION: Soft tissue findings as above. No evidence of obvious active extravasation to suggest ongoing acute bleeding. RADIATION DOSE DELIVERED: 871.57mGy.cm Total DLP DATA REPOSITORY: All CT scans at this facility are submitted to the National Radiology Data Registry (NRDR) Dose Index Registry (DIR) with the [employer] (ACR). RADIATION OPTIMIZATION: All CT scans at this facility use at least one of these dose optimization te chniques: automated exposure control; mA and/or kV adjustment per patient size (includes targeted exa ms where dose is matched to clinical indication); or iterative reconstruction.
[2024-11-18 10:56] LABS: Abs Immature Grans 0.04 10^3/uL (0.0-0.06); Absolute Basophil Count 0.05 10^3/uL (0.0-0.2); Absolute Eosinophil Count 0.17 10^3/uL (0.0-0.7); Absolute Lymphocyte Count 1.75 10^3/uL (1.2-3.4); Absolute Monocyte Count 1.07 10^3/uL (0.1-0.8); Absolute Neutrophil Count 7.12 10^3/uL (1.2-6.7); Basophils % 0.5 %; Eosinophils % 1.7 %; HCT 36.3 % (40.0-50.0); HGB 12.9 g/dL (13.5-17.5); Immature Grans % 0.4 %; Lymphocytes % 17.2 %; MCH 32.7 pg (27.0-33.0); MCHC 35.5 % (32.0-36.0); MCV 92 fL (80-95); MPV 9.5 fL (8.0-11.0); Monocytes % 10.5 %; Neutrophils % 69.7 %; Platelet Count 288 10^3/uL (130-400); RBC 3.95 10^6/uL (4.36-5.78); RDW 12.6 % (11.8-14.1); RDW-SD 41.6 fL
[2024-11-18 11:17] LABS: ALT 37 U/L (16-63); AST 52 U/L (15-37); Albumin 3.9 g/dL (3.4-5.0); Alkaline Phosphatase 86 U/L (46-116); Anion Gap 10.6 mmol/L (3-11); BUN 17 mg/dL (7-18); Bilirubin, Total 0.53 mg/dL (0.2-1.0); CO2 26.4 mmol/L (21.0-32.0); Calcium 8.9 mg/dL (8.5-10.1); Chloride 102 mmol/L (98-107); Estimated GFR 88.33 (mL/min/1.73m2); Glucose 98 mg/dL (74-106); Potassium 3.5 mmol/L (3.5-5.1); Sodium 139 mmol/L (136-145); Total Protein 7.6 g/dL (6.4-8.2)
[2024-11-18] MEDS: Normal Saline - Diluent 50 ML VIAL IJ ×2 (12:35→13:24)
[2024-11-18] MEDS: Omnipaque 350 MG/ML 500 ML BTL-Imaging package 100 ML IJ (12:36)
[2024-11-18] MEDS: Omnipaque 350 MG/ML 100 ML BTL IJ (13:25)
[2024-11-18 14:28] VITALS: BP 153/103; PULSE 91; RESP 12; O2SAT 97
== END 2024-11-18 14:51 | disposition home or self-care (01) ==
PROVIDERS: Emergency Provider Physician Assistant; PCP Nurse Practitioner Family
DX: S40.022A Contusion of left upper arm, initial encounter (principal); S40.021A Contusion of right upper arm, initial encounter; I48.0 Paroxysmal atrial fibrillation; I10 Essential (primary) hypertension; F17.220 Nicotine dependence, chewing tobacco, uncomplicated; W18.2XXA Fall in (into) shower or empty bathtub, initial encounter; Y93.E1 Activity, personal bathing and showering; Y92.091 Bathroom in other non-institutional residence as the place of occurrence of the external cause
CPT/HCPCS: 80053; 99285; 73201; 85025; 99284; J3490

== ENCOUNTER 2024-11-27 07:24 | Outpatient (REF) | payer OTHER, SELFPAY ==
[2024-11-27 16:39] LABS: Bilirubin Negative (Negative); Blood Trace-lysed (Negative); Clarity Clear (Clear); Glucose Negative (Negative); Ketones Negative (Negative); Leukocyte Esterase Negative (Negative); Nitrite Negative (Negative); Specific Gravity 1.025 (1.005-1.025); Urobilinogen 0.2 mg/dL (Up to 0.2)
[2024-11-27 16:58] LABS: Bacteria Negative HPF (Negative); C & S Indicated? No; Crystals Rare Calcium Oxalate HPF (Negative); Epithelial Cells Negative HPF (Negative); Mucus Moderate (Negative); WBC Negative HPF (0-5)
== END 2024-11-27 07:25 | disposition home or self-care (01) ==
LOC: LBN 07:24
PROVIDERS: PCP Nurse Practitioner Family; Visit Provider Nurse Practitioner Family
DX: R82.998 Other abnormal findings in urine (principal); S40.022A Contusion of left upper arm, initial encounter; S40.021A Contusion of right upper arm, initial encounter
CPT/HCPCS: 81003; 81015

== ENCOUNTER 2024-12-17 07:53 | Outpatient (CLI) | payer OTHER, SELFPAY ==
--- NOTE | 2024-12-17 07:45 | RT.EKG_ITS ---
APPROVED REPORT Exam: Resting ECG Reason for Exam: PAF Patient Location: O HR:87 bpm ECG Measurements Heart Rate 87 AXIS TN 149 P 24 QRSd 107 QRS 49 QT 362 T 42 QTc 436 Conclusion Sinus rhythm...normal P axis, V-rate 50- 99 Normal Electrocardiogram
== END 2024-12-17 07:54 | disposition home or self-care (01) ==
LOC: DI.CARD 07:54
PROVIDERS: PCP Nurse Practitioner Family; Visit Provider Internal Medicine Cardiovascular Disease
DX: I48.0 Paroxysmal atrial fibrillation (principal)
CPT/HCPCS: 93010

== ENCOUNTER 2025-06-01 07:38 | Outpatient (CLI) | payer OTHER, SELFPAY ==
[2025-06-01 14:22] LABS: Abs Immature Grans 0.03 10^3/uL (0.0-0.06); HCT 40.7 % (40.0-50.0); HGB 14.5 g/dL (13.5-17.5); Immature Grans % 0.5 %; MCH 33.6 pg (27.0-33.0); MCHC 35.6 % (32.0-36.0); MCV 94 fL (80-95); MPV 9.9 fL (8.0-11.0); Platelet Count 256 10^3/uL (130-400); RBC 4.31 10^6/uL (4.36-5.78); RDW 12.1 % (11.8-14.1); RDW-SD 41.9 fL; WBC 6.16 10^3/uL (4.4-10.8)
[2025-06-01 14:33] LABS: Hemoglobin A1C 5.0 % (<5.7)
[2025-06-01 14:53] LABS: ALT 29 U/L (16-63); AST 18 U/L (15-37); Albumin 4.2 g/dL (3.4-5.0); Alkaline Phosphatase 88 U/L (46-116); Anion Gap 9.4 mmol/L (3-11); BUN 19 mg/dL (7-18); Bilirubin, Total 0.3 mg/dL (0.2-1.0); CO2 27.6 mmol/L (21.0-32.0); Calcium 9.0 mg/dL (8.5-10.1); Calculated LDL 59 mg/dL (<100); Chloride 103 mmol/L (98-107); Cholesterol 117 mg/dL (<200); Estimated GFR 88.33 (mL/min/1.73m2); Glucose 113 mg/dL (74-106); HDL Cholesterol 45 mg/dL (>or=40); Potassium 3.6 mmol/L (3.5-5.1); Sodium 140 mmol/L (136-145); TSH (W/Ref FT4) 1.80 uIU/mL (0.36-3.74); Total Protein 7.4 g/dL (6.4-8.2); Triglyceride 66 mg/dL (<150)
[2025-06-16 10:09] LABS: Testosterone, Free 7.01 ng/dL (3.87-14.7)
== END 2025-06-01 07:39 | disposition home or self-care (01) ==
LOC: LOS 07:39
PROVIDERS: PCP Nurse Practitioner Family; Visit Provider Nurse Practitioner Family
DX: R53.83 Other fatigue (principal); I48.0 Paroxysmal atrial fibrillation
CPT/HCPCS: 36415; 80053; 80061; 84402; 84403; 83036; 84443; 85025

== ENCOUNTER 2025-08-25 16:23 | Emergency (ER) | payer OTHER, SELFPAY ==
[2025-08-25 16:25] VITALS: BP 155/89; PULSE 90; RESP 18; TEMP 36.9; O2SAT 98
[2025-08-25 16:27] VITALS: BP 155/89; PULSE 90; RESP 18; TEMP 36.9; O2SAT 98
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
[2025-08-25] MEDS: Hepatitis B Virus Vaccine 20 MCG/ML VIAL IM (17:14)
[2025-08-25 17:35] LABS: Abs Immature Grans 0.02 10^3/uL (0.0-0.06); HCT 41.7 % (40.0-50.0); HGB 14.7 g/dL (13.5-17.5); Immature Grans % 0.3 %; MCH 32.2 pg (27.0-33.0); MCHC 35.3 % (32.0-36.0); MCV 91 fL (80-95); MPV 9.5 fL (8.0-11.0); Platelet Count 258 10^3/uL (130-400); RBC 4.57 10^6/uL (4.36-5.78); RDW 12.3 % (11.8-14.1); RDW-SD 40.8 fL; WBC 7.46 10^3/uL (4.4-10.8)
[2025-08-25 17:51] LABS: ALT 21 U/L (10-49); AST 19 U/L (<34); Albumin 4.6 g/dL (3.2-5.0); Alkaline Phosphatase 83 U/L (46-116); Anion Gap 8.1 mmol/L (3-11); BUN 14 mg/dL (9-23); Bilirubin, Total 0.4 mg/dL (0.2-1.2); CO2 28.9 mmol/L (20.0-31.0); Calcium 8.6 mg/dL (8.3-10.6); Chloride 103 mmol/L (98-107); Glucose 84 mg/dL (74-106); Potassium 3.5 mmol/L (3.5-5.1); Sodium 140 mmol/L (136-145); Total Protein 7.4 g/dL (5.7-8.2)
[2025-08-26 18:49] LABS: Hepatitis A Antibody IgM Negative (Negative); Hepatitis C Ab w Rflx HCV PCR Negative (Negative)
[2025-08-26 19:02] LABS: HIV-1/2 Ag & Ab Screen Negative (Negative)
[2025-08-27 11:17] LABS: Syphilis Serology (RPR) Negative (Negative)
== END 2025-08-25 17:27 | disposition home or self-care (01) ==
PROVIDERS: Emergency Provider Nurse Practitioner Family; PCP Nurse Practitioner Family
DX: Z77.21 Contact with and (suspected) exposure to potentially hazardous body fluids (principal); Z23 Encounter for immunization; Y99.0 Civilian activity done for income or pay; Y92.149 Unspecified place in prison as the place of occurrence of the external cause
CPT/HCPCS: 99283; 99284; 90471; 80053; 86704; 86709; 86803; 87340; 87389; 90746; 85025; 86592